=== PATIENT | female | born 1975 | race Caucasian/White ===

== ENCOUNTER 2016-10-04 05:47 | Emergency (ER) | payer OTHER ==
[~2016-10-04] VITALS: Ht 160 cm; Wt 53.4 kg
[~2016-10-04 05:47] MED LIST: BUPR1TAB70 PO; [UNRECOGNIZED DRUG - OTHER]
[2016-10-04 05:56] VITALS: BP 152/90; PULSE 99; RESP 12; TEMP 98.3; O2SAT 98
[2016-10-04] MEDS ORDERED: BUPR1TAB70 PO (06:00)
[2016-10-04] MEDS ORDERED: SODIUM CHLOR 0.9% 1000 ML INJ 1,000 ML IV SCH (06:15)
--- NOTE | 2016-10-04 06:18 | PD ---
HPI Chief Complaint: GI Complaint Time Seen by Provider: 06:15 Travel History International Travel<30 days: No Contact w/Intl Traveler<30days: No Traveled to known affect area: No History of Present Illness HPI 41-year-old female with chronic constipation presents to the emergency department with lower abdominal and back cramping and complaint of red blood per rectum this morning. Patient admits to daily alcohol use and states yesterday she celebrated her birthday and dry or alcohol use. Patient states this morning due to crampy abdominal pain and urge to have a bowel movement did use a fleets enema. Patient states she typically uses a frequent fleets enema on a frequent basis. Last menstrual period was 2 weeks ago and normal for her. Patient denies . PFSH Past Medical History Narrative Medical Chronic constipation, anxiety depression, fallopian tube procedure for infertility; daily alcohol use; nursing notes reviewed ?: Not LMP: 09/17/16 Social History Tobacco Use: No Allergies-Medications (Allergen,Severity, Reaction): Coded Allergies: No Known Allergies (Verified , CONFIRM?, 10/04/16) Reported Meds & Prescriptions Reported Meds & Active Scripts Active Reported Bupropion HCl ER 12 HR (Bupropion HCl) 100 Mg Tab 100 Mg PO DAILY Review of Systems Except as stated in HPI: all other systems reviewed are Neg General / Constitutional: No: Fever, Chills HENT: No: Congestion Cardiovascular: No: Chest Pain or Discomfort Respiratory: No: Shortness of Breath Gastrointestinal: Positive: Nausea, Vomiting, Hematochezia, No: Abdominal Pain Genitourinary: No: Dysuria Musculoskeletal: No: Pain Skin: No Rash Neurologic: Positive: Dizziness Psychiatric: Positive: Anxiety Hematologic/Lymphatic: No: Lymph Node Enlargement Physical Exam Narrative GENERAL: Well-developed well-nourished female in no acute distress no respiratory distress appears mildly anxious. SKIN: Warm and dry. HEAD: Normocephalic. EYES: No scleral icterus. No injection or drainage. NECK: Supple, trachea midline. No JVD or lymphadenopathy. CARDIOVASCULAR: Regular rate and rhythm without murmurs, gallops, or rubs. RESPIRATORY: Breath sounds equal bilaterally. No accessory muscle use. GASTROINTESTINAL: Abdomen soft, bilateral lower quadrant tenderness without guarding or rebound, nondistended. Rectal exam: No external hemorrhoids fissures; normal sphincter tone; rectal vault empty, mucus on glove brown no gross blood. Hemoccult positive. MUSCULOSKELETAL: No cyanosis, or edema. BACK: Nontender without obvious deformity. No CVA tenderness. Data Data Last Documented VS Vital Signs Date Time Temp Pulse Resp B/P Pulse Ox O2 Delivery O2 Flow Rate FiO2 10/04/16 06:59 16 99 Room Air 10/04/16 06:25 86 121/84 97 119/67 102 109/75 10/04/16 05:56 98.3 Orders Comprehensive Metabolic Panel (10/04/16 06:15) Lipase (10/04/16 06:15) Prothrombin Time / Inr (Pt) (10/04/16 06:15) Act Partial Throm Time (Ptt) (10/04/16 06:15) Alcohol (Ethanol) (10/04/16 06:15) Urinalysis - C+S If Indicated (10/04/16 06:15) Type And Screen (10/04/16 06:15) Chest, Single Ap (10/04/16 06:15) Ecg Monitoring (10/04/16 06:15) Iv Access Insert/Monitor (10/04/16 06:15) Orthostatic Vital Signs (10/04/16 06:15) Oximetry (10/04/16 06:15) Sodium Chlor 0.9% 1000 Ml Inj (Ns 1000 M (10/04/16 06:15) Ct Abd/Pel W Iv Contrast(Rout) (10/04/16 ) Ed Urine Pregnancytest Poc (10/04/16 06:15) Complete Blood Count With Diff (10/04/16 06:15) Magnesium (Mg) (10/04/16 06:15) Ondansetron Inj (Zofran Inj) (10/04/16 06:30) Sodium Chlor 0.9% 1000 Ml Inj (Ns 1000 M (10/04/16 07:00) Magnesium Sulfate 1 Gm Premix (Magnesium (10/04/16 07:15) Thiamine Inj (Thiamine Inj) (10/04/16 07:15) Labs Laboratory Tests Test 10/04/16 10/04/16 06:15 06:40 White Blood Count 9.5 TH/MM3 Red Blood Count 3.73 MIL/MM3 Hemoglobin 13.6 GM/DL Hematocrit 40.0 % Mean Corpuscular Volume 107.1 FL Mean Corpuscular Hemoglobin 36.4 PG Mean Corpuscular Hemoglobin 34.0 % Concent Red Cell Distribution Width 12.3 % Platelet Count 195 TH/MM3 Mean Platelet Volume 6.6 FL Neutrophils (%) (Auto) 79.8 % Lymphocytes (%) (Auto) 12.4 % Monocytes (%) (Auto) 7.1 % Eosinophils (%) (Auto) 0.1 % Basophils (%) (Auto) 0.6 % Neutrophils # (Auto) 7.5 TH/MM3 Lymphocytes # (Auto) 1.2 TH/MM3 Monocytes # (Auto) 0.7 TH/MM3 Eosinophils # (Auto) 0.0 TH/MM3 Basophils # (Auto) 0.1 TH/MM3 CBC Comment DIFF FINAL Differential Comment Prothrombin Time 10.5 SEC Prothromb Time International 1.0 RATIO Ratio Activated Partial 23.0 SEC Thromboplast Time Sodium Level 139 MEQ/L Potassium Level 4.1 MEQ/L Chloride Level 102 MEQ/L Carbon Dioxide Level 19.9 MEQ/L Anion Gap 17 MEQ/L Blood Urea Nitrogen 10 MG/DL Creatinine 0.73 MG/DL Estimat Glomerular Filtration 87 ML/MIN Rate Random Glucose 82 MG/DL Calcium Level 9.3 MG/DL Magnesium Level 1.4 MG/DL Total Bilirubin 1.0 MG/DL Aspartate Amino Transf 220 U/L (AST/SGOT) Alanine Aminotransferase 141 U/L (ALT/SGPT) Alkaline Phosphatase 90 U/L Total Protein 7.9 GM/DL Albumin 3.9 GM/DL Lipase 137 U/L Ethyl Alcohol Level 134 MG/DL Urine Collection Type CLEAN CATCH Urine Color NINO Urine Turbidity CLEAR Urine pH 5.5 Urine Specific [place] 1.021 Urine Protein 30 mg/dL Urine Glucose (UA) NEG mg/dL Urine Ketones 40 mg/dL Urine Occult Blood NEG Urine Nitrite NEG Urine Bilirubin NEG Urine Leukocyte Esterase NEG Urine RBC 10-14 /hpf Urine Squamous Epithelial 6-8 /hpf Cells Urine Transitional Epithelial 0-5 /hpf Cells Urine Amorphous Sediment FEW Microscopic Urinalysis Comment CULT NOT INDICATED Urine Collection Time 0640 [facility] Medical Decision Making Medical Screen Exam Complete: Yes Emergency Medical Condition: Yes Medical Record Reviewed: Yes Interpretation(s) alcohol: 134, elevated cbc: White cell count hemoglobin hematocrit platelet count and automated differential values grossly within normal range Metabolic panel: Mild decreased bicarbonate with anion gap of 17; been a creatinine values are normal range and ratio of BUN to creatinine is less than 30-1 unlikely upper GI bleed; patient with elevated transaminases consistent with alcohol use; serum magnesium mildly decreased at 1.4 Urinalysis: Small amount of blood specific gravity within normal limits culture not indicated [id number] hCG negative Differential Diagnosis Rectal bleeding, GI bleed, colitis, diverticulitis, UTI, alcohol misuse, alcohol withdrawal, anemia Narrative Course IV access obtained specimens collected and sent for resulting patient administered Zofran for nausea vomiting Orthostatic measurements obtained with variance greater than 20 beats per minute /mmHg; patient administered 1 L of normal saline; hemoglobin 13.6 CT abdomen and pelvis ordered; patient serum alcohol 134; suspect patient has potential colitis. Patient administered Zofran for nausea and vomiting patient given magnesium and thiamine. At 7:10 AM care signed over to oncoming physician Dr. Seth Bland Point of Care Internal Pos. & Neg. Controls: Passed Fecal Specimen Occult Blood: Positive Saima Rouse MD Oct 04, 2016 06:18
[2016-10-04 06:25] VITALS: BP_SYST 109; BP_SYST 119; BP_SYST 121; BP_DIAS 67; BP_DIAS 75; BP_DIAS 84
[2016-10-04] MEDS ORDERED: ONDANSETRON HCL 4 MG/2 ML VIAL IV PUSH ONE (06:30)
[2016-10-04 06:41] LABS: AUTOMATED NEUTROPHIL # 7.5 TH/MM3 (1.8-7.7); BASOPHIL # 0.1 TH/MM3 (0-0.2); BASOPHIL % 0.6 % (0.0-2.0); EOSINOPHIL % 0.1 % (0.0-4.0); HEMO FLAGS DIFF FINAL; LYMPH % 12.4 % (9.0-44.0); LYMPHOCYTE # 1.2 TH/MM3 (1.0-4.8); MEAN CELL VOLUME 107.1 FL (80.0-100.0); MEAN CORPUSCULAR HEMOGLOBIN 36.4 PG (27.0-34.0); MONO % 7.1 % (0.0-8.0); NEUT % 79.8 % (16.0-70.0); PLATELET COUNT 195 TH/MM3 (150-450); RED BLOOD COUNT 3.73 MIL/MM3 (4.00-5.30); RED CELL DISTRIBUTION WIDTH 12.3 % (11.6-17.2); WHITE BLOOD COUNT 9.5 TH/MM3 (4.0-11.0)
[2016-10-04 06:50] LABS: CHLORIDE 102 MEQ/L (98-107); POTASSIUM 4.1 MEQ/L (3.5-5.1); SODIUM (NA) 139 MEQ/L (136-145)
[2016-10-04 06:53] LABS: ANION GAP 17 MEQ/L (5-15); BICARBONATE 19.9 MEQ/L (21.0-32.0); MAGNESIUM 1.4 MG/DL (1.5-2.5); PROTHROMBIN TIME - PATIENT 10.5 SEC (9.8-11.6)
[2016-10-04 06:53] LABS: BLOOD, URINE NEG (NEG); GLUCOSE,URINE NEG (NEG); KETONE, URINE 40 mg/dL (NEG); NITRITE,URINE NEG (NEG); PH, URINE 5.5 (5.0-8.5)
[2016-10-04 06:54] LABS: BLOOD UREA NITROGEN 10 MG/DL (7-18)
--- NOTE | 2016-10-04 06:55 | RADRPT ---
EXAM DATE/TIME: 10/04/2016 06:44 [facility] COMPARISON: No previous studies available for comparison. INDICATIONS : Vomiting, constipation, lower abdominal pain, blood in stool. MEDICAL HISTORY : Chronic constipation & vomiting. SURGICAL HISTORY : Dilitation of the fallopian tubes. ENCOUNTER: Initial ACUITY: 1 day PAIN SCORE: 8/10 LOCATION: lower quadrant abdomen FINDINGS: A single view of the chest demonstrates the lungs to be symmetrically aerated without evidence of mas s, infiltrate or effusion. The cardiomediastinal contours are unremarkable. Osseous structures are intact. CONCLUSION: 1. No acute cardiopulmonary disease. Daniel Cowart MD on October 04, 2016 at 6:53 Board Certified Radiologist. This report was verified electronically.
[2016-10-04 06:56] LABS: ALT (GPT) 141 U/L (10-53); AST (GOT) 220 U/L (15-37); GLOMERULAR FILTRATION RATE 87 ML/MIN (>89)
[2016-10-04 06:56] LABS: METHOD OF COLLECTION CLEAN CATCH
[2016-10-04 06:57] LABS: URINE COLOR AMBER (YELLW/STRAW)
[2016-10-04 06:58] LABS: COMMENT (UR) CULT NOT INDICATED; COMMENT2 (UR) MUCOUS PRESENT; CULTURE IF INDICATED CULT NOT INDICATED
[2016-10-04 06:59] VITALS: RESP 16; O2SAT 99
[2016-10-04 06:59] LABS: ALKALINE PHOSPHATASE 90 U/L (45-117)
[2016-10-04 06:59] LABS: TRANSITIONAL EPI CELLS, URINE 0-5 /hpf
[2016-10-04] MEDS ORDERED: SODIUM CHLOR 0.9% 1000 ML INJ 1,000 ML IV ONE (07:00)
[2016-10-04] MEDS ORDERED: MAGNESIUM SULFATE 1 GM PREMIX 100 ML IV ONE (07:15)
[2016-10-04] MEDS ORDERED: THIAMINE INJ 100 MG in SODIUM CHLORIDE 0.9% INJ 100 ML IV ONE (07:15)
[2016-10-04] MEDS ORDERED: IOHEXOL 350 MG/ML 10 ML VIAL (for RAD DIAG) IV ONE (07:24)
[2016-10-04 07:34] VITALS: BP 112/77; PULSE 88; RESP 16; O2SAT 100
--- NOTE | 2016-10-04 07:35 | RADRPT ---
EXAM DATE/TIME: 10/04/2016 07:08 [facility] COMPARISON: No previous studies available for comparison. INDICATIONS : Lower abdominal pain and back pain. Bloody stool and urine. Nausea and vomiting since 2a.m. IV CONTRAST: 85 cc Omnipaque 350 (iohexol) IV ORAL CONTRAST: No oral contrast ingested. RADIATION DOSE: 4.96 CTDIvol (mGy) MEDICAL HISTORY : Chronic constipation. SURGICAL HISTORY : None. ENCOUNTER: Initial ACUITY: 1 day PAIN SCALE: 7/10 LOCATION: lower quadrant TECHNIQUE: Volumetric scanning of the abdomen and pelvis was performed. Using automated exposure control and ad justment of the mA and/or kV according to patient size, radiation dose was kept as low as reasonably achievable to obtain optimal diagnostic quality images. DICOM format image data is available electro nically for review and comparison. FINDINGS: There is mild hepatic steatosis. Adjacent to the falciform ligament an area of low attenuation seen s uggesting more focal steatosis greater than background. Gallbladder, spleen, pancreas, adrenals, kidn eys are unremarkable. Urinary bladder, uterus and right ovary unremarkable. There are 2 cysts associa jonn with the left ovary measuring 1.9 and 1.8 cm on axial image 63. There is diffuse bowel wall thick ening involving the entire colon. There is mild induration of the pericolonic fat. This is characteri stic of colitis. The appendix is not positively identified. There is no adenopathy. No aneurysm is se en. Osseous structures are intact. Lung bases are clear. CONCLUSION: 1. Hepatic steatosis. 2. Diffuse colonic wall thickening and mild induration of the pericolonic fat characteristic of colit is. 3. Left ovarian cysts. Nehemias Gallego MD on October 04, 2016 at 7:31 Board Certified Radiologist. This report was verified electronically.
[2016-10-04 08:37] VITALS: BP 132/95; PULSE 100; RESP 18; O2SAT 100
[2016-10-04] MEDS ORDERED: DICY10 PO (08:41)
[2016-10-04] MEDS ORDERED: METR-1 PO (08:41)
--- NOTE | 2016-10-04 08:41 | PD ---
Data Data Last Documented VS Vital Signs Date Time Temp Pulse Resp B/P Pulse Ox O2 Delivery O2 Flow Rate FiO2 10/04/16 07:34 88 16 112/77 100 Room Air 10/04/16 05:56 98.3 Orders Comprehensive Metabolic Panel (10/04/16 06:15) Lipase (10/04/16 06:15) Prothrombin Time / Inr (Pt) (10/04/16 06:15) Act Partial Throm Time (Ptt) (10/04/16 06:15) Alcohol (Ethanol) (10/04/16 06:15) Urinalysis - C+S If Indicated (10/04/16 06:15) Type And Screen (10/04/16 06:15) Chest, Single Ap (10/04/16 06:15) Ecg Monitoring (10/04/16 06:15) Iv Access Insert/Monitor (10/04/16 06:15) Orthostatic Vital Signs (10/04/16 06:15) Oximetry (10/04/16 06:15) Sodium Chlor 0.9% 1000 Ml Inj (Ns 1000 M (10/04/16 06:15) Ct Abd/Pel W Iv Contrast(Rout) (10/04/16 ) Ed Urine Pregnancytest Poc (10/04/16 06:15) Complete Blood Count With Diff (10/04/16 06:15) Magnesium (Mg) (10/04/16 06:15) Ondansetron Inj (Zofran Inj) (10/04/16 06:30) Sodium Chlor 0.9% 1000 Ml Inj (Ns 1000 M (10/04/16 07:00) Magnesium Sulfate 1 Gm Premix (Magnesium (10/04/16 07:15) Thiamine Inj (Thiamine Inj) (10/04/16 07:15) Iohexol 350 Inj (Omnipaque 350 Inj) (10/04/16 07:24) Metronidazole (Flagyl) (10/04/16 08:45) Dicyclomine (Bentyl) (10/04/16 08:45) Labs Laboratory Tests Test 10/04/16 10/04/16 06:15 06:40 White Blood Count 9.5 TH/MM3 Red Blood Count 3.73 MIL/MM3 Hemoglobin 13.6 GM/DL Hematocrit 40.0 % Mean Corpuscular Volume 107.1 FL Mean Corpuscular Hemoglobin 36.4 PG Mean Corpuscular Hemoglobin 34.0 % Concent Red Cell Distribution Width 12.3 % Platelet Count 195 TH/MM3 Mean Platelet Volume 6.6 FL Neutrophils (%) (Auto) 79.8 % Lymphocytes (%) (Auto) 12.4 % Monocytes (%) (Auto) 7.1 % Eosinophils (%) (Auto) 0.1 % Basophils (%) (Auto) 0.6 % Neutrophils # (Auto) 7.5 TH/MM3 Lymphocytes # (Auto) 1.2 TH/MM3 Monocytes # (Auto) 0.7 TH/MM3 Eosinophils # (Auto) 0.0 TH/MM3 Basophils # (Auto) 0.1 TH/MM3 CBC Comment DIFF FINAL Differential Comment Prothrombin Time 10.5 SEC Prothromb Time International 1.0 RATIO Ratio Activated Partial 23.0 SEC Thromboplast Time Sodium Level 139 MEQ/L Potassium Level 4.1 MEQ/L Chloride Level 102 MEQ/L Carbon Dioxide Level 19.9 MEQ/L Anion Gap 17 MEQ/L Blood Urea Nitrogen 10 MG/DL Creatinine 0.73 MG/DL Estimat Glomerular Filtration 87 ML/MIN Rate Random Glucose 82 MG/DL Calcium Level 9.3 MG/DL Magnesium Level 1.4 MG/DL Total Bilirubin 1.0 MG/DL Aspartate Amino Transf 220 U/L (AST/SGOT) Alanine Aminotransferase 141 U/L (ALT/SGPT) Alkaline Phosphatase 90 U/L Total Protein 7.9 GM/DL Albumin 3.9 GM/DL Lipase 137 U/L Ethyl Alcohol Level 134 MG/DL Urine Collection Type CLEAN CATCH Urine Color NINO Urine Turbidity CLEAR Urine pH 5.5 Urine Specific [place] 1.021 Urine Protein 30 mg/dL Urine Glucose (UA) NEG mg/dL Urine Ketones 40 mg/dL Urine Occult Blood NEG Urine Nitrite NEG Urine Bilirubin NEG Urine Leukocyte Esterase NEG Urine RBC 10-14 /hpf Urine Squamous Epithelial 6-8 /hpf Cells Urine Transitional Epithelial 0-5 /hpf Cells Urine Amorphous Sediment FEW Microscopic Urinalysis Comment CULT NOT INDICATED Urine Collection Time 0640 [facility] Supervised Visit with NEAL: Yes Narrative Course Is a 41-year-old woman who presents emergency department for abdominal and back cramping and some bright red blood per rectum. Drinks daily and drink more yesterday because it was her birthday. She has some crampy abdominal pain. She was seen by Dr. Rouse, and had workup performed. Signed out to me to follow-up on the results of CT. Studies show: CBC is unremarkable. CMP elevated AST and ALT, little bit of elevated anion gap, magnesium is low UA with a little bit of hematuria. Alcohol 134 Chest x-ray negative CT abdomen and pelvis: Hepatic pseudoptosis, some colonic wall thickening and mild induration of the pericolonic fat. Diagnosis Primary Impression: Colitis Additional Instruction: Take metronidazole as prescribed. Use caution as you cannot drink alcohol while taking this medicine. Use Bentyl as needed for abdominal cramping. Follow-up with your primary doctor in a days if not completely well. Med/Other Pt SpecificInfo: Prescription(s) given Scripts Dicyclomine (Bentyl)10 Mg Cap10 Mg PO TID PRN (ABDOMINAL CRAMPING) #15 CAP Ref 0 Prov:Efren Ann MD 10/04/16 Metronidazole (Flagyl)500 Mg Wnt404 Mg PO TID 10 Days Ref 0 Prov:Efren Ann MD 10/04/16 Disposition: 01 DISCHARGE HOME Condition: Stable Efren Ann MD Oct 04, 2016 08:41
[2016-10-04] MEDS ORDERED: metroNIDAZOLE 500 MG TAB PO ONE (08:45)
[2016-10-04] MEDS ORDERED: DICYCLOMINE HCL 10 MG CAP PO ONE (08:45)
[2016-10-04 09:45] VITALS: BP 119/76
== END 2016-10-04 09:53 | disposition home or self-care (01) ==
LOC: PHED 05:47
DX: K52.9 Noninfective gastroenteritis and colitis, unspecified (principal); K62.5 Hemorrhage of anus and rectum; R11.2 Nausea with vomiting, unspecified; R31.9 Hematuria, unspecified; M54.5 Low back pain; Z87.19 Personal history of other diseases of the digestive system; Z86.59 Personal history of other mental and behavioral disorders
CPT/HCPCS: 71010; 74177; 80053; 81001; 83690; 83735; 84703; 85025; 85610; 85730; 86850; 86900; 86901; 96361; 96365; 96368; 96375; 99285; J2405; J3411; J3475; J7030; Q9967; 80307

== ENCOUNTER 2017-07-01 15:50 | Emergency (ER) | payer OTHER ==
[~2017-07-01] VITALS: Ht 160 cm; Wt 53.0 kg
[2017-07-01 15:52] VITALS: BP 141/95; PULSE 94; RESP 18; TEMP 98.5; O2SAT 96
[2017-07-01] MEDS ORDERED: BUPR150XL PO (16:16)
[2017-07-01] MEDS ORDERED: LORazepam 2 MG/ML VIAL IV PUSH ONE (16:30)
[2017-07-01] MEDS ORDERED: SODIUM CHLOR 0.9% 1000 ML INJ 1,000 ML IV ONE (16:30)
--- NOTE | 2017-07-01 16:30 | PD ---
HPI Chief Complaint: Dizziness Time Seen by Provider: 16:24 Travel History International Travel<30 days: No Contact w/Intl Traveler<30days: No Traveled to known affect area: No History of Present Illness HPI This is a 41-year-old female with history of alcoholism who presents to the emergency department with dizziness, lightheadedness, fatigue and decreased appetite that have been going on for 2 months, intermittent, moderate severity, associated with weight loss. Patient reports that she has gone through multiple stressors in the past several weeks. Her father was hospitalized in the setting of a intracranial hemorrhage, her mother had a stroke in her grandmother . She has been feeling worse and worse since then. She is also relapsed on alcohol use. PFSH Past Medical History Gastrointestinal Disorders: Yes ("CHRONIC CONSTIPATION", CHRONIC VOMITING) Influenza Vaccination: No ?: Unknown LMP: IRREG TWO MONTHS AGO : 3 Para: 1 : 2 Past Surgical History Gynecologic Surgery: Yes (FALLOPIAN TUBES "OPENED UP": 2013) Social History Alcohol Use: Yes (DAILY: "A COUPLE OF MIXED DRINKS PER NIGHT") Tobacco Use: Yes (TRYING TO QUIT) Substance Use: No Allergies-Medications (Allergen,Severity, Reaction): Coded Allergies: No Known Allergies (Verified Adverse Reaction, Unknown, CONFIRM?, 07/01/17) Reported Meds & Prescriptions Reported Meds & Active Scripts Active Reported Wellbutrin Xl 24 HR (Bupropion HCl) 150 Mg Tab 150 Mg PO DAILY Review of Systems Except as stated in HPI: all other systems reviewed are Neg Physical Exam Narrative GENERAL: Anxious appearing. SKIN: Focused skin assessment warm and dry. HEAD: Atraumatic. Normocephalic. EYES: Pupils equal and round. No injection or drainage. ENT: Moist mucous membranes NECK: Trachea midline. No thyromegaly. CARDIOVASCULAR: Regular rate and rhythm. No murmur appreciated. RESPIRATORY: Clear to auscultation. Breath sounds equal bilaterally. GASTROINTESTINAL: Abdomen soft, non-tender, nondistended. MUSCULOSKELETAL: No obvious deformities. NEUROLOGICAL: Awake and alert. No obvious cranial nerve deficits. Moving all extremities. Tremulous. PSYCHIATRIC: Appropriate mood and affect; insight and judgment normal. Data Data Last Documented VS Vital Signs Date Time Temp Pulse Resp B/P (MAP) Pulse Ox O2 Delivery O2 Flow Rate FiO2 07/01/17 16:53 94 18 118/84 (95) 98 Room Air 07/01/17 15:52 98.5 Orders Orders Complete Blood Count With Diff (07/01/17 16:24) Comprehensive Metabolic Panel (07/01/17 16:24) ^ Insert Iv (07/01/17 16:24) Thyroid Stimulating Hormone (07/01/17 16:24) Lorazepam Inj (Ativan Inj) (07/01/17 16:30) Sodium Chlor 0.9% 1000 Ml Inj (Ns 1000 M (07/01/17 16:30) Ed Urine Pregnancytest Poc (07/01/17 16:24) Labs Laboratory Tests Test 07/01/17 16:42 White Blood Count 6.5 TH/MM3 Red Blood Count 3.89 MIL/MM3 Hemoglobin 13.6 GM/DL Hematocrit 40.2 % Mean Corpuscular Volume 103.3 FL Mean Corpuscular Hemoglobin 34.9 PG Mean Corpuscular Hemoglobin Concent 33.8 % Red Cell Distribution Width 12.3 % Platelet Count 140 TH/MM3 Mean Platelet Volume 6.1 FL Neutrophils (%) (Auto) 56.2 % Lymphocytes (%) (Auto) 33.1 % Monocytes (%) (Auto) 9.2 % Eosinophils (%) (Auto) 1.1 % Basophils (%) (Auto) 0.4 % Neutrophils # (Auto) 3.6 TH/MM3 Lymphocytes # (Auto) 2.2 TH/MM3 Monocytes # (Auto) 0.6 TH/MM3 Eosinophils # (Auto) 0.1 TH/MM3 Basophils # (Auto) 0.0 TH/MM3 CBC Comment DIFF FINAL Differential Comment Blood Urea Nitrogen 9 MG/DL Creatinine 0.81 MG/DL Random Glucose 79 MG/DL Total Protein 7.9 GM/DL Albumin 4.2 GM/DL Calcium Level 9.5 MG/DL Alkaline Phosphatase 82 U/L Aspartate Amino Transf (AST/SGOT) 166 U/L Alanine Aminotransferase (ALT/SGPT) 88 U/L Total Bilirubin 1.0 MG/DL Sodium Level 136 MEQ/L Potassium Level 3.7 MEQ/L Chloride Level 96 MEQ/L Carbon Dioxide Level 24.1 MEQ/L Anion Gap 16 MEQ/L Estimat Glomerular Filtration Rate 77 ML/MIN Thyroid Stimulating Hormone 3rd Gen 2.530 uIU/ML MDM Medical Decision Making Medical Screen Exam Complete: Yes Emergency Medical Condition: Yes Interpretation(s) Afebrile, mild tachycardia, mild hypertension No leukocytosis Macrocytosis Mild transaminitis TSH is normal Differential Diagnosis Acute alcohol withdrawal, anxiety, panic attack, depression Narrative Course This is a 41-year-old female who presents to the emergency department with poor appetite and anxiety. Patient is under a lot of stress at home. Labs are all reassuring. She appears to be in mild alcohol withdrawal with hypertension and tremulousness. Her symptoms significantly improved after Ativan. Patient was given a short course of Ativan for home and asked to follow-up with her primary care physician and her mental health counselor regarding anxiety and challenges with alcohol abuse. Diagnosis Primary Impression: Anxiety Patient Instructions: General Instructions Additional Instructions: If you are having thoughts of hurting herself or others return to the emergency room. Follow-up with your mental health counselor and your primary care physician regarding your stress and alcohol use. Med/Other Pt SpecificInfo: Prescription(s) given Scripts Lorazepam (Ativan) 0.5 Mg Tab 0.5 MG PO Q6H Y for ANXIETY AND/OR AGITATION, #10 TAB 0 Refills Prov: Carolynn Kingston MD 07/01/17 Disposition: 01 DISCHARGE HOME Condition: Stable Carolynn Kingston MD July 01, 2017 16:30
[2017-07-01 16:51] LABS: AUTOMATED NEUTROPHIL # 3.6 TH/MM3 (1.8-7.7); BASOPHIL % 0.4 % (0.0-2.0); EOSINOPHIL # 0.1 TH/MM3 (0-0.4); EOSINOPHIL % 1.1 % (0.0-4.0); HEMATOCRIT 40.2 % (35.0-46.0); HEMOGLOBIN 13.6 GM/DL (11.6-15.3); LYMPH % 33.1 % (9.0-44.0); LYMPHOCYTE # 2.2 TH/MM3 (1.0-4.8); MEAN CELL VOLUME 103.3 FL (80.0-100.0); MEAN CORPUSCULAR HEMOGLOBIN 34.9 PG (27.0-34.0); MEAN CORPUSCULAR HGB CONC 33.8 % (32.0-36.0); MEAN PLATELET VOLUME 6.1 FL (7.0-11.0); MONO % 9.2 % (0.0-8.0); MONOCYTE # 0.6 TH/MM3 (0-0.9); NEUT % 56.2 % (16.0-70.0); PLATELET COUNT 140 TH/MM3 (150-450); RED BLOOD COUNT 3.89 MIL/MM3 (4.00-5.30); RED CELL DISTRIBUTION WIDTH 12.3 % (11.6-17.2); WHITE BLOOD COUNT 6.5 TH/MM3 (4.0-11.0)
[2017-07-01 16:53] VITALS: BP 118/84; PULSE 94; RESP 18; O2SAT 98
[2017-07-01 17:02] LABS: CHLORIDE 96 MEQ/L (98-107); SODIUM (NA) 136 MEQ/L (136-145)
[2017-07-01 17:05] LABS: ALBUMIN 4.2 GM/DL (3.4-5.0); BICARBONATE 24.1 MEQ/L (21.0-32.0); BLOOD UREA NITROGEN 9 MG/DL (7-18); CALCIUM 9.5 MG/DL (8.5-10.1); GLUCOSE,RANDOM 79 MG/DL (74-106)
[2017-07-01 17:08] LABS: ALT (GPT) 88 U/L (10-53); AST (GOT) 166 U/L (15-37)
[2017-07-01 17:09] LABS: CREATININE 0.81 MG/DL (0.50-1.00); GLOMERULAR FILTRATION RATE 77 ML/MIN (>89)
[2017-07-01 17:10] LABS: TOTAL PROTEIN 7.9 GM/DL (6.4-8.2)
[2017-07-01 17:11] LABS: ALKALINE PHOSPHATASE 82 U/L (45-117)
[2017-07-01] MEDS ORDERED: LORA-392 PO (17:36)
== END 2017-07-01 17:51 | disposition home or self-care (01) ==
LOC: PHED 15:50
DX: F41.9 Anxiety disorder, unspecified (principal); R00.0 Tachycardia, unspecified; I10 Essential (primary) hypertension; D75.89 Other specified diseases of blood and blood-forming organs; R74.0 Nonspecific elevation of levels of transaminase and lactic acid dehydrogenase [LDH]; R42 Dizziness and giddiness; R53.83 Other fatigue; Z87.891 Personal history of nicotine dependence; Z79.899 Other long term (current) drug therapy
CPT/HCPCS: 80053; 84443; 84703; 85025; 96361; 96374; 99284; J2060; J7030

== ENCOUNTER 2017-10-03 04:18 | Inpatient (IN) ==
[2017-10-03] MEDS ORDERED: Morphine Inj 4 MG/ML Vial IV.PUSH ONE (04:38)
[2017-10-03] MEDS ORDERED: Sod Chloride 0.9% Inj 1,000 ML IV.SIG ONE ×2 (04:38→06:08)
--- NOTE | 2017-10-03 04:42 | ED ---
HPI General Chief Complaint: Abdominal Pain Stated Complaint: upper rt abd pain vomiting x 4 days Time Seen by Provider: 10/03/17 04:38 Source: patient and family Mode of arrival: ambulatory Limitations: no limitations History of Present Illness HPI narrative: 42-year-old female patient with history of alcohol abuse, liver issues, presents to the ER today before 4 days history of nausea, vomiting, upper abdominal pains which she currently rates as 7 out of 10. She denies any diarrhea, fevers, or any other symptoms. She states that she was here about a year ago with similar symptoms, had been drinking at that time also, and states that her liver function tests are very elevated at that time. She admits she has been drinking more recently as well. She also complains of shortness of breath, pains with deep breaths especially in the upper abdomen area. She denies any coughing or other symptoms. Related Data Home Medications Medication Instructions Recorded Confirmed trazodone 50 mg PO HS PRN 10/03/17 10/03/17 Allergies Allergy/AdvReac Type Severity Reaction Status Date / Time No Known Allergies Allergy Unverified 10/03/17 05:02 Review of Systems Except as stated in HPI: all other systems reviewed are negative PMFSH History History Provided By: Patient Medical History Medical History (Acute) Cirrhosis (Acute) Tubal occlusion (Acute) Alcohol abuse (Acute) Surgical History Surgical History Hx of laparoscopy (Acute) Social History Social History Substance History: No History of Abuse Second Hand Smoke Exposure: No Smoking Status: Former smoker How Often Do You Have a Drink Containing Alcohol: 4 or more times a week Recent Travel in [facility] within the Last 8 Weeks: No Recent Out of Country Travel within the Last 8 Weeks: No Exam Narrative Exam Narrative: GENERAL: Well-developed middle-age female patient currently in mild distress. Awake and oriented 3. SKIN: Focused skin assessment warm/dry. HEAD: Atraumatic. Normocephalic. EYES: Pupils equal and round. No scleral icterus. No injection or drainage. ENT: No nasal bleeding or discharge. Mucous membranes pink and moist. NECK: Trachea midline. No JVD. CARDIOVASCULAR: Regular rate and rhythm. No murmur appreciated. RESPIRATORY: No accessory muscle use. Clear to auscultation. Breath sounds equal bilaterally. GASTROINTESTINAL: Abdomen soft, upper abdominal tenderness especially in the right upper quadrant without guarding or rebound, nondistended. Hepatic and splenic margins not palpable. MUSCULOSKELETAL: No obvious deformities. No clubbing. No cyanosis. No edema. NEUROLOGICAL: Awake and alert. No obvious cranial nerve deficits. Motor grossly within normal limits. Normal speech. PSYCHIATRIC: Appropriate mood and affect; insight and judgment normal. Course Hospital Course: Lab work shows significant lactate elevation, ABG was ordered for further evaluation whether there is underlying acidosis as well. It appears with the glucose elevation, there is likely an new onset diabetes. DKA protocol had been initiated by me and IV insulin was given in the ER as well. She received 2 L of fluids in the ER. CAT scan returned showing signs of possible ulcerative colitis, did not show other signs of acute intra-abdominal processes. At this point, case had been discussed with Dr. Land who agrees to admit the patient in the ICU. Initial Documented Vital Signs Temperature 97.6 F 10/03/17 04:23 Pulse Rate 126 H 10/03/17 04:23 Blood Pressure 107/78 10/03/17 04:23 Pulse Oximetry 98 10/03/17 04:23 Last Documented Vital Signs Temperature 98.4 F 10/03/17 06:56 Pulse Rate 104 H 10/03/17 06:56 Respiratory Rate 16 10/03/17 06:56 Blood Pressure 120/86 10/03/17 06:56 Pulse Oximetry 97 10/03/17 06:56 Critical Care Time Critical Care Time: Yes Total Critical Care Time: 35 Attestation: Aggregate critical care time was 35 minutes. Time to perform other separately billable procedures was not included in the critical care time. My time did not include minutes spent treating any other patients simultaneously or on activities that did not directly contribute to the patient's treatment. The services I provided to this patient were to treat and/or prevent clinically significant deterioration that could result in: Worsening in her electrolyte abnormalities, acute intra-abdominal processes, dysrhythmias, DKA, I provided critical care services requiring my management, as noted below: Chart data review, documentation time, medication orders and management, vital sign assessments/reviewing monitor data, ordering and reviewing lab tests, ordering and interpreting/reviewing x-rays and diagnostic studies, care of the patient and discussion of the patient with the admitting physicians. Medical Decision Making Differential Diagnosis Differential Diagnosis: Gastritis versus gastroenteritis versus cholecystitis versus hepatitis versus other acute intra-abdominal processes versus dehydration versus electrolyte abnormal Lab Data Lab results reviewed: Yes I reviewed the patient's lab results. Result diagrams: 10/03/17 04:50 10/03/17 04:50 Lab Results 10/03/17 10/03/17 10/03/17 Range/Units 04:50 04:50 04:50 CBC w Diff Auto diff final WBC 14.3 H (4.0-11.0) th/mm3 RBC 4.19 (4.00-5.30) mil/mm3 Hgb 15.5 H (11.6-15.3) gm/dL Hct 44.8 (35.0-46.0) % MCV 107.0 H (80.0-100.0) fL MCH 37.0 H (27.0-34.0) pg MCHC 34.6 (32.0-36.0) % RDW 15.0 (11.6-17.2) % Plt Count 174 (150-450) th/mm3 MPV 8.0 (7.0-11.0) fL Neut % (Auto) 83.6 H (16.0-70.0) % Lymph % (Auto) 4.4 L (9.0-44.0) % Victoria % (Auto) 11.8 H (0.0-8.0) % Eos % (Auto) 0.0 (0.0-4.0) % Baso % (Auto) 0.2 (0.0-2.0) % Neut # (Auto) 12.0 H (1.8-7.7) th/mm3 Lymph # (Auto) 0.6 L (1.0-4.8) th/mm3 Victoria # (Auto) 1.7 H (0.0-0.9) th/mm3 Eos # (Auto) 0.0 (0.0-0.4) th/mm3 Baso # (Auto) 0.0 (0.0-0.2) th/mm3 WBC Differential . Differential Comment . Puncture Site Patient Temperature O2 Saturation (90-100) % ABG pH (7.380-7.420) ABG pCO2 (38-42) mmHg ABG pO2 (61-120) mmHg ABG HCO3 (22-26) mmol/L ABG O2 Content (12.0-20.0) Vol % ABG Base Excess (-2-2) mmol/L ABG Methemoglobin (0-2) % Saad Test Hemoglobin (12.0-16.0) G/DL Carboxyhemoglobin (0-4) % O2 Delivery Device Inspired O2 % Critical Value Sodium 130 L (136-145) meq/L Potassium 3.9 (3.5-5.1) meq/L Chloride 84 L (98-107) meq/L Carbon Dioxide 9.5 L (21.0-32.0) meq/L Anion Gap 37 H (5-15) meq/L BUN 18 (7-18) mg/dL Creatinine 1.90 H (0.50-1.00) mg/dL Estimated GFR 29 L (>89) mL/min Random Glucose 268 H (74-106) mg/dL Lactic Acid 9.4 H* (0.4-2.0) mmol/L Calcium 9.6 (8.5-10.1) mg/dL Total Bilirubin 2.0 H (0.2-1.0) mg/dL AST 136 H (15-37) U/L ALT 95 H (10-53) U/L Alkaline Phosphatase 108 (45-117) U/L Total Protein 10.1 H (6.4-8.2) g/dL Albumin 5.4 H (3.4-5.0) g/dL Lipase 315 (73-393) U/L Beta HCG, Qual (0-5) mIU/mL 10/03/17 10/03/17 Range/Units 04:50 07:25 CBC w Diff WBC (4.0-11.0) th/mm3 RBC (4.00-5.30) mil/mm3 Hgb (11.6-15.3) gm/dL Hct (35.0-46.0) % MCV (80.0-100.0) fL MCH (27.0-34.0) pg MCHC (32.0-36.0) % RDW (11.6-17.2) % Plt Count (150-450) th/mm3 MPV (7.0-11.0) fL Neut % (Auto) (16.0-70.0) % Lymph % (Auto) (9.0-44.0) % Victoria % (Auto) (0.0-8.0) % Eos % (Auto) (0.0-4.0) % Baso % (Auto) (0.0-2.0) % Neut # (Auto) (1.8-7.7) th/mm3 Lymph # (Auto) (1.0-4.8) th/mm3 Victoria # (Auto) (0.0-0.9) th/mm3 Eos # (Auto) (0.0-0.4) th/mm3 Baso # (Auto) (0.0-0.2) th/mm3 WBC Differential Differential Comment Puncture Site Left radial Patient Temperature 98.6 O2 Saturation 97 (90-100) % ABG pH 7.39 (7.380-7.420) ABG pCO2 20 L* (38-42) mmHg ABG pO2 119 (61-120) mmHg ABG HCO3 12 L* (22-26) mmol/L ABG O2 Content 17.4 (12.0-20.0) Vol % ABG Base Excess -12.5 L (-2-2) mmol/L ABG Methemoglobin 1.1 (0-2) % Saad Test Present Hemoglobin 12.6 (12.0-16.0) G/DL Carboxyhemoglobin 1.2 (0-4) % O2 Delivery Device Room air Inspired O2 21 % Critical Value Yes Sodium (136-145) meq/L Potassium (3.5-5.1) meq/L Chloride (98-107) meq/L Carbon Dioxide (21.0-32.0) meq/L Anion Gap (5-15) meq/L BUN (7-18) mg/dL Creatinine (0.50-1.00) mg/dL Estimated GFR (>89) mL/min Random Glucose (74-106) mg/dL Lactic Acid (0.4-2.0) mmol/L Calcium (8.5-10.1) mg/dL Total Bilirubin (0.2-1.0) mg/dL AST (15-37) U/L ALT (10-53) U/L Alkaline Phosphatase (45-117) U/L Total Protein (6.4-8.2) g/dL Albumin (3.4-5.0) g/dL Lipase (73-393) U/L Beta HCG, Qual Less than 1.00 (0-5) mIU/mL Imaging Data Radiologist's impression: Abdomen/Pelvis CT 10/03/17 05:48 CONCLUSION: 1. Chronic inflammatory changes of the colon and terminal ileum, with evidence of more active inflammation involving the ascending and distal transverse colon. Given the chronic changes, recommend clinical correlation for inflammatory bowel disease such as ulcerative colitis. 2. Hepatic steatosis. Discharge Plan Discharge Disposition Patient Disposition: 30 Still Patient Discharge Condition Condition: Critical Discharge Details Anticipated Discharge Date: 10/03/17 Diagnosis: Terminal ileitis, Hyperglycemia, Acidosis, lactic, MAN (acute kidney injury) Physicians Team ED Provider: Alexis Ye Primary Care Provider: Michael Carter Attending Provider: Edwin Guerra Discharge Interventions Interventions: Vital Signs Last Done: 10/03/17 06:56 Status ED Status: Admitted Patient
[2017-10-03 05:12] LABS: Chloride 84 meq/L (98-107); Potassium 3.9 meq/L (3.5-5.1); Sodium 130 meq/L (136-145)
[2017-10-03 05:16] LABS: Albumin 5.4 g/dL (3.4-5.0); Anion Gap 37 meq/L (5-15); Calcium 9.6 mg/dL (8.5-10.1); Carbon Dioxide 9.5 meq/L (21.0-32.0); Lipase 315 U/L (73-393)
[2017-10-03 05:17] LABS: Blood Urea Nitrogen 18 mg/dL (7-18); Glucose,Random 268 mg/dL (74-106)
[2017-10-03 05:19] LABS: Alanine Aminotransferase 95 U/L (10-53); Aspartate Aminotransferase 136 U/L (15-37)
[2017-10-03 05:20] LABS: Glomerular Filtration Rate 29 mL/min (>89)
[2017-10-03 05:21] LABS: Total Protein 10.1 g/dL (6.4-8.2)
[2017-10-03 05:22] LABS: Alkaline Phosphatase 108 U/L (45-117)
[2017-10-03 05:23] LABS: Baso % (Auto) 0.2 % (0.0-2.0); Hematocrit 44.8 % (35.0-46.0); Hemoglobin 15.5 gm/dL (11.6-15.3); Lymph # (Auto) 0.6 th/mm3 (1.0-4.8); Lymph % (Auto) 4.4 % (9.0-44.0); Mean Corpuscular HGB Conc 34.6 % (32.0-36.0); Mono # (Auto) 1.7 th/mm3 (0.0-0.9); Mono % (Auto) 11.8 % (0.0-8.0); Neut % (Auto) 83.6 % (16.0-70.0); Platelet Count 174 th/mm3 (150-450); Red Blood Count 4.19 mil/mm3 (4.00-5.30); White Blood Count 14.3 th/mm3 (4.0-11.0)
[2017-10-03 06:57] VITALS: RESP 16
[2017-10-03] MEDS ORDERED: Potassium Chlor 40 mEq Premix 40 MEQ/100 ML PIGGYBACK IV.SIG PRN ×2 (06:57)
[2017-10-03] MEDS ORDERED: Sodium Phosphate Inj 15 MMOL in Sodium Chlor 0.9% Inj 100 ML IV.SIG PRN (06:57)
[2017-10-03] MEDS ORDERED: Insulin Regular (For Infusion) 100 UNIT in Sodium Chlor 0.9% Inj 99 ML IV.CONT PRN (06:57)
[2017-10-03] MEDS ORDERED: Potassium Chlor 20 mEq Premix 20 MEQ/100 ML PIGGYBACK IV.SIG PRN ×4 (06:57)
[2017-10-03] MEDS: Dextrose 5%/NaCl 0.9% Inj 1,000 ML IV.CONT SCH ×5 (07:11→22:18)
[2017-10-03] MEDS: Sod Chloride 0.9% Inj 1,000 ML IV.CONT SCH ×5 (07:12→22:18)
--- NOTE | 2017-10-03 07:26 | CT ---
EXAM DATE: 10/03/2017 7:15 AM EDT AGE/SEX: 42 years / Female INDICATIONS: Upper right side abdominal pain and vomiting for 4 days. CLINICAL DATA: This is the patient's initial encounter. Patient reports that signs and symptoms have been present for 4 - 6 days and indicates a pain score of 5/10. MEDICAL/SURGICAL HISTORY: Cirrhosis. Alcohol abuse, tubal occlusion. . Laparoscopy. RADIATION DOSE: 5.62 CTDI (mGy) COMPARISON: [facility], CT ABDOMEN & PELVIS W CONTRAST, 10/04/2016. . TECHNIQUE: Multiple contiguous axial images were obtained through the abdomen. Images were obtained using multiple row detector helical technique. Using automated exposure control and adjustment of the mA and/or kV according to patient size, radiation dose was kept as low as reasonably achievable to o btain optimal diagnostic quality images. DICOM format image data is available electronically for rev iew and comparison. FINDINGS: Lower Lungs: Minimal left basilar atelectasis/scarring. Liver: Diffuse hepatic steatosis. There is no dilation of the biliary tree. Gallbladder: No radiopaque gallstones seen. Spleen: Homogeneous density without enlargement. Pancreas: Unremarkable . Kidneys: Normal in size and shape. No evidence of mass or hydronephrosis. Adrenal Glands: Unremarkable. Aorta: The aorta and proximal iliac vessels are grossly unremarkable without aneurysmal dilation. Bowel/Mesentery: Fatty infiltration of the wall of the colon and terminal ileum, suggesting chronic inflammation. There is mild stranding about the ascending and distal transverse colon, suggesting a m ore acute process. No bowel obstruction. Abdominal Wall: Intact. Retroperitoneum: No evidence of adenopathy in the retrocrural, para-aortic, or deep pelvic regions. Bladder: Contours are smooth. Reproductive Organs: No abnormal masses or calcifications seen. Inguinal: The inguinal region is unremarkable without evidence of adenopathy. Bony Structures: Stable sclerotic foci in the right iliac bone, presumed to represent bone islands. CONCLUSION: 1. Chronic inflammatory changes of the colon and terminal ileum, with evidence of more active inflam mation involving the ascending and distal transverse colon. Given the chronic changes, recommend clin ical correlation for inflammatory bowel disease such as ulcerative colitis. 2. Hepatic steatosis. Electronically signed by: Michelle Cheney MD 10/03/2017 7:24 AM EDT
[2017-10-03 07:33] LABS: ABG Base Excess -12.5 mmol/L (-2-2); ABG PCO2 20 mmHg (38-42); ABG PO2 119 mmHg (61-120)
[2017-10-03] MEDS: Potassium Chlor 20 mEq Premix 20 MEQ/100 ML PIGGYBACK IV.SIG PRN ×2 (07:36→09:29)
[2017-10-03] MEDS ORDERED: Piperacil/Tazo 3.375 GM Premix 50 ML IV.SIG ONE (07:43)
[2017-10-03] MEDS ORDERED: Bisacodyl 10 MG Supp RECTAL PRN (08:18)
[2017-10-03] MEDS: Sodium Bicarbonate 8.4% Inj 150 MEQ in Water for Inj, Sterile 850 ML IV.CONT SCH (09:18)
[2017-10-03 10:09] LABS: Calcium 7.5 mg/dL (8.5-10.1); Carbon Dioxide 20.5 meq/L (21.0-32.0); Phosphorus 1.1 mg/dL (2.5-4.9)
--- NOTE | 2017-10-03 12:19 | P.CONGI ---
History of Present Illness Consult date: 10/04/07 Consult reason: Abdominal pain, suspected IBD Chief complaint: Lactic acidosis,hyperglycemia,acute kidney injury History of Present Illness: This is a 42-year-old female who was transported here to the intensive care setting from [place]. According to the patient and her record she has had 4 days before admission onset of nausea and vomiting, right upper quadrant abdominal pain which she rated a 7 out of 10. Patient states that she has a history of alcohol abuse and had quit approximately a year ago but due to stressors had started back 5 months ago. She currently denies any diarrhea or constipation and no family history of colon cancer. She is also had no EGD or colonoscopy in the past. Patient is awake and a good historian and answers questions appropriately. After her transfer to the intensive care unit here at [place] she states her right upper quadrant pain has improved some. CT scan notes chronic inflammatory changes of the colon and terminal ileum with evidence of more active inflammation involving the descending and distal transverse colon given the chronic changes recommend clinical correlation for inflammatory bowel disease such as ulcerative colitis. Hepatic steatosis. Patient denies any aggravating factors to her right upper quadrant abdominal pain except alcohol. No relieving factors which prompted patient to come to the emergency room for further treatment regimen. Patient denies any recent fevers but has noted some weakness and malaise. Labs show current hemoglobin 15.5, bilirubin 2, AST 136, ALT 95. <Randa Cartwright - Last Filed: 10/03/17 12:27> Review of Systems All other systems reviewed negative except as stated in HPI <Randa Cartwright - Last Filed: 10/03/17 12:27> PMFSH - History History Provided By: Patient - Medical History Medical History: Medical History (Last Updated 10/03/17 @ 05:11 by Mihaela Ellis RN) Cirrhosis Tubal occlusion Alcohol abuse - Surgical History Surgical History: Surgical History (Last Updated 10/03/17 @ 05:11 by Mihaela Ellis RN) Hx of laparoscopy - Tobacco History Second Hand Smoke Exposure: No Tobacco Use In Past 30 Days: Yes (QUIT 2 WEEKS AGO) Smoking Status: Former smoker - Alcohol History How Often Do You Have a Drink Containing Alcohol: 4 or more times a week - Substance Use History Substance History: No History of Abuse - Travel History Recent Travel in the [place] Within the Last 8 Weeks: No Recent Travel Out of the Country Within the Last 8 Weeks: No - Immunization History Tetanus Immunization: >5 Years Hx Influenza Vaccine This Season: No <DardenRanda Jesika - Last Filed: 10/03/17 12:27> - Medical History Medical History: Medical History (Last Updated 10/03/17 @ 05:11 by Mihaela Ellis, RN) Cirrhosis Tubal occlusion Alcohol abuse - Surgical History Surgical History: Surgical History (Last Updated 10/03/17 @ 05:11 by Mihaela Ellis, RN) Hx of laparoscopy <Arely Chauhan - Last Filed: 10/03/17 16:52> Medications and Allergies Active Medications: Active Medications Al Hydroxide/Mg Hydroxide (Milk Of Guerda Lipietro) 30 ml PO Q12H PRN PRN Reason: Mild Constipation Albuterol (Duoneb Neb (Prn)) 1 ampul NEB Q2HR NEB PRN PRN Reason: WHEEZING Bisacodyl (Dulcolax Supp) 10 mg RECTAL DAILY PRN PRN Reason: SEVERE CONSITIPATION Chlorhexidine Gluconate (Chlorhexidine 2% Cloth) 3 pack TOPICAL DAILY@0400 [facility] Stop: 10/09/17 03:59 Chlorhexidine Gluconate (Chlorhexidine 2% Cloth) 3 pack TOPICAL DAILY@0400 PRN PRN Reason: Extra cloth needed Stop: 10/09/17 03:59 Chlorhexidine Gluconate (Chlorhexidine 2% Cloth) 3 pack TOPICAL DAILY@0400 [facility] Stop: 10/09/17 03:59 Chlorhexidine Gluconate (Chlorhexidine 2% Cloth) 3 pack TOPICAL DAILY@0400 PRN PRN Reason: Extra cloth needed Stop: 10/09/17 03:59 Enoxaparin Sodium (Lovenox Inj) 30 mg SQ Q24H [facility] Dextrose/Sodium Chloride (D5w/Normal Saline Inj) 1,000 mls @ 200 mls/hr IV.CONT .Q5H [facility] Last Admin: 10/03/17 08:11 Dose: 200 mls/hr Insulin Human Regular 100 unit (/ Sodium Chloride) 100 mls @ 5 mls/hr IV.CONT TITRATE PRN; Protocol PRN Reason: See protocol Potassium Chloride (Kcl 20 Meq Premix Inj) 20 meq in 100 mls @ 100 mls/hr IV.SIG Q1H PRN PRN Reason: for K+ 4.5 to 5 Last Admin: 10/03/17 09:29 Dose: 100 mls/hr Potassium Chloride (Kcl 20 Meq Premix Inj) 20 meq in 100 mls @ 50 mls/hr IV.SIG Q2H PRN PRN Reason: for K+ 4.5 to 5 Potassium Chloride (Kcl 20 Meq Premix Inj) 20 meq in 100 mls @ 100 mls/hr IV.SIG Q1H PRN PRN Reason: for K+ 3.5 to 4.4 Potassium Chloride (Kcl 20 Meq Premix Inj) 20 meq in 100 mls @ 50 mls/hr IV.SIG Q2H PRN PRN Reason: for K+ 3.5 to 4.4 Last Admin: 10/03/17 07:36 Dose: 50 mls/hr Potassium Chloride (Kcl 20 Meq Premix Inj) 20 meq in 100 mls @ 50 mls/hr IV.SIG Q2H PRN PRN Reason: for Initial K+ ONLY < 3.5 Potassium Chloride (Kcl 40 Meq Premix Inj) 40 meq in 100 mls @ 100 mls/hr IV.SIG Q1H PRN PRN Reason: for Initial K+ ONLY < 3.5 Potassium Chloride (Kcl 40 Meq Premix Inj) 40 meq in 100 mls @ 50 mls/hr IV.SIG Q2H PRN PRN Reason: for Subsequent K+ < 3.5 Sodium Chloride (Ns Inj) 1,000 mls @ 250 mls/hr IV.CONT .Q4H [facility] Last Infusion: 10/03/17 08:11 Dose: 250 mls/hr Sodium Phosphate 15 mmol/ (Sodium Chloride) 105 mls @ 25 mls/hr IV.SIG UNSCH PRN PRN Reason: for Phosphate Level < 1.0 Potassium Chloride (Kcl 20 Meq Premix Inj) 20 meq in 100 mls @ 50 mls/hr IV.SIG Q2H PRN PRN Reason: for Subsequent K+ < 3.5 Sodium Bicarbonate 150 meq/ (Sterile Water) 1,000 mls @ 150 mls/hr IV.CONT .Q6H40M [facility] Last Admin: 10/03/17 09:18 Dose: 150 mls/hr Piperacillin/Tazobactam/Dextrose (Zosyn 2.25 Gm Premix) 50 mls @ 100 mls/hr IV.SIG Q6H [facility] Metronidazole/Sodium Chloride (Flagyl 500 Mg Inj) 100 mls @ 100 mls/hr IV.SIG Q8H [facility] Lactulose (Lactulose Liq) 30 ml PO DAILY PRN PRN Reason: SEVERE CONSITIPATION Ondansetron HCl (Zofran Inj) 4 mg IV.PUSH Q6H PRN PRN Reason: NAUSEA OR VOMITING Pantoprazole Sodium (Protonix Inj) 40 mg IV.PUSH DAILY [facility] Senna/Docusate Sodium (Steff-Colace) 1 tab PO BID [facility] Sennosides (Senokot) 17.2 mg PO Q12H PRN PRN Reason: Moderate Constipation Sodium Bicarbonate (Sodium Bicarbonate 8.4% Inj) 100 meq IV.PUSH UNSCH PRN PRN Reason: for pH less than 6.9 Sodium Bicarbonate (Sodium Bicarbonate 8.4% Inj) 50 meq IV.PUSH UNSCH PRN PRN Reason: for pH 6.9 to 7.0 Sodium Chloride (Ns Flush) 2 ml IV.FLUSH BID [facility] Sodium Chloride (Ns Flush) 2 ml IV.FLUSH PRN PRN PRN Reason: FLUSH AFTER USING IV ACCESS <Randa Cartwright M - Last Filed: 10/03/17 12:27> Active Medications: Active Medications Al Hydroxide/Mg Hydroxide (Milk Of Guerda Liq) 30 ml PO Q12H PRN PRN Reason: Mild Constipation Albuterol (Duoneb Neb (Prn)) 1 ampul NEB Q2HR NEB PRN PRN Reason: WHEEZING Bisacodyl (Dulcolax Supp) 10 mg RECTAL DAILY PRN PRN Reason: SEVERE CONSITIPATION Chlorhexidine Gluconate (Chlorhexidine 2% Cloth) 3 pack TOPICAL DAILY@0400 [facility] Stop: 10/09/17 03:59 Chlorhexidine Gluconate (Chlorhexidine 2% Cloth) 3 pack TOPICAL DAILY@0400 PRN PRN Reason: Extra cloth needed Stop: 10/09/17 03:59 Dextrose (D50w Vial) 50 ml IV.PUSH UNSCH PRN PRN Reason: PER HYPOGLYCEMIA PROTOCOL Enoxaparin Sodium (Lovenox Inj) 30 mg SQ Q24H [facility] Last Admin: 10/03/17 14:47 Dose: 30 mg Glucagon (Glucagon Inj) 1 mg OTHER PRN PRN PRN Reason: for Hypoglycemia Protocol Dextrose/Sodium Chloride (D5w/Normal Saline Inj) 1,000 mls @ 200 mls/hr IV.CONT .Q5H [facility] Last Infusion: 10/03/17 16:38 Dose: Infused Insulin Human Regular 100 unit (/ Sodium Chloride) 100 mls @ 5 mls/hr IV.CONT TITRATE PRN; Protocol PRN Reason: See protocol Potassium Chloride (Kcl 20 Meq Premix Inj) 20 meq in 100 mls @ 100 mls/hr IV.SIG Q1H PRN PRN Reason: for K+ 4.5 to 5 Last Admin: 10/03/17 09:29 Dose: 100 mls/hr Potassium Chloride (Kcl 20 Meq Premix Inj) 20 meq in 100 mls @ 50 mls/hr IV.SIG Q2H PRN PRN Reason: for K+ 4.5 to 5 Potassium Chloride (Kcl 20 Meq Premix Inj) 20 meq in 100 mls @ 100 mls/hr IV.SIG Q1H PRN PRN Reason: for K+ 3.5 to 4.4 Potassium Chloride (Kcl 20 Meq Premix Inj) 20 meq in 100 mls @ 50 mls/hr IV.SIG Q2H PRN PRN Reason: for K+ 3.5 to 4.4 Last Admin: 10/03/17 07:36 Dose: 50 mls/hr Potassium Chloride (Kcl 20 Meq Premix Inj) 20 meq in 100 mls @ 50 mls/hr IV.SIG Q2H PRN PRN Reason: for Initial K+ ONLY < 3.5 Potassium Chloride (Kcl 40 Meq Premix Inj) 40 meq in 100 mls @ 100 mls/hr IV.SIG Q1H PRN PRN Reason: for Initial K+ ONLY < 3.5 Potassium Chloride (Kcl 40 Meq Premix Inj) 40 meq in 100 mls @ 50 mls/hr IV.SIG Q2H PRN PRN Reason: for Subsequent K+ < 3.5 Sodium Chloride (Ns Inj) 1,000 mls @ 250 mls/hr IV.CONT .Q4H [facility] Last Infusion: 10/03/17 16:39 Dose: Infused Sodium Phosphate 15 mmol/ (Sodium Chloride) 105 mls @ 25 mls/hr IV.SIG UNSCH PRN PRN Reason: for Phosphate Level < 1.0 Potassium Chloride (Kcl 20 Meq Premix Inj) 20 meq in 100 mls @ 50 mls/hr IV.SIG Q2H PRN PRN Reason: for Subsequent K+ < 3.5 Piperacillin/Tazobactam/Dextrose (Zosyn 2.25 Gm Premix) 50 mls @ 100 mls/hr IV.SIG Q6H [facility] Last Admin: 10/03/17 14:47 Dose: 100 mls/hr Metronidazole/Sodium Chloride (Flagyl 500 Mg Inj) 100 mls @ 100 mls/hr IV.SIG Q8H [facility] Last Admin: 10/03/17 16:35 Dose: Not Given Dextrose/Sodium Chloride (D5w/1/2 Ns Inj) 1,000 mls @ 125 mls/hr IV.CONT .Q8H [facility] Last Admin: 10/03/17 16:43 Dose: 125 mls/hr Insulin Human Regular (Novolin R Correctional Sugar Inj) 0 units SQ ACHS [facility]; Protocol Lactulose (Lactulose Liq) 30 ml PO DAILY PRN PRN Reason: SEVERE CONSITIPATION Ondansetron HCl (Zofran Inj) 4 mg IV.PUSH Q6H PRN PRN Reason: NAUSEA OR VOMITING Last Admin: 10/03/17 16:15 Dose: 4 mg Pantoprazole Sodium (Protonix Inj) 40 mg IV.PUSH DAILY [facility] Last Admin: 10/03/17 16:35 Dose: Not Given Senna/Docusate Sodium (Steff-Colace) 1 tab PO BID [facility] Last Admin: 10/03/17 16:35 Dose: Not Given Sennosides (Senokot) 17.2 mg PO Q12H PRN PRN Reason: Moderate Constipation Sodium Bicarbonate (Sodium Bicarbonate 8.4% Inj) 100 meq IV.PUSH UNSCH PRN PRN Reason: for pH less than 6.9 Sodium Bicarbonate (Sodium Bicarbonate 8.4% Inj) 50 meq IV.PUSH UNSCH PRN PRN Reason: for pH 6.9 to 7.0 Sodium Chloride (Ns Flush) 2 ml IV.FLUSH BID [facility] Last Admin: 10/03/17 16:35 Dose: Not Given Sodium Chloride (Ns Flush) 2 ml IV.FLUSH PRN PRN PRN Reason: FLUSH AFTER USING IV ACCESS <Arely Chauhan - Last Filed: 10/03/17 16:52> Allergies Allergy/AdvReac Type Severity Reaction Status Date / Time No Known Allergies Allergy Unverified 10/03/17 05:02 Home Medications Medication Instructions Recorded Confirmed Type trazodone 50 mg PO HS PRN 10/03/17 10/03/17 History Exam Vital signs: Vital Signs 10/03/17 04:23 10/03/17 05:15 10/03/17 05:45 Temperature 97.6 F Pulse Rate 126 H 112 H Respiratory Rate 18 16 Blood Pressure 107/78 118/82 Pulse Oximetry 98 98 10/03/17 06:32 10/03/17 06:56 10/03/17 08:59 Temperature 98.4 F Pulse Rate 100 H 104 H 103 H Respiratory Rate 18 16 16 Blood Pressure 113/81 120/86 99/70 L Pulse Oximetry 97 98 10/03/17 09:31 Temperature Pulse Rate 100 H Respiratory Rate 16 Blood Pressure 91/65 L Pulse Oximetry 98 Intake & Output 10/02/17 10/03/17 10/03/17 18:59 06:59 18:59 Intake Total 2000 / 1999 200 / 200 Output Total 200 / 200 Balance 1800 / 1800 200 / 200 Weight 49.7 kg Intake: IV 1999 200 / 200 NS Inj 1,000 ML @ 250 mls/hr IV 200 / 200 .CONT .Q4H [facility] Rx#:[id number] NS Inj 1,000 ML @ Wide Open IV. 1999 SIG BOLUS ONE Rx#:[id number] Output: Emesis 200 / 200 Other: Date of Last Bowel Movement 10/03/17 # Emeses 1 - Constitutional mild distress (Slim body build) - Routine HEENT Exam Head: Present: normocephalic, atraumatic Eye: Present: EOMI ENT: Present: mucous membranes moist - Routine Neck Exam Present: supple - Routine Respiratory Exam Present: accessory muscle use (Even unlabored no noted respiratory distress male ) - Routine Cardiovascular Exam Present: RRR - Routine Abdominal Exam Present: soft (Round, some guarding to the right upper quadrant with some tenderness, denies any further abdominal pain) - Routine Skin Exam Present: intact - Routine Neurological Exam Present: alert, oriented X3 <Randa Cartwright M - Last Filed: 10/03/17 12:27> Vital signs: Vital Signs 10/03/17 04:23 10/03/17 05:15 10/03/17 05:45 Temperature 97.6 F Pulse Rate 126 H 112 H Respiratory Rate 18 16 Blood Pressure 107/78 118/82 Pulse Oximetry 98 98 10/03/17 06:32 10/03/17 06:56 10/03/17 08:59 Temperature 98.4 F Pulse Rate 100 H 104 H 103 H Respiratory Rate 18 16 16 Blood Pressure 113/81 120/86 99/70 L Pulse Oximetry 97 98 10/03/17 09:31 10/03/17 11:00 10/03/17 12:00 Temperature 98.5 F Pulse Rate 100 H 102 H 94 H Respiratory Rate 16 20 19 Blood Pressure 91/65 L 100/69 99/70 L Pulse Oximetry 98 100 98 10/03/17 13:00 10/03/17 14:00 10/03/17 15:00 Temperature Pulse Rate 101 H 92 H 108 H Respiratory Rate 20 18 23 Blood Pressure 103/75 99/68 L 103/70 Pulse Oximetry 100 99 98 10/03/17 16:00 Temperature 98.3 F Pulse Rate 97 H Respiratory Rate 20 Blood Pressure 99/63 L Pulse Oximetry 97 Intake & Output 10/02/17 10/03/17 10/03/17 18:59 06:59 18:59 Intake Total 1999 / 1999 2200 / 2200 Output Total 200 / 200 Balance 1800 / 1800 2200 / 2200 Weight 49.7 kg 56.2 kg Intake: IV 1999 2200 / 2200 D5W/Normal Saline Inj 1,000 ML 1000 / 1000 @ 200 mls/hr IV.CONT .Q5H [facility] Rx#:[id number] NS Inj 1,000 ML @ 250 mls/hr IV 1200 / 1200 .CONT .Q4H [facility] Rx#:[id number] NS Inj 1,000 ML @ Wide Open IV. 1999 / 1999 SIG BOLUS ONE Rx#:[id number] Output: Emesis 200 / 200 Other: Date of Last Bowel Movement 10/03/17 10/03/17 # Emeses 1 Weight On Admission 56.2 kg <Arely Chauhan - Last Filed: 10/03/17 16:52> Results - Labs CBC & Chem 7: 10/03/17 04:50 10/03/17 08:50 Labs: Laboratory Results - last 24 hr 10/03/17 10/03/17 10/03/17 04:50 04:50 04:50 CBC w Diff Auto diff final WBC 14.3 H RBC 4.19 Hgb 15.5 H Hct 44.8 MCV 107.0 H MCH 37.0 H MCHC 34.6 RDW 15.0 Plt Count 174 MPV 8.0 Neut % (Auto) 83.6 H Lymph % (Auto) 4.4 L Cass % (Auto) 11.8 H Eos % (Auto) 0.0 Baso % (Auto) 0.2 Neut # (Auto) 12.0 H Lymph # (Auto) 0.6 L Cass # (Auto) 1.7 H Eos # (Auto) 0.0 Baso # (Auto) 0.0 WBC Differential . Differential Comment . Puncture Site Patient Temperature O2 Saturation ABG pH ABG pCO2 ABG pO2 ABG HCO3 ABG O2 Content ABG Base Excess ABG Methemoglobin Saad Test Hemoglobin Carboxyhemoglobin O2 Delivery Device Inspired O2 Critical Value Sodium 130 L Potassium 3.9 Chloride 84 L Carbon Dioxide 9.5 L Anion Gap 37 H BUN 18 Creatinine 1.90 H Estimated GFR 29 L POC Glucose Random Glucose 268 H Lactic Acid 9.4 H* Calcium 9.6 Phosphorus Total Bilirubin 2.0 H AST 136 H ALT 95 H Alkaline Phosphatase 108 Total Creatine Kinase Total Protein 10.1 H Albumin 5.4 H Lipase 315 Beta HCG, Qual 10/03/17 10/03/17 10/03/17 04:50 07:17 07:25 CBC w Diff WBC RBC Hgb Hct MCV MCH MCHC RDW Plt Count MPV Neut % (Auto) Lymph % (Auto) Cass % (Auto) Eos % (Auto) Baso % (Auto) Neut # (Auto) Lymph # (Auto) Cass # (Auto) Eos # (Auto) Baso # (Auto) WBC Differential Differential Comment Puncture Site Left radial Patient Temperature 98.6 O2 Saturation 97 ABG pH 7.39 ABG pCO2 20 L* ABG pO2 119 ABG HCO3 12 L* ABG O2 Content 17.4 ABG Base Excess -12.5 L ABG Methemoglobin 1.1 Saad Test Present Hemoglobin 12.6 Carboxyhemoglobin 1.2 O2 Delivery Device Room air Inspired O2 21 Critical Value Yes Sodium Potassium Chloride Carbon Dioxide Anion Gap BUN Creatinine Estimated GFR POC Glucose 261 H Random Glucose Lactic Acid Calcium Phosphorus Total Bilirubin AST ALT Alkaline Phosphatase Total Creatine Kinase Total Protein Albumin Lipase Beta HCG, Qual Less than 1.00 10/03/17 10/03/17 10/03/17 08:04 08:50 09:23 CBC w Diff WBC RBC Hgb Hct MCV MCH MCHC RDW Plt Count MPV Neut % (Auto) Lymph % (Auto) Cass % (Auto) Eos % (Auto) Baso % (Auto) Neut # (Auto) Lymph # (Auto) Cass # (Auto) Eos # (Auto) Baso # (Auto) WBC Differential Differential Comment Puncture Site Patient Temperature O2 Saturation ABG pH ABG pCO2 ABG pO2 ABG HCO3 ABG O2 Content ABG Base Excess ABG Methemoglobin Saad Test Hemoglobin Carboxyhemoglobin O2 Delivery Device Inspired O2 Critical Value Sodium 138 Potassium 4.0 Chloride 100 D Carbon Dioxide 20.5 L D Anion Gap 18 H BUN 18 Creatinine 1.40 H Estimated GFR 41 L POC Glucose 170 H 178 H Random Glucose 154 H D Lactic Acid Calcium 7.5 L D Phosphorus 1.1 L Total Bilirubin AST ALT Alkaline Phosphatase Total Creatine Kinase 129 Total Protein Albumin Lipase Beta HCG, Qual - Imaging Impressions Abdomen/Pelvis CT 10/03/17 05:48 CONCLUSION: 1. Chronic inflammatory changes of the colon and terminal ileum, with evidence of more active inflammation involving the ascending and distal transverse colon. Given the chronic changes, recommend clinical correlation for inflammatory bowel disease such as ulcerative colitis. 2. Hepatic steatosis. <Randa Cartwright - Last Filed: 10/03/17 12:27> - Labs CBC & Chem 7: 10/03/17 04:50 10/03/17 13:15 Labs: Laboratory Results - last 24 hr 10/03/17 10/03/17 10/03/17 04:50 04:50 04:50 CBC w Diff Auto diff final WBC 14.3 H RBC 4.19 Hgb 15.5 H Hct 44.8 MCV 107.0 H MCH 37.0 H MCHC 34.6 RDW 15.0 Plt Count 174 MPV 8.0 Neut % (Auto) 83.6 H Lymph % (Auto) 4.4 L Cass % (Auto) 11.8 H Eos % (Auto) 0.0 Baso % (Auto) 0.2 Neut # (Auto) 12.0 H Lymph # (Auto) 0.6 L Cass # (Auto) 1.7 H Eos # (Auto) 0.0 Baso # (Auto) 0.0 WBC Differential . Differential Comment . Puncture Site Patient Temperature O2 Saturation ABG pH ABG pCO2 ABG pO2 ABG HCO3 ABG O2 Content ABG Base Excess ABG Methemoglobin Saad Test Hemoglobin Carboxyhemoglobin O2 Delivery Device Inspired O2 Critical Value Sodium 130 L Potassium 3.9 Chloride 84 L Carbon Dioxide 9.5 L Anion Gap 37 H BUN 18 Creatinine 1.90 H Estimated GFR 29 L POC Glucose Random Glucose 268 H Lactic Acid 9.4 H* Calcium 9.6 Prot Corrected Calcium Phosphorus Magnesium Total Bilirubin 2.0 H AST 136 H ALT 95 H Alkaline Phosphatase 108 Total Creatine Kinase Total Protein 10.1 H Albumin 5.4 H Lipase 315 Beta HCG, Qual Urine Color Urine Clarity Urine pH Ur Specific Grace Urine Protein Urine Glucose (UA) Urine Ketones Urine Occult Blood Urine Nitrate Urine Bilirubin Urine Urobilinogen Ur Leukocyte Esterase Urine RBC Urine WBC Ur Squamous Epith Cells Urine Bacteria Hyaline Casts Micro UA Comment Urine Culture Comments 10/03/17 10/03/17 10/03/17 04:50 07:17 07:25 CBC w Diff WBC RBC Hgb Hct MCV MCH MCHC RDW Plt Count MPV Neut % (Auto) Lymph % (Auto) Cass % (Auto) Eos % (Auto) Baso % (Auto) Neut # (Auto) Lymph # (Auto) Cass # (Auto) Eos # (Auto) Baso # (Auto) WBC Differential Differential Comment Puncture Site Left radial Patient Temperature 98.6 O2 Saturation 97 ABG pH 7.39 ABG pCO2 20 L* ABG pO2 119 ABG HCO3 12 L* ABG O2 Content 17.4 ABG Base Excess -12.5 L ABG Methemoglobin 1.1 Saad Test Present Hemoglobin 12.6 Carboxyhemoglobin 1.2 O2 Delivery Device Room air Inspired O2 21 Critical Value Yes Sodium Potassium Chloride Carbon Dioxide Anion Gap BUN Creatinine Estimated GFR POC Glucose 261 H Random Glucose Lactic Acid Calcium Prot Corrected Calcium Phosphorus Magnesium Total Bilirubin AST ALT Alkaline Phosphatase Total Creatine Kinase Total Protein Albumin Lipase Beta HCG, Qual Less than 1.00 Urine Color Urine Clarity Urine pH Ur Specific Grace Urine Protein Urine Glucose (UA) Urine Ketones Urine Occult Blood Urine Nitrate Urine Bilirubin Urine Urobilinogen Ur Leukocyte Esterase Urine RBC Urine WBC Ur Squamous Epith Cells Urine Bacteria Hyaline Casts Micro UA Comment Urine Culture Comments 10/03/17 10/03/17 10/03/17 08:04 08:50 09:23 CBC w Diff WBC RBC Hgb Hct MCV MCH MCHC RDW Plt Count MPV Neut % (Auto) Lymph % (Auto) Cass % (Auto) Eos % (Auto) Baso % (Auto) Neut # (Auto) Lymph # (Auto) Cass # (Auto) Eos # (Auto) Baso # (Auto) WBC Differential Differential Comment Puncture Site Patient Temperature O2 Saturation ABG pH ABG pCO2 ABG pO2 ABG HCO3 ABG O2 Content ABG Base Excess ABG Methemoglobin Saad Test Hemoglobin Carboxyhemoglobin O2 Delivery Device Inspired O2 Critical Value Sodium 138 Potassium 4.0 Chloride 100 D Carbon Dioxide 20.5 L D Anion Gap 18 H BUN 18 Creatinine 1.40 H Estimated GFR 41 L POC Glucose 170 H 178 H Random Glucose 154 H D Lactic Acid Calcium 7.5 L D Prot Corrected Calcium Phosphorus 1.1 L Magnesium Total Bilirubin AST ALT Alkaline Phosphatase Total Creatine Kinase 129 Total Protein Albumin Lipase Beta HCG, Qual Urine Color Urine Clarity Urine pH Ur Specific Grace Urine Protein Urine Glucose (UA) Urine Ketones Urine Occult Blood Urine Nitrate Urine Bilirubin Urine Urobilinogen Ur Leukocyte Esterase Urine RBC Urine WBC Ur Squamous Epith Cells Urine Bacteria Hyaline Casts Micro UA Comment Urine Culture Comments 10/03/17 10/03/17 10/03/17 13:15 13:15 13:25 CBC w Diff WBC RBC Hgb Hct MCV MCH MCHC RDW Plt Count MPV Neut % (Auto) Lymph % (Auto) Cass % (Auto) Eos % (Auto) Baso % (Auto) Neut # (Auto) Lymph # (Auto) Cass # (Auto) Eos # (Auto) Baso # (Auto) WBC Differential Differential Comment Puncture Site Patient Temperature O2 Saturation ABG pH ABG pCO2 ABG pO2 ABG HCO3 ABG O2 Content ABG Base Excess ABG Methemoglobin Saad Test Hemoglobin Carboxyhemoglobin O2 Delivery Device Inspired O2 Critical Value Sodium 139 Potassium 4.4 Chloride 100 Carbon Dioxide 25.6 Anion Gap 13 BUN 21 H Creatinine 1.20 H Estimated GFR 49 L POC Glucose Random Glucose 144 H Lactic Acid 1.8 Calcium 7.4 L* Prot Corrected Calcium 7.5 L Phosphorus Magnesium 1.1 L Total Bilirubin 1.7 H AST 83 H ALT 56 H Alkaline Phosphatase 68 Total Creatine Kinase Total Protein 7.0 D Albumin 3.8 D Lipase Beta HCG, Qual Urine Color Yellow Urine Clarity Hazy H Urine pH 5.0 Ur Specific Grace 1.022 Urine Protein 500 or greater Urine Glucose (UA) 150 H Urine Ketones 80 or greater Urine Occult Blood Small H Urine Nitrate Negative Urine Bilirubin Negative Urine Urobilinogen 4 or greater Ur Leukocyte Esterase Negative Urine RBC 1 Urine WBC 3 Ur Squamous Epith Cells 9 Urine Bacteria Rare H Hyaline Casts 22 Micro UA Comment Culture not ind Urine Culture Comments Culture not ind 10/03/17 14:36 CBC w Diff WBC RBC Hgb Hct MCV MCH MCHC RDW Plt Count MPV Neut % (Auto) Lymph % (Auto) Cass % (Auto) Eos % (Auto) Baso % (Auto) Neut # (Auto) Lymph # (Auto) Cass # (Auto) Eos # (Auto) Baso # (Auto) WBC Differential Differential Comment Puncture Site Patient Temperature O2 Saturation ABG pH ABG pCO2 ABG pO2 ABG HCO3 ABG O2 Content ABG Base Excess ABG Methemoglobin Saad Test Hemoglobin Carboxyhemoglobin O2 Delivery Device Inspired O2 Critical Value Sodium Potassium Chloride Carbon Dioxide Anion Gap BUN Creatinine Estimated GFR POC Glucose 135 H Random Glucose Lactic Acid Calcium Prot Corrected Calcium Phosphorus Magnesium Total Bilirubin AST ALT Alkaline Phosphatase Total Creatine Kinase Total Protein Albumin Lipase Beta HCG, Qual Urine Color Urine Clarity Urine pH Ur Specific Grace Urine Protein Urine Glucose (UA) Urine Ketones Urine Occult Blood Urine Nitrate Urine Bilirubin Urine Urobilinogen Ur Leukocyte Esterase Urine RBC Urine WBC Ur Squamous Epith Cells Urine Bacteria Hyaline Casts Micro UA Comment Urine Culture Comments - Imaging Impressions Abdomen/Pelvis CT 10/03/17 05:48 CONCLUSION: 1. Chronic inflammatory changes of the colon and terminal ileum, with evidence of more active inflammation involving the ascending and distal transverse colon. Given the chronic changes, recommend clinical correlation for inflammatory bowel disease such as ulcerative colitis. 2. Hepatic steatosis. <Arely Chauhan - Last Filed: 10/03/17 16:52> Assessment and Plan (1) Alcoholic hepatitis Status: Acute Code(s): K70.10 - Alcoholic hepatitis without ascites (2) Terminal ileitis Status: Acute Code(s): K50.00 - Crohn's disease of small intestine without complications (3) Acidosis, lactic Status: Acute Code(s): E87.2 - Acidosis - Plan Alcoholic hepatitis EtOH abuse long-term but had restarted drinking due to stressors approximately 5 months ago. Has been told that she was borderline hepatic cirrhosis 1 year ago. Transaminitis and hyperbilirubinemia secondary to her alcoholic hepatitis. Nausea vomiting right upper quadrant pain approximately 4 days before admission. Since receiving IV fluids patient's nausea and vomiting has resided but still having right upper quadrant discomfort and soreness to light palpation. Possible irritable bowel syndrome versus colitis. Abnormal CT scan on admission did show chronic inflammatory changes of the colon and terminal ileum with evidence of more active inflammation involving the descending and distal transverse colon given the chronic changes recommended clinical coordination for inflammatory bowel disease such as ulcerative colitis. Hepatic steatosis per CT. Currently patient is being monitored in the intensive care setting with elevated lactic acid level as well as abnormal labs. No family history of colon cancer and no previous EGD and colonoscopy Plan Diet per attending recommend clear liquids for now Monitor labs with special attention to hemoglobin and liver enzymes Stool studies , C. difficile and WBC count pathology, ova and parasite Monitor patient's symptoms of abdominal pain for any acute changes Once patient stabilizes over the next few days consider colonoscopy for Friday PPI Anti-medics Bowel regimen as needed Further recommendations to follow Patient is seen per myself and Dr. Chauhan, note was written on his behalf <Randa Cartwright - Last Filed: 10/03/17 12:27> (1) Alcoholic hepatitis Status: Acute Code(s): K70.10 - Alcoholic hepatitis without ascites (2) Terminal ileitis Status: Acute Code(s): K50.00 - Crohn's disease of small intestine without complications (3) Acidosis, lactic Status: Acute Code(s): E87.2 - Acidosis - Plan Seen and examined with SPEECH LANGUAGE THERAPIST, no bleeding, no previous h/o colitis. Suspect infectious colitis, possible IBD. Stool studies, antibiotics. Colonoscopy planned for friday once more stable - Attending Attestation The exam, history, and the medical decision-making described in the above note were completed with the assistance of the mid-level provider. I reviewed and agree with the findings presented. I attest that I had a [id number] encounter with the patient on the same day, and personally performed and documented my assessment and findings in the medical record. <Arely Chauhan - Last Filed: 10/03/17 16:52>
[2017-10-03 13:57] LABS: Albumin 3.8 g/dL (3.4-5.0); Calcium 7.4 mg/dL (8.5-10.1); Carbon Dioxide 25.6 meq/L (21.0-32.0); Magnesium 1.1 mg/dL (1.5-2.5); Potassium 4.4 meq/L (3.5-5.1)
[2017-10-03] MEDS: Piperacil/Tazo 2.25 GM Premix 50 ML IV.SIG SCH ×2 (14:47→22:14)
[2017-10-03] MEDS: Enoxaparin Inj 30 MG/0.3 ML Syringe SQ SCH (14:47)
--- NOTE | 2017-10-03 15:05 | P.HPCC ---
History of Present Illness Service: critical care Primary Care Physician: Michael Carter MD Chief Complaint: nausea/ vomiting/ abdominal pain History of Present Illness: 42-year-old female with a medical history significant for alcohol abuse and alcohol induced liver disease who presented to the ER with history of nausea vomiting and right-sided abdominal pain going on for about 4 days. She tells me that she has 2 drinks of vodka daily having recently resumed. She has previously been told that she has alcohol induced liver disease by her primary care physician Dr. Carter. Patient was evaluated in the ER at [place] and was noted to have a severe metabolic acidosis with lactic acid level of 9. CT abdomen pelvis revealed inflammatory changes involving ileocolic junction as well as ascending and transverse colon. Patient was accepted for admission by critical care medicine service and transferred to [facility] where I evaluated her following her arrival. She was given 2 L fluid bolus and given empiric Zosyn after [place] cultures [place]. I placed patient on a bicarb drip due to severe metabolic acidosis. She had been initiated on insulin drip for DKA protocol though I doubt this is DKA. She does not have a history of diabetes mellitus. Inpatient Certification: I certify that the inpatient services were ordered in accordance with Medicare regulations governing the order. This includes certification that hospital inpatient services are reasonable and necessary and in the case of services not specified as inpatient-only under 42 CFR 419.22(n), that they are appropriately provided as inpatient services in accordance to with the 2-midnight benchmark under 43 CFR 412.3(e) Estimated Total Length of Stay (Days): 5 Plans for Post Hospital Care: Not yet determined Review of Systems All other systems reviewed negative except as stated in [facility] - History History Provided By: Patient - Medical History Medical History: Medical History (Last Updated 10/03/17 @ 05:11 by Mihaela Ellis RN) Cirrhosis Tubal occlusion Alcohol abuse - Surgical History Surgical History: Surgical History (Last Updated 10/03/17 @ 05:11 by Mihaela Ellis RN) Hx of laparoscopy - Tobacco History Second Hand Smoke Exposure: No Tobacco Use In Past 30 Days: Yes (QUIT 2 WEEKS AGO) Smoking Status: Former smoker - Alcohol History How Often Do You Have a Drink Containing Alcohol: 4 or more times a week - Substance Use History Substance History: No History of Abuse - Travel History Recent Travel in the [facility] Within the Last 8 Weeks: No Recent Travel Out of the Country Within the Last 8 Weeks: No - Immunization History Tetanus Immunization: >5 Years Hx Influenza Vaccine This Season: No Medications and Allergies Active Medications: Active Medications Al Hydroxide/Mg Hydroxide (Milk Of Guerda Whalen) 30 ml PO Q12H PRN PRN Reason: Mild Constipation Albuterol (Duoneb Neb (Prn)) 1 ampul NEB Q2HR NEB PRN PRN Reason: WHEEZING Bisacodyl (Dulcolax Supp) 10 mg RECTAL DAILY PRN PRN Reason: SEVERE CONSITIPATION Chlorhexidine Gluconate (Chlorhexidine 2% Cloth) 3 pack TOPICAL DAILY@0400 CARLOS Stop: 10/09/17 03:59 Chlorhexidine Gluconate (Chlorhexidine 2% Cloth) 3 pack TOPICAL DAILY@0400 PRN PRN Reason: Extra cloth needed Stop: 10/09/17 03:59 Chlorhexidine Gluconate (Chlorhexidine 2% Cloth) 3 pack TOPICAL DAILY@0400 CARLOS Stop: 10/09/17 03:59 Chlorhexidine Gluconate (Chlorhexidine 2% Cloth) 3 pack TOPICAL DAILY@0400 PRN PRN Reason: Extra cloth needed Stop: 10/09/17 03:59 Enoxaparin Sodium (Lovenox Inj) 30 mg SQ Q24H [facility] Dextrose/Sodium Chloride (D5w/Normal Saline Inj) 1,000 mls @ 200 mls/hr IV.CONT .Q5H CARLOS Last Admin: 10/03/17 08:11 Dose: 200 mls/hr Insulin Human Regular 100 unit (/ Sodium Chloride) 100 mls @ 5 mls/hr IV.CONT TITRATE PRN; Protocol PRN Reason: See protocol Potassium Chloride (Kcl 20 Meq Premix Inj) 20 meq in 100 mls @ 100 mls/hr IV.SIG Q1H PRN PRN Reason: for K+ 4.5 to 5 Last Admin: 10/03/17 09:29 Dose: 100 mls/hr Potassium Chloride (Kcl 20 Meq Premix Inj) 20 meq in 100 mls @ 50 mls/hr IV.SIG Q2H PRN PRN Reason: for K+ 4.5 to 5 Potassium Chloride (Kcl 20 Meq Premix Inj) 20 meq in 100 mls @ 100 mls/hr IV.SIG Q1H PRN PRN Reason: for K+ 3.5 to 4.4 Potassium Chloride (Kcl 20 Meq Premix Inj) 20 meq in 100 mls @ 50 mls/hr IV.SIG Q2H PRN PRN Reason: for K+ 3.5 to 4.4 Last Admin: 10/03/17 07:36 Dose: 50 mls/hr Potassium Chloride (Kcl 20 Meq Premix Inj) 20 meq in 100 mls @ 50 mls/hr IV.SIG Q2H PRN PRN Reason: for Initial K+ ONLY < 3.5 Potassium Chloride (Kcl 40 Meq Premix Inj) 40 meq in 100 mls @ 100 mls/hr IV.SIG Q1H PRN PRN Reason: for Initial K+ ONLY < 3.5 Potassium Chloride (Kcl 40 Meq Premix Inj) 40 meq in 100 mls @ 50 mls/hr IV.SIG Q2H PRN PRN Reason: for Subsequent K+ < 3.5 Sodium Chloride (Ns Inj) 1,000 mls @ 250 mls/hr IV.CONT .Q4H CARLOS Last Infusion: 10/03/17 08:11 Dose: 250 mls/hr Sodium Phosphate 15 mmol/ (Sodium Chloride) 105 mls @ 25 mls/hr IV.SIG UNSCH PRN PRN Reason: for Phosphate Level < 1.0 Potassium Chloride (Kcl 20 Meq Premix Inj) 20 meq in 100 mls @ 50 mls/hr IV.SIG Q2H PRN PRN Reason: for Subsequent K+ < 3.5 Sodium Bicarbonate 150 meq/ (Sterile Water) 1,000 mls @ 150 mls/hr IV.CONT .Q6H40M CARLOS Last Admin: 10/03/17 09:18 Dose: 150 mls/hr Piperacillin/Tazobactam/Dextrose (Zosyn 2.25 Gm Premix) 50 mls @ 100 mls/hr IV.SIG Q6H CARLOS Metronidazole/Sodium Chloride (Flagyl 500 Mg Inj) 100 mls @ 100 mls/hr IV.SIG Q8H CARLOS Lactulose (Lactulose Liq) 30 ml PO DAILY PRN PRN Reason: SEVERE CONSITIPATION Ondansetron HCl (Zofran Inj) 4 mg IV.PUSH Q6H PRN PRN Reason: NAUSEA OR VOMITING Pantoprazole Sodium (Protonix Inj) 40 mg IV.PUSH DAILY CARLOS Senna/Docusate Sodium (Steff-Colace) 1 tab PO BID CARLOS Sennosides (Senokot) 17.2 mg PO Q12H PRN PRN Reason: Moderate Constipation Sodium Bicarbonate (Sodium Bicarbonate 8.4% Inj) 100 meq IV.PUSH UNSCH PRN PRN Reason: for pH less than 6.9 Sodium Bicarbonate (Sodium Bicarbonate 8.4% Inj) 50 meq IV.PUSH UNSCH PRN PRN Reason: for pH 6.9 to 7.0 Sodium Chloride (Ns Flush) 2 ml IV.FLUSH BID CARLOS Sodium Chloride (Ns Flush) 2 ml IV.FLUSH PRN PRN PRN Reason: FLUSH AFTER USING IV ACCESS Allergies Allergy/AdvReac Type Severity Reaction Status Date / Time No Known Allergies Allergy Unverified 10/03/17 05:02 Home Medications Medication Instructions Recorded Confirmed Type trazodone 50 mg PO HS PRN 10/03/17 10/03/17 History Results - Labs CBC & Chem 7: 10/03/17 04:50 10/03/17 13:15 Labs: Short CBC 10/03/17 Range/Units 04:50 WBC 14.3 H (4.0-11.0) th/mm3 Hgb 15.5 H (11.6-15.3) gm/dL Hct 44.8 (35.0-46.0) % Plt Count 174 (150-450) th/mm3 BMP 10/03/17 10/03/17 10/03/17 04:50 08:50 13:15 Sodium 130 L 138 139 Potassium 3.9 4.0 4.4 Chloride 84 L 100 D 100 Carbon Dioxide 9.5 L 20.5 L D 25.6 BUN 18 18 21 H Creatinine 1.90 H 1.40 H 1.20 H Calcium 9.6 7.5 L D 7.4 L* Cardiac Enzymes 10/03/17 Range/Units 08:50 Total Creatine Kinase 129 (26-192) U/L Liver Function 10/03/17 10/03/17 Range/Units 04:50 13:15 Total Bilirubin 2.0 H 1.7 H (0.2-1.0) mg/dL AST 136 H 83 H (15-37) U/L ALT 95 H 56 H (10-53) U/L Alkaline Phosphatase 108 68 (45-117) U/L Albumin 5.4 H 3.8 D (3.4-5.0) g/dL - Imaging Impressions Abdomen/Pelvis CT 10/03/17 05:48 CONCLUSION: 1. Chronic inflammatory changes of the colon and terminal ileum, with evidence of more active inflammation involving the ascending and distal transverse colon. Given the chronic changes, recommend clinical correlation for inflammatory bowel disease such as ulcerative colitis. 2. Hepatic steatosis. Exam Vital signs: Vital Signs 10/03/17 04:23 10/03/17 05:15 10/03/17 05:45 Temperature 97.6 F Pulse Rate 126 H 112 H Respiratory Rate 18 16 Blood Pressure 107/78 118/82 Pulse Oximetry 98 98 10/03/17 06:32 10/03/17 06:56 10/03/17 08:59 Temperature 98.4 F Pulse Rate 100 H 104 H 103 H Respiratory Rate 18 16 16 Blood Pressure 113/81 120/86 99/70 L Pulse Oximetry 97 98 10/03/17 09:31 10/03/17 11:00 10/03/17 12:00 Temperature 98.5 F Pulse Rate 100 H 102 H 94 H Respiratory Rate 16 20 19 Blood Pressure 91/65 L 100/69 99/70 L Pulse Oximetry 98 100 98 10/03/17 13:00 10/03/17 14:00 Temperature Pulse Rate 101 H 92 H Respiratory Rate 20 18 Blood Pressure 103/75 99/68 L Pulse Oximetry 100 99 Intake & Output 10/02/17 10/03/17 10/03/17 18:59 06:59 18:59 Intake Total 1999 200 / 200 Output Total 200 / 200 Balance 1800 / 1800 200 / 200 Weight 49.7 kg Intake: IV 1999 200 / 200 NS Inj 1,000 ML @ 250 mls/hr IV 200 / 200 .CONT .Q4H CARLOS Rx#:[id number] NS Inj 1,000 ML @ Wide Open IV. 1999 SIG BOLUS ONE Rx#:[id number] Output: Emesis 200 / 200 Other: Date of Last Bowel Movement 10/03/17 # Emeses 1 Narrative: HEENT/Neuro: No pallor or icterus, tongue moist, DORA, Awake alert oriented 3 , nonfocal grossly, moving all 4 extremities Neck: No JVD Chest/pulmonary: CTA bilaterally Cardiovascular: S1-S2 regular no gallop or murmur GI/abdomen: Soft, vague tenderness in right upper abdomen, no guarding, bowel sounds present. No organomegaly appreciated Extremities: Warm bilaterally, no edema Caprini VTE Risk Assessment Caprini VTE Risk Assessment: Moderate/High Risk (score >= 2) Caprini Risk Assessment Model: Point Value = 1 Point Value = 2 Point Value = 3 Point Value = 5 Age 41-60 Minor surgery BMI > 25 kg/m2 Swollen legs Varicose veins or History of unexplained or recurrent spontaneous Oral contraceptives or hormone replacement Sepsis (< 1 month) Serious lung disease, including pneumonia (< 1 month) Abnormal pulmonary function Acute myocardial infarction Congestive heart failure (< 1 month) History of inflammatory bowel disease Medical patient at bed rest Age 61-74 Arthroscopic surgery Major open surgery (> 45 min) Laparoscopic surgery (> 45 min) Malignancy Confined to bed (> 72 hours) Immobilizing plaster cast Central venous access Age >= 75 History of VTE Family history of VTE Factor V Leiden Prothrombin [id number] Lupus anticoagulant Anticardiolipin antibodies Elevated serum homocysteine Heparin-induced thrombocytopenia Other congenital or acquired thrombophilia Stroke (< 1 month) Elective arthroplasty Hip, pelvis, or leg fracture Acute spinal cord injury (< 1 month) Prophylaxis Regimen: Total Risk Factor Score Risk Level Prophylaxis Regimen 0-1 Low Early ambulation 2 Moderate Order ONE of the following: *Sequential Compression Device (SCD) *Heparin 5000 units SQ BID 3-4 Higher Order ONE of the following medications: *Heparin 5000 units SQ TID *Enoxaparin/Lovenox 40 mg SQ daily (WT < 150 kg, CrCl > 30 mL/min) *Enoxaparin/Lovenox 30 mg SQ daily (WT < 150 kg, CrCl > 10-29 mL/min) *Enoxaparin/Lovenox 30 mg SQ BID (WT < 150 kg, CrCl > 30 mL/min) AND/OR *Sequential Compression Device (SCD) 5 or more Highest Order ONE of the following medications: *Heparin 5000 units SQ TID (Preferred with Epidurals) *Enoxaparin/Lovenox 40 mg SQ daily (WT < 150 kg, CrCl > 30 mL/min) *Enoxaparin/Lovenox 30 mg SQ daily (WT < 150 kg, CrCl > 10-29 mL/min) *Enoxaparin/Lovenox 30 mg SQ BID (WT < 150 kg, CrCl > 30 mL/min) AND *Sequential Compression Device (SCD) Assessment and Plan - Assessment and Plan Plan: 42-year-old female with: Abdominal pain Lactic acidosis Colitis on CT Hyperglycemia MAN Leukocytosis Alcohol abuse Elevated LFTs with alcohol induced liver disease Dehydration Plan: Neuro: Follow neuro status. Watch for alcohol withdrawal. Cardiovascular: Aggressive IV hydration. Watch for hypotension. Pulmonary: Supplemental O2 as needed. Currently on room air. GI/liver: Suspect IBD versus other etiology for colitis. GI consult requested for further evaluation. Patient may need colonoscopy. Continue IV fluids, empiric antibiotic coverage with Zosyn. Advance p.o. diet when okay with GI. Renal/: IV hydration, strict intake output, monitor and replete electrolytes, follow BUN/creatinine. ID: Blood cultures obtained. Empiric Zosyn. Heme: Follow CBC Endocrine: Patient was started on insulin drip per DKA protocol by ER. Doubt DKA. Will discontinue insulin drip. Sliding scale insulin for glycemic control. Prophylaxis: PPI/SCDs/Lovenox. Time spent on critical care excluding procedures 45 minutes
[2017-10-03] MEDS ORDERED: DC Insulin drip 2 hrs post basal insulin dose OTHER ONE (15:15)
[2017-10-03] MEDS ORDERED: DC previous DKA orders (HMC 1917) OTHER ONE (15:15)
[2017-10-03] MEDS ORDERED: Dextrose 50% in Water 50 ML Vial IV.PUSH PRN (15:15)
[2017-10-03 15:39] LABS: Bacteria,Urine Rare /hpf; Bilirubin,Urine Negative (Negative); Clarity,Urine Hazy (Clear); Color,Urine Yellow (Yellw/Straw); Glucose,Urine (UA) 150 mg/dL (Negative); Hyaline Casts,Urine 22 /lpf (0-3); Leukocyte Esterase,Urine Negative (Negative); Nitrite,Urine Negative (Negative); Specific Gravity,Urine 1.022 (1.002-1.035); Squamous Epithelial Cell,Urine 9 /hpf (0-5); Urobilinogen,Urine 4 or Greater mg/dL (Less than 2)
[2017-10-03] MEDS: Pantoprazole Inj 40 MG Vial IV.PUSH SCH (16:35)
[2017-10-03] MEDS: Senna/Docusate Sodium 8.6/50 MG Tablet PO SCH ×2 (16:35→22:17)
[2017-10-03] MEDS: Dextrose 5%/NaCl 0.45% Inj 1,000 ML IV.CONT SCH ×2 (16:43→23:41)
[2017-10-03] MEDS: Insulin NovoLIN Regular Correctional Sugar Inj SQ SCH ×2 (21:36→22:16)
[2017-10-03 22:21] LABS: Hemoglobin A1c 4.2 % (4.3-6.0)
[2017-10-04 01:44] LABS: Calcium 7.4 mg/dL (8.5-10.1); Carbon Dioxide 28.4 meq/L (21.0-32.0); Potassium 3.6 meq/L (3.5-5.1)
[2017-10-04 01:56] LABS: Total Protein 6.9 g/dL (6.4-8.2)
[2017-10-04] MEDS: Piperacil/Tazo 2.25 GM Premix 50 ML IV.SIG SCH ×4 (02:00→20:02)
[2017-10-04] MEDS: Sod Chloride 0.9% Inj 1,000 ML IV.CONT SCH ×5 (03:00→19:33)
[2017-10-04] MEDS ORDERED: Chlorhexidine Gluconate 2% 1 Pack (2 Cloths) TOPICAL SCH ×2 (04:00)
[2017-10-04] MEDS ORDERED: Chlorhexidine Gluconate 2% 1 Pack (2 Cloths) TOPICAL PRN ×3 (04:00)
[2017-10-04] MEDS: Chlorhexidine Gluconate 2% 1 Pack (2 Cloths) TOPICAL SCH (04:15)
[2017-10-04] MEDS: Dextrose 5%/NaCl 0.9% Inj 1,000 ML IV.CONT SCH ×2 (04:15→09:45)
[2017-10-04 06:33] LABS: Calcium 7.8 mg/dL (8.5-10.1); Carbon Dioxide 26.6 meq/L (21.0-32.0); Potassium 3.1 meq/L (3.5-5.1)
[2017-10-04 06:39] LABS: Albumin 3.7 g/dL (3.4-5.0); Anion Gap 13 meq/L (5-15); Aspartate Aminotransferase 66 U/L (15-37); Blood Urea Nitrogen 16 mg/dL (7-18); Calcium 7.7 mg/dL (8.5-10.1); Carbon Dioxide 26.7 meq/L (21.0-32.0); Chloride 95 meq/L (98-107); Glomerular Filtration Rate 63 mL/min (>89); Glucose,Random 108 mg/dL (74-106); Magnesium 1.2 mg/dL (1.5-2.5); Potassium 3.1 meq/L (3.5-5.1); Sodium 135 meq/L (136-145)
[2017-10-04 06:40] LABS: Alanine Aminotransferase 47 U/L (10-53); Phosphorus 0.5 mg/dL (2.5-4.9)
[2017-10-04 06:42] LABS: Alkaline Phosphatase 62 U/L (45-117); Total Protein 6.9 g/dL (6.4-8.2)
[2017-10-04] MEDS ORDERED: Magnesium Sulfate Inj 2 GM in Sodium Chlor 0.9% Inj 96 ML IV.SIG STA (07:04)
[2017-10-04] MEDS ORDERED: Haloperidol Inj 5 MG/ML Ampul IV.PUSH PRN (07:05)
[2017-10-04] MEDS ORDERED: LORazepam 1 MG Tablet PO PRN (07:05)
[2017-10-04] MEDS ORDERED: ALPRAZolam 0.5 MG Tablet PO STA (07:10)
--- NOTE | 2017-10-04 07:21 | P.PNCC ---
Subjective Subjective Remarks/Hospital Course: 10/03: 42-year-old female with a medical history significant for alcohol abuse and alcohol induced liver disease who presented to the ER with history of nausea vomiting and right-sided abdominal pain going on for about 4 days. She tells me that she has 2 drinks of vodka daily having recently resumed. She has previously been told that she has alcohol induced liver disease by her primary care physician Dr. Carter. Patient was evaluated in the ER at [place] and was noted to have a severe metabolic acidosis with lactic acid level of 9. CT abdomen pelvis revealed inflammatory changes involving ileocolic junction as well as ascending and transverse colon. Patient was accepted for admission by critical care medicine service and transferred to [facility] where I evaluated her following her arrival. She was given 2 L fluid bolus and given empiric Zosyn after obtaining cultures at [place]. I placed patient on a bicarb drip due to severe metabolic acidosis. She had been initiated on insulin drip for DKA protocol though I doubt this is DKA. She does not have a history of diabetes mellitus. 10/04: Feeling anxious this morning. Did not sleep all night. She denies ever having alcohol withdrawal. And diarrhea. Minimal abdominal pain. Did have one episode of vomiting last night. Has been off insulin drip since yesterday morning. HbA1c not elevated so do not feel patient has diabetes mellitus. Awaiting GI workup for colitis. Objective Vital Signs / I&O: Vital Signs 10/03/17 08:59 10/03/17 09:31 10/03/17 11:00 Temperature 98.5 F Pulse Rate 103 H 100 H 102 H Respiratory Rate 16 16 20 Blood Pressure 99/70 L 91/65 L 100/69 Pulse Oximetry 98 98 100 10/03/17 12:00 10/03/17 13:00 10/03/17 14:00 Temperature Pulse Rate 94 H 101 H 92 H Respiratory Rate 19 20 18 Blood Pressure 99/70 L 103/75 99/68 L Pulse Oximetry 98 100 99 10/03/17 15:00 10/03/17 16:00 10/03/17 20:00 Temperature 98.3 F Pulse Rate 108 H 97 H 111 H Respiratory Rate 23 20 Blood Pressure 103/70 99/63 L Pulse Oximetry 98 97 99 10/04/17 01:00 10/04/17 02:00 10/04/17 03:00 Temperature Pulse Rate 125 H 65 67 Respiratory Rate 23 15 23 Blood Pressure 106/74 109/78 115/84 Pulse Oximetry 99 99 99 10/04/17 04:00 10/04/17 05:00 10/04/17 06:00 Temperature 98.6 F Pulse Rate 94 H 70 70 Respiratory Rate 14 15 25 H Blood Pressure 110/79 105/76 102/77 Pulse Oximetry 99 99 99 Intake & Output 10/03/17 10/04/17 10/04/17 18:59 06:59 18:59 Intake Total 2350 / 2350 1290 / 1290 Balance 2350 / 2350 1290 / 1290 Weight 56.2 kg Intake: IV 2350 / 2350 1050 / 1050 D5W/1/2 NS Inj 1,000 ML @ 125 1000 / 1000 mls/hr IV.CONT .Q8H CARLOS Rx#: [id number] D5W/Normal Saline Inj 1,000 ML 1000 / 1000 @ 200 mls/hr IV.CONT .Q5H CARLOS Rx#:[id number] NS Inj 1,000 ML @ 250 mls/hr IV 1200 / 1200 .CONT .Q4H CARLOS Rx#:[id number] Zosyn 2.25 GM Premix 50 ML @ 50 / 50 50 / 50 100 mls/hr IV.SIG Q6H CARLOS Rx#: [id number] Flagyl 500 MG Inj 100 ML @ 100 100 / 100 mls/hr IV.SIG Q8H CARLOS Rx#: [id number] Oral 240 / 240 Other: # Voids 3 Date of Last Bowel Movement 10/03/17 Weight On Admission 56.2 kg Result Diagrams: 10/03/17 04:50 10/04/17 05:10 Imaging: Abdomen/Pelvis CT 10/03/17 05:48 CONCLUSION: 1. Chronic inflammatory changes of the colon and terminal ileum, with evidence of more active inflammation involving the ascending and distal transverse colon. Given the chronic changes, recommend clinical correlation for inflammatory bowel disease such as ulcerative colitis. 2. Hepatic steatosis. Objective Remarks: HEENT/Neuro: No pallor or icterus, tongue moist, DORA, Awake alert oriented 3 , nonfocal grossly, moving all 4 extremities Neck: No JVD Chest/pulmonary: CTA bilaterally Cardiovascular: S1-S2 regular no gallop or murmur GI/abdomen: Soft, vague tenderness right upper abdomen, no guarding, bowel sounds present Extremities: Warm bilaterally, no edema Assessment and Plan - Assessment and Plan Plan: 42-year-old female with: Abdominal pain Lactic acidosis (resolved) Colitis on CT Hyperglycemia MAN Leukocytosis Alcohol abuse Elevated LFTs with alcohol induced liver disease Dehydration Plan: Neuro: Follow neuro status. Watch for alcohol withdrawal. Added Xanax as needed for anxiety. CIWA protocol initiated. P.o. thiamine/folic acid/MVI. Cardiovascular: Aggressive IV hydration. Watch for hypotension. Pulmonary: Supplemental O2 as needed. Currently on room air. GI/liver: Suspect IBD versus other etiology for colitis. GI consult noted. Patient may need colonoscopy. Continue IV fluids, empiric antibiotic coverage with Zosyn. Advance p.o. diet when okay with GI. Renal/: IV hydration, strict intake output, monitor and replete electrolytes, follow BUN/creatinine. ID: Blood cultures obtained. Empiric Zosyn. Flagyl IV added per GI. Stool for C. difficile pending however patient has not had any diarrhea. Heme: Follow CBC Endocrine: HbA1c below 5. Doubt diabetes mellitus. Suspect stress-induced hyperglycemia on admission. Sliding scale insulin for glycemic control. Prophylaxis: PPI/SCDs/Lovenox. Consult and transfer to hospitalist service for further medical management. Patient will be transferred out of ICU later today provided she does not go into worsening alcohol withdrawal. Further GI workup deferred to Dr Collins.
[2017-10-04] MEDS: Sodium Bicarbonate 8.4% Inj 150 MEQ in Water for Inj, Sterile 850 ML IV.CONT SCH (07:23)
[2017-10-04] MEDS ORDERED: Potassium Phosphate Inj 30 MMOL in Sodium Chlor 0.9% Inj 250 ML IV.SIG ONE (08:00)
[2017-10-04] MEDS: Senna/Docusate Sodium 8.6/50 MG Tablet PO SCH ×2 (08:05→20:02)
[2017-10-04] MEDS: Pantoprazole Inj 40 MG Vial IV.PUSH SCH (08:05)
[2017-10-04] MEDS: Multivitamin/Minerals Therapeutic Tablet PO SCH (08:05)
[2017-10-04] MEDS: Folic Acid 1 MG Tablet PO SCH (08:05)
[2017-10-04] MEDS: Dextrose 5%/NaCl 0.45% Inj 1,000 ML IV.CONT SCH ×2 (09:44→18:54)
[2017-10-04] MEDS: Insulin NovoLIN Regular Correctional Sugar Inj SQ SCH ×4 (09:45→20:02)
--- NOTE | 2017-10-04 15:47 | P.PNGI ---
Subjective Interval history: Patient is resting in the bed very drowsy Currently being monitored and aggressively treated for her DTs and agitation Lactic acid level trended back down to normal range 1.8 No obvious nausea or vomiting Gradual decrease in trending of liver enzymes and bilirubin No known diarrhea, stool studies pending <Randa Cartwright - Last Filed: 10/04/17 15:41> Physical Exam Vital signs: Vital Signs 10/03/17 16:00 10/03/17 19:00 10/03/17 20:00 Temperature 98.3 F 98.5 F Pulse Rate 97 H 132 H 111 H Respiratory Rate 20 20 20 Blood Pressure 99/63 L 100/74 101/73 Pulse Oximetry 97 99 99 10/03/17 21:00 10/03/17 22:00 10/03/17 23:00 Temperature Pulse Rate 95 H 72 65 Respiratory Rate 20 18 18 Blood Pressure 100/68 106/72 110/69 Pulse Oximetry 99 97 98 10/04/17 00:00 10/04/17 01:00 10/04/17 02:00 Temperature 98.3 F Pulse Rate 65 125 H 65 Respiratory Rate 17 23 15 Blood Pressure 110/76 106/74 109/78 Pulse Oximetry 98 99 99 10/04/17 03:00 10/04/17 04:00 10/04/17 05:00 Temperature 98.6 F Pulse Rate 67 94 H 70 Respiratory Rate 23 14 15 Blood Pressure 115/84 110/79 105/76 Pulse Oximetry 99 99 99 10/04/17 06:00 10/04/17 07:00 10/04/17 07:01 Temperature Pulse Rate 70 130 H 102 H Respiratory Rate 25 H 32 H 26 H Blood Pressure 102/77 122/84 Pulse Oximetry 99 98 94 L 10/04/17 08:00 10/04/17 08:36 10/04/17 09:23 Temperature 98.2 F Pulse Rate 93 H 80 Respiratory Rate 24 15 Blood Pressure 110/62 Pulse Oximetry 98 98 10/04/17 10:00 10/04/17 11:00 10/04/17 11:29 Temperature Pulse Rate 73 67 63 Respiratory Rate 17 13 12 Blood Pressure 116/60 94/64 L Pulse Oximetry 98 95 95 10/04/17 12:00 10/04/17 13:00 Temperature 98.1 F Pulse Rate 62 64 Respiratory Rate 12 16 Blood Pressure 100/67 105/76 Pulse Oximetry 96 97 Intake & Output 10/03/17 10/04/17 10/04/17 18:59 06:59 18:59 Intake Total 2350 / 2350 1390 / 1390 1350 / 1350 Balance 2350 / 2350 1390 / 1390 1350 / 1350 Weight 56.2 kg Intake: IV 2350 / 2350 1150 / 1150 1350 / 1350 D5W/1/2 NS Inj 1,000 ML @ 125 1000 / 1000 1000 / 1000 mls/hr IV.CONT .Q8H [facility] Rx#: [id number] D5W/Normal Saline Inj 1,000 ML 1000 / 1000 @ 200 mls/hr IV.CONT .Q5H [facility] Rx#:[id number] NS Inj 1,000 ML @ 250 mls/hr IV 1200 / 1200 .CONT .Q4H [facility] Rx#:[id number] Magnesium Sulfate Inj 2 GM In 100 / 100 NS Inj 96 ML @ 50 mls/hr IV.SIG STAT [facility] Rx#:[id number] Zosyn 2.25 GM Premix 50 ML @ 50 / 50 50 / 50 100 / 100 100 mls/hr IV.SIG Q6H [facility] Rx#: [id number] KCl 20 mEq Premix Inj 20 meq In 100 / 100 100 ml @ 100 mls/hr IV.SIG Q1H PRN Rx#:[id number] Flagyl 500 MG Inj 100 ML @ 100 100 / 100 100 / 100 mls/hr IV.SIG Q8H [facility] Rx#: [id number] Oral 240 / 240 Other: # Voids 3 Date of Last Bowel Movement 10/03/17 10/03/17 Weight On Admission 56.2 kg - Constitutional somnolent - Routine HEENT Exam Head: Present: normocephalic ENT: Present: mucous membranes dry - Routine Neck Exam Present: supple - Routine Respiratory Exam Present: accessory muscle use (Even unlabored no shortness of breath) - Routine Cardiovascular Exam Present: RRR - Routine Abdominal Exam Present: soft (Nondistended nontender active bowel sounds) - Routine Skin Exam Present: intact <Randa Cartwright - Last Filed: 10/04/17 15:41> Vital signs: Vital Signs 10/03/17 19:00 10/03/17 20:00 10/03/17 21:00 Temperature 98.5 F Pulse Rate 132 H 111 H 95 H Respiratory Rate 20 20 20 Blood Pressure 100/74 101/73 100/68 Pulse Oximetry 99 99 99 10/03/17 22:00 10/03/17 23:00 10/04/17 00:00 Temperature 98.3 F Pulse Rate 72 65 65 Respiratory Rate 18 18 17 Blood Pressure 106/72 110/69 110/76 Pulse Oximetry 97 98 98 10/04/17 01:00 10/04/17 02:00 10/04/17 03:00 Temperature Pulse Rate 125 H 65 67 Respiratory Rate 23 15 23 Blood Pressure 106/74 109/78 115/84 Pulse Oximetry 99 99 99 10/04/17 04:00 10/04/17 05:00 10/04/17 06:00 Temperature 98.6 F Pulse Rate 94 H 70 70 Respiratory Rate 14 15 25 H Blood Pressure 110/79 105/76 102/77 Pulse Oximetry 99 99 99 10/04/17 07:00 10/04/17 07:01 10/04/17 08:00 Temperature 98.2 F Pulse Rate 130 H 102 H 93 H Respiratory Rate 32 H 26 H 24 Blood Pressure 122/84 110/62 Pulse Oximetry 98 94 L 98 10/04/17 08:36 10/04/17 09:23 10/04/17 10:00 Temperature Pulse Rate 80 73 Respiratory Rate 15 17 Blood Pressure 116/60 Pulse Oximetry 98 98 10/04/17 11:00 10/04/17 11:29 10/04/17 12:00 Temperature Pulse Rate 67 63 62 Respiratory Rate 13 12 12 Blood Pressure 94/64 L 100/67 Pulse Oximetry 95 95 96 10/04/17 13:00 Temperature 98.1 F Pulse Rate 64 Respiratory Rate 16 Blood Pressure 105/76 Pulse Oximetry 97 Intake & Output 10/03/17 10/04/17 10/04/17 18:59 06:59 18:59 Intake Total 2350 / 2350 1390 / 1390 1350 / 1350 Balance 2350 / 2350 1390 / 1390 1350 / 1350 Weight 56.2 kg Intake: IV 2350 / 2350 1150 / 1150 1350 / 1350 D5W/1/2 NS Inj 1,000 ML @ 125 1000 / 1000 1000 / 1000 mls/hr IV.CONT .Q8H [facility] Rx#: [id number] D5W/Normal Saline Inj 1,000 ML 1000 / 1000 @ 200 mls/hr IV.CONT .Q5H [facility] Rx#:[id number] NS Inj 1,000 ML @ 250 mls/hr IV 1200 / 1200 .CONT .Q4H [facility] Rx#:[id number] Magnesium Sulfate Inj 2 GM In 100 / 100 NS Inj 96 ML @ 50 mls/hr IV.SIG STAT STA Rx#:[id number] Zosyn 2.25 GM Premix 50 ML @ 50 / 50 50 / 50 100 / 100 100 mls/hr IV.SIG Q6H [facility] Rx#: [id number] KCl 20 mEq Premix Inj 20 meq In 100 / 100 100 ml @ 100 mls/hr IV.SIG Q1H PRN Rx#:[id number] Flagyl 500 MG Inj 100 ML @ 100 100 / 100 100 / 100 mls/hr IV.SIG Q8H [facility] Rx#: [id number] Oral 240 / 240 Other: # Voids 3 Date of Last Bowel Movement 10/03/17 10/03/17 Weight On Admission 56.2 kg <Arely Chauhan - Last Filed: 10/04/17 16:24> Results - Labs CBC & Chem 7: 10/03/17 04:50 10/04/17 05:10 Laboratory Results - last 24 hr 10/03/17 10/03/17 10/03/17 04:50 10:30 22:14 Sodium Potassium Chloride Carbon Dioxide Anion Gap BUN Creatinine Estimated GFR POC Glucose 175 H Random Glucose Hemoglobin A1c 4.2 L Lactic Acid Calcium Prot Corrected Calcium Phosphorus Magnesium Total Bilirubin AST ALT Alkaline Phosphatase Total Protein Albumin Nasal Screen MRSA (PCR) Not detected 10/04/17 10/04/17 10/04/17 01:04 05:10 05:10 Sodium 136 136 135 L Potassium 3.6 D 3.1 L 3.1 L Chloride 96 L 96 L 95 L Carbon Dioxide 28.4 26.6 26.7 Anion Gap 12 13 13 BUN 20 H 15 16 Creatinine 1.04 H 0.98 0.96 Estimated GFR 58 L 62 L 63 L POC Glucose Random Glucose 140 H 108 H 108 H Hemoglobin A1c Lactic Acid Calcium 7.4 L* 7.8 L 7.7 L Prot Corrected Calcium 7.5 L Phosphorus 0.5 L Magnesium 1.2 L Total Bilirubin 1.4 H AST 66 H ALT 47 Alkaline Phosphatase 62 Total Protein 6.9 6.9 Albumin 3.7 Nasal Screen MRSA (PCR) 10/04/17 05:10 Sodium Potassium Chloride Carbon Dioxide Anion Gap BUN Creatinine Estimated GFR POC Glucose Random Glucose Hemoglobin A1c Lactic Acid 1.8 Calcium Prot Corrected Calcium Phosphorus Magnesium Total Bilirubin AST ALT Alkaline Phosphatase Total Protein Albumin Nasal Screen MRSA (PCR) Microbiology 10/03/17 08:57 Blood - Peripheral Aerobic Blood Culture - Preliminary No growth in 1 day 10/03/17 08:57 Blood - Peripheral Anaerobic Blood Culture - Preliminary No growth in 1 day 10/03/17 08:50 Blood - Peripheral Aerobic Blood Culture - Preliminary No growth in 1 day 10/03/17 08:50 Blood - Peripheral Anaerobic Blood Culture - Preliminary No growth in 1 day <Randa Cartwright - Last Filed: 10/04/17 15:41> - Labs CBC & Chem 7: 10/03/17 04:50 10/04/17 05:10 Laboratory Results - last 24 hr 10/03/17 10/03/17 10/03/17 04:50 10:30 22:14 Sodium Potassium Chloride Carbon Dioxide Anion Gap BUN Creatinine Estimated GFR POC Glucose 175 H Random Glucose Hemoglobin A1c 4.2 L Lactic Acid Calcium Prot Corrected Calcium Phosphorus Magnesium Total Bilirubin AST ALT Alkaline Phosphatase Total Protein Albumin Nasal Screen MRSA (PCR) Not detected 10/04/17 10/04/17 10/04/17 01:04 05:10 05:10 Sodium 136 136 135 L Potassium 3.6 D 3.1 L 3.1 L Chloride 96 L 96 L 95 L Carbon Dioxide 28.4 26.6 26.7 Anion Gap 12 13 13 BUN 20 H 15 16 Creatinine 1.04 H 0.98 0.96 Estimated GFR 58 L 62 L 63 L POC Glucose Random Glucose 140 H 108 H 108 H Hemoglobin A1c Lactic Acid Calcium 7.4 L* 7.8 L 7.7 L Prot Corrected Calcium 7.5 L Phosphorus 0.5 L Magnesium 1.2 L Total Bilirubin 1.4 H AST 66 H ALT 47 Alkaline Phosphatase 62 Total Protein 6.9 6.9 Albumin 3.7 Nasal Screen MRSA (PCR) 10/04/17 05:10 Sodium Potassium Chloride Carbon Dioxide Anion Gap BUN Creatinine Estimated GFR POC Glucose Random Glucose Hemoglobin A1c Lactic Acid 1.8 Calcium Prot Corrected Calcium Phosphorus Magnesium Total Bilirubin AST ALT Alkaline Phosphatase Total Protein Albumin Nasal Screen MRSA (PCR) Microbiology 10/03/17 08:57 Blood - Peripheral Aerobic Blood Culture - Preliminary No growth in 1 day 10/03/17 08:57 Blood - Peripheral Anaerobic Blood Culture - Preliminary No growth in 1 day 10/03/17 08:50 Blood - Peripheral Aerobic Blood Culture - Preliminary No growth in 1 day 10/03/17 08:50 Blood - Peripheral Anaerobic Blood Culture - Preliminary No growth in 1 day <Arely Chauhan - Last Filed: 10/04/17 16:24> Assessment and Plan (1) Alcoholic hepatitis Status: Acute Code(s): K70.10 - Alcoholic hepatitis without ascites (2) Terminal ileitis Status: Acute Code(s): K50.00 - Crohn's disease of small intestine without complications (3) Acidosis, lactic Status: Acute Code(s): E87.2 - Acidosis - Plan Seen and examined with H[employer] SERVICE MANAGER, no bleeding, no previous h/o colitis. Suspect infectious colitis, possible IBD. Stool studies, antibiotics. Colonoscopy planned for friday once more stable Alcoholic hepatitis EtOH abuse long-term but had restarted drinking due to stressors approximately 5 months ago. Has been told that she was borderline hepatic cirrhosis 1 year ago. Transaminitis and hyperbilirubinemia secondary to her alcoholic hepatitis. Nausea vomiting right upper quadrant pain approximately 4 days before admission. Since receiving IV fluids patient's nausea and vomiting has resided but still having right upper quadrant discomfort and soreness to light palpation. Possible irritable bowel syndrome versus colitis. Abnormal CT scan on admission did show chronic inflammatory changes of the colon and terminal ileum with evidence of more active inflammation involving the descending and distal transverse colon given the chronic changes recommended clinical coordination for inflammatory bowel disease such as ulcerative colitis. Hepatic steatosis per CT. Currently patient is being monitored in the intensive care setting with elevated lactic acid level as well as abnormal labs. No family history of colon cancer and no previous EGD and colonoscopy 10/04/2017 patient is sedated, aggressive monitoring for DTs and meds needed for her safety. Noted per staff increased amount of tremors this a.m. . Current labs show total bilirubin 1.4, AST 66 and ALT T 47 which is mildly decreased . unable to assess any subjective findings today. Labs note decrease in lactic acid level back down to 1.8. Evaluate for colitis infectious versus inflammatory. Stool studies pending. Possible colonoscopy [place] dependent on patient's stability. Stool studies pending Plan Diet per attending Monitor labs with special attention to hemoglobin and liver enzymes Stool studies pending Monitor patient's symptoms of abdominal pain for any acute changes Once patient stabilizes, plan colonoscopy possibly Friday PPI Anti-medics Bowel regimen as needed Further recommendations to follow Patient is seen per myself and Dr. Chauhan, note was written on his behalf <Randa Cartwright - Last Filed: 10/04/17 15:41> (1) Alcoholic hepatitis Status: Acute Code(s): K70.10 - Alcoholic hepatitis without ascites (2) Terminal ileitis Status: Acute Code(s): K50.00 - Crohn's disease of small intestine without complications (3) Acidosis, lactic Status: Acute Code(s): E87.2 - Acidosis - Plan Seen and examined with H[employer] SERVICE MANAGER, sleeping comfortably with significant other. Colonoscopy friday - Attending Attestation The exam, history, and the medical decision-making described in the above note were completed with the assistance of the mid-level provider. I reviewed and agree with the findings presented. I attest that I had a [id number] encounter with the patient on the same day, and personally performed and documented my assessment and findings in the medical record. <Arely Chauhan - Last Filed: 10/04/17 16:24>
[2017-10-04] MEDS: Enoxaparin Inj 30 MG/0.3 ML Syringe SQ SCH (18:53)
[2017-10-05] MEDS: Sod Chloride 0.9% Inj 1,000 ML IV.CONT SCH ×6 (00:04→18:11)
[2017-10-05] MEDS: Dextrose 5%/NaCl 0.45% Inj 1,000 ML IV.CONT SCH ×3 (00:04→15:40)
[2017-10-05] MEDS: Piperacil/Tazo 2.25 GM Premix 50 ML IV.SIG SCH ×4 (01:54→20:30)
[2017-10-05] MEDS: Chlorhexidine Gluconate 2% 1 Pack (2 Cloths) TOPICAL SCH (03:32)
[2017-10-05 06:21] LABS: Baso % (Auto) 0.4 % (0.0-2.0); Eos # (Auto) 0.1 th/mm3 (0.0-0.4); Eos % (Auto) 1.8 % (0.0-4.0); Hematocrit 32.4 % (35.0-46.0); Hemoglobin 11.2 gm/dL (11.6-15.3); Lymph # (Auto) 0.9 th/mm3 (1.0-4.8); Lymph % (Auto) 20.7 % (9.0-44.0); Mean Corpuscular HGB Conc 34.7 % (32.0-36.0); Mean Corpuscular Hemoglobin 36.7 pg (27.0-34.0); Mean Corpuscular Volume 105.7 fL (80.0-100.0); Mono # (Auto) 0.3 th/mm3 (0.0-0.9); Mono % (Auto) 7.2 % (0.0-8.0); Neut # (Auto) 3.1 th/mm3 (1.8-7.7); Neut % (Auto) 69.9 % (16.0-70.0); Platelet Count 99 th/mm3 (150-450); Red Blood Count 3.06 mil/mm3 (4.00-5.30); Red Cell Distribution Width 14.2 % (11.6-17.2); White Blood Count 4.4 th/mm3 (4.0-11.0)
[2017-10-05 06:58] LABS: Alanine Aminotransferase 74 U/L (10-53); Albumin 3.5 g/dL (3.4-5.0); Alkaline Phosphatase 71 U/L (45-117); Anion Gap 11 meq/L (5-15); Aspartate Aminotransferase 251 U/L (15-37); Blood Urea Nitrogen 8 mg/dL (7-18); Calcium 8.4 mg/dL (8.5-10.1); Carbon Dioxide 27.5 meq/L (21.0-32.0); Chloride 100 meq/L (98-107); Glomerular Filtration Rate 83 mL/min (>89); Glucose,Random 93 mg/dL (74-106); Sodium 138 meq/L (136-145); Total Protein 6.7 g/dL (6.4-8.2)
[2017-10-05 07:03] LABS: Potassium 2.9 meq/L (3.5-5.1)
--- NOTE | 2017-10-05 08:21 | P.PNFP ---
Subjective Interval history: No acute events overnight. Afebrile, vitals stable. Patient seen and examined this morning. Patient reports her abdominal pain has completely resolved, stating it is a 0/10 this morning. She denies feeling nauseated. Otherwise denies complaints. Specifically denies fevers or chills, CP , dyspnea, constipation, diarrhea, urinary issues, blood in stools. She reports her nausea and vomiting began this past week about on Friday and reports her boyfriend also had been sick so she initially felt it may have been a GI bug. States her RUQ abdominal pain began on Friday and worsened prior to admission here. Reports her last alcoholic drink was a glass of vodka this past Friday. Reports drinking about two 10-12 ounce glasses of vodka almost daily for the past 5 months. Denies taking any over the counter medications recently. <Jared Carney - 10/05/17 12:16> Results - Labs Result diagrams: 10/06/17 04:04 10/06/17 04:04 <Kieran Cotto - 10/06/17 13:37> Abnormal lab results 10/06/17 10/06/17 Range/Units 04:04 04:04 WBC 3.7 L (4.0-11.0) th/mm3 RBC 2.95 L (4.00-5.30) mil/mm3 Hgb 10.9 L (11.6-15.3) gm/dL Hct 31.1 L (35.0-46.0) % MCV 105.3 H (80.0-100.0) fL MCH 37.0 H (27.0-34.0) pg Plt Count 105 L (150-450) th/mm3 [place] % (Auto) 10.2 H (0.0-8.0) % Lymph # (Auto) 0.7 L (1.0-4.8) th/mm3 Potassium 3.0 L (3.5-5.1) meq/L BUN 5 L (7-18) mg/dL Calcium 8.2 L D (8.5-10.1) mg/dL Total Bilirubin 1.3 H (0.2-1.0) mg/dL AST 320 H (15-37) U/L ALT 118 H (10-53) U/L Albumin 3.3 L D (3.4-5.0) g/dL Short CBC 10/06/17 Range/Units 04:04 WBC 3.7 L (4.0-11.0) th/mm3 Hgb 10.9 L (11.6-15.3) gm/dL Hct 31.1 L (35.0-46.0) % Plt Count 105 L (150-450) th/mm3 BMP 10/06/17 04:04 Sodium 138 Potassium 3.0 L Chloride 104 Carbon Dioxide 23.6 BUN 5 L Creatinine 0.68 Calcium 8.2 L D Liver Function 10/06/17 Range/Units 04:04 Total Bilirubin 1.3 H (0.2-1.0) mg/dL AST 320 H (15-37) U/L ALT 118 H (10-53) U/L Alkaline Phosphatase 72 (45-117) U/L Albumin 3.3 L D (3.4-5.0) g/dL <Kieran Cotto - 10/06/17 13:37> Abnormal lab results 10/04/17 10/05/17 10/05/17 Range/Units 19:56 05:13 05:13 RBC 3.06 L (4.00-5.30) mil/mm3 Hgb 11.2 L (11.6-15.3) gm/dL Hct 32.4 L (35.0-46.0) % MCV 105.7 H (80.0-100.0) fL MCH 36.7 H (27.0-34.0) pg Plt Count 99 L D (150-450) th/mm3 Lymph # (Auto) 0.9 L (1.0-4.8) th/mm3 Potassium 2.9 L* (3.5-5.1) meq/L Estimated GFR 83 L (>89) mL/min POC Glucose 122 H (68-110) mg/dl Calcium 8.4 L (8.5-10.1) mg/dL Total Bilirubin 1.6 H (0.2-1.0) mg/dL AST 251 H (15-37) U/L ALT 74 H (10-53) U/L Short CBC 10/05/17 Range/Units 05:13 WBC 4.4 (4.0-11.0) th/mm3 Hgb 11.2 L (11.6-15.3) gm/dL Hct 32.4 L (35.0-46.0) % Plt Count 99 L D (150-450) th/mm3 BMP 10/05/17 05:13 Sodium 138 Potassium 2.9 L* Chloride 100 Carbon Dioxide 27.5 BUN 8 Creatinine 0.76 Calcium 8.4 L Liver Function 10/05/17 Range/Units 05:13 Total Bilirubin 1.6 H (0.2-1.0) mg/dL AST 251 H (15-37) U/L ALT 74 H (10-53) U/L Alkaline Phosphatase 71 (45-117) U/L Albumin 3.5 (3.4-5.0) g/dL <LuizlissetteJared dillon - 10/05/17 08:21> Physical Exam Vital signs: Vital Signs 10/05/17 14:00 10/05/17 15:00 10/05/17 16:00 Temperature Pulse Rate 87 78 82 Respiratory Rate 22 20 18 Blood Pressure Pulse Oximetry 10/05/17 17:01 10/05/17 20:00 10/05/17 22:52 Temperature 98.2 F Pulse Rate 191 H 84 Respiratory Rate 17 22 Blood Pressure 112/80 Pulse Oximetry 100 98 10/06/17 00:00 10/06/17 04:00 10/06/17 06:46 Temperature 99.5 F 98.6 F 97.9 F Pulse Rate 88 89 71 Respiratory Rate 20 16 Blood Pressure 114/82 114/82 118/86 Pulse Oximetry 99 100 96 10/06/17 08:00 Temperature 98.3 F Pulse Rate 82 Respiratory Rate 16 Blood Pressure 137/88 Pulse Oximetry 100 Intake & Output 10/05/17 10/06/17 10/06/17 18:59 06:59 18:59 Intake Total 440 / 440 1360 / 1360 250 / 250 Output Total 200 / 200 Balance 240 / 240 1360 / 1360 250 / 250 Intake: IV 200 / 200 400 / 400 Zosyn 2.25 GM Premix 50 ML @ 100 / 100 100 / 100 100 mls/hr IV.SIG Q6H [facility] Rx#: [id number] KCl 20 mEq Premix Inj 20 meq In 100 / 100 100 ml @ 50 mls/hr IV.SIG Q2H PRN Rx#:[id number] Flagyl 500 MG Inj 100 ML @ 100 100 / 100 200 / 200 mls/hr IV.SIG Q8H [facility] Rx#: [id number] Oral 240 / 240 960 / 960 Anesthesia Amount 250 / 250 Output: Emesis 200 / 200 Other: # Voids 2 7 Date of Last Bowel Movement 10/04/17 10/06/17 # Bowel Movements 0 5 # Emeses 1 <CottoKieran - 10/06/17 13:37> Vital Signs 10/04/17 08:36 10/04/17 09:23 10/04/17 10:00 Temperature Pulse Rate 80 73 Respiratory Rate 15 17 Blood Pressure 116/60 Pulse Oximetry 98 98 10/04/17 11:00 10/04/17 11:29 10/04/17 12:00 Temperature Pulse Rate 67 63 62 Respiratory Rate 13 12 12 Blood Pressure 94/64 L 100/67 Pulse Oximetry 95 95 96 10/04/17 13:00 10/04/17 13:42 10/04/17 14:00 Temperature 98.1 F 98 F Pulse Rate 64 68 85 Respiratory Rate 16 12 22 Blood Pressure 105/76 108/78 Pulse Oximetry 97 97 94 L 10/04/17 14:01 10/04/17 15:00 10/04/17 16:00 Temperature Pulse Rate 104 H 67 67 Respiratory Rate 17 16 31 H Blood Pressure 137/84 101/55 L 88/54 L Pulse Oximetry 91 L 97 98 10/04/17 17:00 10/04/17 18:00 10/04/17 19:00 Temperature 97.9 F Pulse Rate 70 86 72 Respiratory Rate 12 20 22 Blood Pressure 95/64 L 101/72 110/72 Pulse Oximetry 95 97 98 10/04/17 20:00 10/04/17 20:27 10/05/17 00:00 Temperature 98.5 F 98.2 F Pulse Rate 78 65 Respiratory Rate 22 13 Blood Pressure 97/67 L 110/74 Pulse Oximetry 97 96 98 10/05/17 04:00 10/05/17 08:00 Temperature 98.2 F Pulse Rate 73 Respiratory Rate 14 Blood Pressure 112/77 Pulse Oximetry 97 97 Intake & Output 10/04/17 10/05/17 10/05/17 18:59 06:59 18:59 Intake Total 1690 / 1690 1950 / 1950 Output Total 200 / 200 Balance 1490 / 1490 1950 / 1950 Weight 57.6 kg Intake: IV 1450 / 1450 1710 / 1710 D5W/1/2 NS Inj 1,000 ML @ 125 1000 / 1000 mls/hr IV.CONT .Q8H [facility] Rx#: [id number] D5W/Normal Saline Inj 1,000 ML 1000 / 1000 @ 200 mls/hr IV.CONT .Q5H [facility] Rx#:[id number] Magnesium Sulfate Inj 2 GM In 100 / 100 NS Inj 96 ML @ 50 mls/hr IV.SIG STAT STA Rx#:[id number] Zosyn 2.25 GM Premix 50 ML @ 100 / 100 150 / 150 100 mls/hr IV.SIG Q6H [facility] Rx#: [id number] KCl 20 mEq Premix Inj 20 meq In 100 / 100 100 / 100 100 ml @ 50 mls/hr IV.SIG Q2H PRN Rx#:[id number] Potassium Phosphate Inj 30 MMOL 260 / 260 In NS Inj 250 ML @ 43.333 mls/ hr IV.SIG ONCE ONE Rx#:[id number] Flagyl 500 MG Inj 100 ML @ 100 100 / 100 200 / 200 mls/hr IV.SIG Q8H [facility] Rx#: [id number] Oral 240 / 240 240 / 240 Output: Emesis 200 / 200 Other: # Voids 3 2 Date of Last Bowel Movement 10/03/17 10/04/17 # Bowel Movements 0 # Emeses 1 <Jared Carney - 10/05/17 08:21> Narrative: GENERAL: NAD, sitting comfortably in bed NEURO: Alert. Normal speech. pcts grossly intact. Bilateral tremor of hands noted. Motor grossly normal. SKIN: Warm and dry. No rashes or erythema. HEAD: Normocephalic. Atraumatic. EYES: EOMI. No injection or drainage. ENT: No nasal drainage. Moist mucous membranes. NECK: Supple, trachea midline. No JVD. CARDIOVASCULAR: Regular rate and rhythm without murmurs, rubs, or gallops. Peripheral pulses 2+. RESPIRATORY: Breath sounds clear to auscultation and equal bilaterally, without wheezes, rales, or rhonchi. No accessory muscle use. GASTROINTESTINAL: Abdomen soft, nontender throughout, nondistended, normal BS. No organomegaly or masses appreciated. No rebound tenderness. No guarding. MUSCULOSKELETAL: No lower extremity edema. Normal range of motion. BACK: Nontender without obvious deformity. <Jared Carney - 10/05/17 09:54> Assessment and Plan - Assessment (1) RUQ abdominal pain Code(s): R10.11 - Right upper quadrant pain Status: Acute Plan: Patient presented with reported 4-day history of nausea, vomiting, right-sided abdominal pain prior to admission here on 10/03 CT abdomen pelvis revealed inflammatory changes involving ileocolic junction as well as ascending and distal transverse colon Patient admitted to critical care medicine service and started empirically on Zosyn after blood cultures obtained Gastroenterology consulted, planning for colonoscopy on Friday - Stool studies ordered - Continue PPI and anti-emetics Consider etiology due to alcoholic hepatitis, IBS, colitis possibly infectious colitis, IBD, biliary colic Pain has improved and now resolved per patient after IV fluid administration and empiric Zosyn Continue Zosyn 2.25 gm IV q6h, continue flagyl per GI 500 mg IV q8h No reported family history of IBD, gallbladder disease, colon cancer, other GI issues Continue to monitor Hgb and liver enzymes (2) Anemia Code(s): D64.9 - Anemia, unspecified Status: Acute Plan: Hgb 11.2 this AM, from 15.5, patient asymptomatic and no report of GI bleed or other bleeding source Will repeat cbc, continue to monitor. Consider drop due to lab error or blood sample obtained from site distal or IV fluid administration, vs GI bleed or other medical cause. Patient appears very well this morning without report of GI source of bleed or hematemesis or other potential source May be significant dilutional component Macrocytic anemia, patient with significant history of etoh abuse Will transfer down from ICU if Hgb stable on repeat CBC (3) Hypokalemia Code(s): E87.6 - Hypokalemia Status: Acute Plan: K+ 2.9 this AM, consider due to acid base shifts as patient had been started on a bicarb drip due to severe metabolic acidosis Patient also noted to be hypomagnesemic Vomiting seems to have resolved Replete per ICU protocol, replete magnesium Continue to monitor (4) MAN (acute kidney injury) Code(s): N17.9 - Acute kidney failure, unspecified Status: Resolved Plan: Cr 1.90 on admission, likely pre-renal due to dehydration Now normalized s/p IVF administration Continue to monitor (5) Acidosis, lactic Code(s): E87.2 - Acidosis Status: Resolved Plan: Patient had severe metabolic acidosis on admission, lactic acid of 9.4 Started on bicarp drip per critical care Acidosis resolved, repeat lactic acid 1.8 (6) Alcoholic hepatitis Code(s): K70.10 - Alcoholic hepatitis without ascites Status: Chronic Plan: Continue to monitor LFTs Continue IVF, folic acid, thiamine, MV Patient noted to have bilateral tremors of her hands Reported her last drink was this past Friday Continue CIWA protocol (7) Hyperglycemia Code(s): R73.9 - Hyperglycemia, unspecified Status: Resolved Plan: Blood glucose noted to be 268 on admission, patient initially started on insulin drip due to suspicion for DKA given her symptomatology although per critical care unlikely the patient presented with DKA as she has no history of diabetes HbA1c 4.2 BGs now within normal limits Insulin drip discontinued (8) Nutrition, metabolism, and development symptoms Code(s): R63.8 - Other symptoms and signs concerning food and fluid intake Status: Acute Plan: Diet: heart healthy Electrolytes: as above, continue to monitor and replete as needed Fluids: Continue D5-1/2 NS at 125 cc/hr DVT ppx: Lovenox GI ppx: Protonix 40 mg IV daily <Jared Carney - 10/05/17 12:12> - Assessment and Plan 42 year old female with PMH significant for etoh abuse and alcoholic hepatitis and hepatic steatosis, admitted to critical care on 10/03 due to 4-day history of nausea, vomiting, and right-sided abdominal pain, as well as severe dehydration with MAN, severe metabolic acidosis, and hyperglycemia which have resolved. Patient transferred to hospitalist service on 10/04. Planning to transfer out of ICU today if repeat H/H remains stable. GI planning for colonoscopy Friday for further workup of symptoms. <Jared Carney - 10/05/17 12:16> - Attending Attestation See the residents documentation for details. I saw and evaluated the patient regarding the metz portions of this evaluation and agree with the residents findings and plans as written. Parts of this note were created using [employer] voice recognition software program. While efforts were made to correct any mistakes made by this software, some mistakes, errors, and omissions may remain in the final note that were not caught when the note was originally created. Plan of care was discussed and agreed upon with the patient as specifically documented in the above note. An opportunity to ask questions with explanation was provided. Patient voiced understanding on all information reviewed and discussed. <Kieran Cotto - 10/06/17 13:37>
[2017-10-05 08:27] LABS: Platelet Morphology Normal (Normal)
[2017-10-05] MEDS: Folic Acid 1 MG Tablet PO SCH (08:34)
[2017-10-05] MEDS: Pantoprazole Inj 40 MG Vial IV.PUSH SCH (08:34)
[2017-10-05] MEDS: Senna/Docusate Sodium 8.6/50 MG Tablet PO SCH ×2 (08:34→20:12)
[2017-10-05] MEDS: Multivitamin/Minerals Therapeutic Tablet PO SCH (08:34)
[2017-10-05] MEDS: Insulin NovoLIN Regular Correctional Sugar Inj SQ SCH ×4 (10:13→22:04)
--- NOTE | 2017-10-05 12:15 | P.PNGI ---
Physical Exam Vital signs: Vital Signs 10/04/17 13:00 10/04/17 13:42 10/04/17 14:00 Temperature 98.1 F 98 F Pulse Rate 64 68 85 Respiratory Rate 16 12 22 Blood Pressure 105/76 108/78 Pulse Oximetry 97 97 94 L 10/04/17 14:01 10/04/17 15:00 10/04/17 16:00 Temperature Pulse Rate 104 H 67 67 Respiratory Rate 17 16 31 H Blood Pressure 137/84 101/55 L 88/54 L Pulse Oximetry 91 L 97 98 10/04/17 17:00 10/04/17 18:00 10/04/17 19:00 Temperature 97.9 F Pulse Rate 70 86 72 Respiratory Rate 12 20 22 Blood Pressure 95/64 L 101/72 110/72 Pulse Oximetry 95 97 98 10/04/17 20:00 10/04/17 20:27 10/05/17 00:00 Temperature 98.5 F 98.2 F Pulse Rate 78 65 Respiratory Rate 22 13 Blood Pressure 97/67 L 110/74 Pulse Oximetry 97 96 98 10/05/17 04:00 10/05/17 08:00 Temperature 98.2 F Pulse Rate 73 Respiratory Rate 14 Blood Pressure 112/77 Pulse Oximetry 97 97 Intake & Output 10/04/17 10/05/17 10/05/17 18:59 06:59 18:59 Intake Total 1690 / 1690 1949 Output Total 200 / 200 Balance 1490 / 1490 1949 Weight 57.6 kg Intake: IV 1450 / 1450 1710 / 1710 D5W/1/2 NS Inj 1,000 ML @ 125 1000 / 1000 mls/hr IV.CONT .Q8H [facility] Rx#: [id number] D5W/Normal Saline Inj 1,000 ML 1000 / 1000 @ 200 mls/hr IV.CONT .Q5H [facility] Rx#:[id number] Magnesium Sulfate Inj 2 GM In 100 / 100 NS Inj 96 ML @ 50 mls/hr IV.SIG STAT STA Rx#:[id number] Zosyn 2.25 GM Premix 50 ML @ 100 / 100 150 / 150 100 mls/hr IV.SIG Q6H [facility] Rx#: [id number] KCl 20 mEq Premix Inj 20 meq In 100 / 100 100 / 100 100 ml @ 50 mls/hr IV.SIG Q2H PRN Rx#:[id number] Potassium Phosphate Inj 30 MMOL 260 / 260 In NS Inj 250 ML @ 43.333 mls/ hr IV.SIG ONCE ONE Rx#:[id number] Flagyl 500 MG Inj 100 ML @ 100 100 / 100 200 / 200 mls/hr IV.SIG Q8H [facility] Rx#: [id number] Oral 240 / 240 240 / 240 Output: Emesis 200 / 200 Other: # Voids 3 2 Date of Last Bowel Movement 10/03/17 10/04/17 # Bowel Movements 0 # Emeses 1 <Randa Cartwright M - Last Filed: 10/05/17 14:04> Vital signs: Vital Signs 10/04/17 15:00 10/04/17 16:00 10/04/17 17:00 Temperature Pulse Rate 67 67 70 Respiratory Rate 16 31 H 12 Blood Pressure 101/55 L 88/54 L 95/64 L Pulse Oximetry 97 98 95 10/04/17 18:00 10/04/17 19:00 10/04/17 20:00 Temperature 97.9 F 98.5 F Pulse Rate 86 72 78 Respiratory Rate 20 22 22 Blood Pressure 101/72 110/72 97/67 L Pulse Oximetry 97 98 97 10/04/17 20:27 10/05/17 00:00 10/05/17 04:00 Temperature 98.2 F 98.2 F Pulse Rate 65 73 Respiratory Rate 13 14 Blood Pressure 110/74 112/77 Pulse Oximetry 96 98 97 10/05/17 08:00 Temperature Pulse Rate Respiratory Rate Blood Pressure Pulse Oximetry 97 Intake & Output 10/04/17 10/05/17 10/05/17 18:59 06:59 18:59 Intake Total 1690 / 1690 1949 Output Total 200 / 200 Balance 1490 / 1490 1949 / 1949 Weight 57.6 kg Intake: IV 1450 / 1450 1710 / 1710 D5W/1/2 NS Inj 1,000 ML @ 125 1000 / 1000 mls/hr IV.CONT .Q8H [facility] Rx#: [id number] D5W/Normal Saline Inj 1,000 ML 1000 / 1000 @ 200 mls/hr IV.CONT .Q5H [facility] Rx#:[id number] Magnesium Sulfate Inj 2 GM In 100 / 100 NS Inj 96 ML @ 50 mls/hr IV.SIG STAT STA Rx#:[id number] Zosyn 2.25 GM Premix 50 ML @ 100 / 100 150 / 150 100 mls/hr IV.SIG Q6H [facility] Rx#: [id number] KCl 20 mEq Premix Inj 20 meq In 100 / 100 100 / 100 100 ml @ 50 mls/hr IV.SIG Q2H PRN Rx#:[id number] Potassium Phosphate Inj 30 MMOL 260 / 260 In NS Inj 250 ML @ 43.333 mls/ hr IV.SIG ONCE ONE Rx#:[id number] Flagyl 500 MG Inj 100 ML @ 100 100 / 100 200 / 200 mls/hr IV.SIG Q8H [facility] Rx#: [id number] Oral 240 / 240 240 / 240 Output: Emesis 200 / 200 Other: # Voids 3 2 Date of Last Bowel Movement 10/03/17 10/04/17 # Bowel Movements 0 # Emeses 1 <Arely Martinez - Last Filed: 10/05/17 14:37> Results - Labs CBC & Chem 7: 10/05/17 12:30 10/05/17 12:30 Laboratory Results - last 24 hr 10/04/17 10/05/17 10/05/17 19:56 05:13 05:13 WBC 4.4 RBC 3.06 L Hgb 11.2 L Hct 32.4 L MCV 105.7 H MCH 36.7 H MCHC 34.7 RDW 14.2 Plt Count 99 L D MPV 8.0 Prelim Diff (Auto) Slide review pending Neut % (Auto) 69.9 Lymph % (Auto) 20.7 [place] % (Auto) 7.2 Eos % (Auto) 1.8 Baso % (Auto) 0.4 Neut # (Auto) 3.1 Lymph # (Auto) 0.9 L [place] # (Auto) 0.3 Eos # (Auto) 0.1 Baso # (Auto) 0.0 WBC Differential . Diff Scan Auto diff confirmed Differential Comment . Platelet Estimate Low L Platelet Morphology Normal Sodium 138 Potassium 2.9 L* Chloride 100 Carbon Dioxide 27.5 Anion Gap 11 BUN 8 Creatinine 0.76 Estimated GFR 83 L POC Glucose 122 H Random Glucose 93 Calcium 8.4 L Total Bilirubin 1.6 H AST 251 H ALT 74 H Alkaline Phosphatase 71 Total Protein 6.7 Albumin 3.5 Microbiology 10/03/17 08:57 Blood - Peripheral Aerobic Blood Culture - Preliminary No growth in 2 days 10/03/17 08:57 Blood - Peripheral Anaerobic Blood Culture - Preliminary No growth in 2 days 10/03/17 08:50 Blood - Peripheral Aerobic Blood Culture - Preliminary No growth in 2 days 10/03/17 08:50 Blood - Peripheral Anaerobic Blood Culture - Preliminary No growth in 2 days <Randa Cartwright - Last Filed: 10/05/17 14:04> - Labs CBC & Chem 7: 10/05/17 12:30 10/05/17 12:30 Laboratory Results - last 24 hr 10/04/17 10/05/17 10/05/17 19:56 05:13 05:13 WBC 4.4 RBC 3.06 L Hgb 11.2 L Hct 32.4 L MCV 105.7 H MCH 36.7 H MCHC 34.7 RDW 14.2 Plt Count 99 L D MPV 8.0 Prelim Diff (Auto) Slide review pending Neut % (Auto) 69.9 Lymph % (Auto) 20.7 [place] % (Auto) 7.2 Eos % (Auto) 1.8 Baso % (Auto) 0.4 Neut # (Auto) 3.1 Lymph # (Auto) 0.9 L [place] # (Auto) 0.3 Eos # (Auto) 0.1 Baso # (Auto) 0.0 WBC Differential . Diff Scan Auto diff confirmed Differential Comment . Platelet Estimate Low L Platelet Morphology Normal Sodium 138 Potassium 2.9 L* Chloride 100 Carbon Dioxide 27.5 Anion Gap 11 BUN 8 Creatinine 0.76 Estimated GFR 83 L POC Glucose 122 H Random Glucose 93 Calcium 8.4 L Total Bilirubin 1.6 H AST 251 H ALT 74 H Alkaline Phosphatase 71 Total Protein 6.7 Albumin 3.5 10/05/17 10/05/17 12:30 12:30 WBC 5.3 RBC 3.35 L Hgb 12.2 Hct 35.2 MCV 105.1 H MCH 36.5 H MCHC 34.7 RDW 14.2 Plt Count 108 L MPV 7.5 Prelim Diff (Auto) Neut % (Auto) 75.0 H Lymph % (Auto) 15.1 [place] % (Auto) 8.0 Eos % (Auto) 1.3 Baso % (Auto) 0.6 Neut # (Auto) 4.0 Lymph # (Auto) 0.8 L [place] # (Auto) 0.4 Eos # (Auto) 0.1 Baso # (Auto) 0.0 WBC Differential . Diff Scan Differential Comment Auto diff final Platelet Estimate Platelet Morphology Sodium 139 Potassium 3.0 L Chloride 102 Carbon Dioxide 26.1 Anion Gap 11 BUN 7 Creatinine 0.80 Estimated GFR 78 L POC Glucose Random Glucose 85 Calcium 9.1 Total Bilirubin 1.6 H AST 321 H ALT 97 H Alkaline Phosphatase 81 Total Protein 7.4 D Albumin 4.0 Microbiology 10/03/17 08:57 Blood - Peripheral Aerobic Blood Culture - Preliminary No growth in 2 days 10/03/17 08:57 Blood - Peripheral Anaerobic Blood Culture - Preliminary No growth in 2 days 10/03/17 08:50 Blood - Peripheral Aerobic Blood Culture - Preliminary No growth in 2 days 10/03/17 08:50 Blood - Peripheral Anaerobic Blood Culture - Preliminary No growth in 2 days <Arely Martinez - Last Filed: 10/05/17 14:37> Assessment and Plan (1) Alcoholic hepatitis Status: Chronic Code(s): K70.10 - Alcoholic hepatitis without ascites (2) Terminal ileitis Status: Acute Code(s): K50.00 - Crohn's disease of small intestine without complications (3) Acidosis, lactic Status: Resolved Code(s): E87.2 - Acidosis - Plan Alcoholic hepatitis EtOH abuse long-term but had restarted drinking due to stressors approximately 5 months ago. Has been told that she was borderline hepatic cirrhosis 1 year ago. Transaminitis and hyperbilirubinemia secondary to her alcoholic hepatitis. Nausea vomiting right upper quadrant pain approximately 4 days before admission. Since receiving IV fluids patient's nausea and vomiting has resided but still having right upper quadrant discomfort and soreness to light palpation. Possible irritable bowel syndrome versus colitis. Abnormal CT scan on admission did show chronic inflammatory changes of the colon and terminal ileum with evidence of more active inflammation involving the descending and distal transverse colon given the chronic changes recommended clinical coordination for inflammatory bowel disease such as ulcerative colitis. Hepatic steatosis per CT. Currently patient is being monitored in the intensive care setting with elevated lactic acid level as well as abnormal labs. No family history of colon cancer and no previous EGD and colonoscopy 10/04/2017 patient is sedated, aggressive monitoring for DTs and meds needed for her safety. Noted per staff increased amount of tremors this a.m. . Current labs show total bilirubin 1.4, AST 66 and ALT T 47 which is mildly decreased . unable to assess any subjective findings today. Labs note decrease in lactic acid level back down to 1.8. Evaluate for colitis infectious versus inflammatory. Stool studies pending. Possible colonoscopy Friday dependent on patient's stability. Stool studies pending 10/05/2017 patient is alert today sitting up in the bed no obvious anxiety or tremors noted. Current hemoglobin 11.2 which is a decrease over the past 24 hours but could be related to some hydration. Patient has no nausea no vomiting , notes loose stool, no constipation. Current labs show bilirubin 1.6, AST 251 ALT 74 which is a gradual improvement. Discussed with patient diagnostic colonoscopy for further recommendations and patient has agreed. Prep today with mag citrate and Dulcolax spread out over the afternoon due to patient's history of weeks stomach. Patient could transition to a regular room from a GI perspective, and plan colonoscopy in the morning. Supportive care to patient, colonoscopy will review any infectious versus inflammatory colitis possible IBD. No stool studies sign Plan Diet clear liquids Monitor labs with special attention to hemoglobin and liver enzymes Monitor patient's symptoms of abdominal pain for any acute changes Consent for colonoscopy Friday Dulcolax and mag citrate prep Friday N.p.o. Friday night for procedure Friday a.m. PPI Antiemetics Bowel regimen Further recommendations to follow Patient is seen per myself and Dr. martinez, note was written on his behalf <Randa Cartwright - Last Filed: 10/05/17 14:04> (1) Alcoholic hepatitis Status: Chronic Code(s): K70.10 - Alcoholic hepatitis without ascites (2) Terminal ileitis Status: Acute Code(s): K50.00 - Crohn's disease of small intestine without complications (3) Acidosis, lactic Status: Resolved Code(s): E87.2 - Acidosis - Plan Seen and examined with [employer] DEPOSIT ATTENDANT, no bleeding. Colonoscopy planned for tomorrow. - Attending Attestation The exam, history, and the medical decision-making described in the above note were completed with the assistance of the mid-level provider. I reviewed and agree with the findings presented. I attest that I had a [id number] encounter with the patient on the same day, and personally performed and documented my assessment and findings in the medical record. <Arely Martinez - Last Filed: 10/05/17 14:37>
[2017-10-05 12:43] LABS: Baso % (Auto) 0.6 % (0.0-2.0); Eos # (Auto) 0.1 th/mm3 (0.0-0.4); Eos % (Auto) 1.3 % (0.0-4.0); Hematocrit 35.2 % (35.0-46.0); Hemoglobin 12.2 gm/dL (11.6-15.3); Lymph # (Auto) 0.8 th/mm3 (1.0-4.8); Lymph % (Auto) 15.1 % (9.0-44.0); Mean Corpuscular HGB Conc 34.7 % (32.0-36.0); Mean Corpuscular Hemoglobin 36.5 pg (27.0-34.0); Mean Corpuscular Volume 105.1 fL (80.0-100.0); Mean Platelet Volume 7.5 fL (7.0-11.0); Mono # (Auto) 0.4 th/mm3 (0.0-0.9); Platelet Count 108 th/mm3 (150-450); Red Blood Count 3.35 mil/mm3 (4.00-5.30); Red Cell Distribution Width 14.2 % (11.6-17.2); White Blood Count 5.3 th/mm3 (4.0-11.0)
[2017-10-05 13:02] LABS: Anion Gap 11 meq/L (5-15); Aspartate Aminotransferase 321 U/L (15-37); Blood Urea Nitrogen 7 mg/dL (7-18); Calcium 9.1 mg/dL (8.5-10.1); Carbon Dioxide 26.1 meq/L (21.0-32.0); Chloride 102 meq/L (98-107); Glomerular Filtration Rate 78 mL/min (>89); Glucose,Random 85 mg/dL (74-106); Sodium 139 meq/L (136-145)
[2017-10-05 13:05] LABS: Alanine Aminotransferase 97 U/L (10-53); Alkaline Phosphatase 81 U/L (45-117); Total Protein 7.4 g/dL (6.4-8.2)
[2017-10-05] MEDS ORDERED: Magnesium Citrate Liq 300 ML Bottle PO ONE ×2 (14:00→16:30)
[2017-10-05] MEDS: Enoxaparin Inj 30 MG/0.3 ML Syringe SQ SCH (16:21)
[2017-10-06] MEDS: Dextrose 5%/NaCl 0.45% Inj 1,000 ML IV.CONT SCH (00:33)
[2017-10-06] MEDS: Sod Chloride 0.9% Inj 1,000 ML IV.CONT SCH ×4 (00:33→21:14)
[2017-10-06] MEDS: Potassium Chlor 20 mEq Premix 20 MEQ/100 ML PIGGYBACK IV.SIG PRN ×2 (01:00→06:07)
[2017-10-06] MEDS: Piperacil/Tazo 2.25 GM Premix 50 ML IV.SIG SCH (02:54)
[2017-10-06 04:26] LABS: Baso % (Auto) 0.7 % (0.0-2.0); Eos # (Auto) 0.1 th/mm3 (0.0-0.4); Eos % (Auto) 3.3 % (0.0-4.0); Hematocrit 31.1 % (35.0-46.0); Hemoglobin 10.9 gm/dL (11.6-15.3); Lymph # (Auto) 0.7 th/mm3 (1.0-4.8); Lymph % (Auto) 20.1 % (9.0-44.0); Mean Corpuscular HGB Conc 35.1 % (32.0-36.0); Mean Corpuscular Volume 105.3 fL (80.0-100.0); Mean Platelet Volume 7.5 fL (7.0-11.0); Mono # (Auto) 0.4 th/mm3 (0.0-0.9); Mono % (Auto) 10.2 % (0.0-8.0); Neut # (Auto) 2.4 th/mm3 (1.8-7.7); Neut % (Auto) 65.7 % (16.0-70.0); Platelet Count 105 th/mm3 (150-450); Red Blood Count 2.95 mil/mm3 (4.00-5.30); Red Cell Distribution Width 14.5 % (11.6-17.2); White Blood Count 3.7 th/mm3 (4.0-11.0)
[2017-10-06 04:53] LABS: Alanine Aminotransferase 118 U/L (10-53); Albumin 3.3 g/dL (3.4-5.0); Alkaline Phosphatase 72 U/L (45-117); Anion Gap 10 meq/L (5-15); Aspartate Aminotransferase 320 U/L (15-37); Blood Urea Nitrogen 5 mg/dL (7-18); Calcium 8.2 mg/dL (8.5-10.1); Carbon Dioxide 23.6 meq/L (21.0-32.0); Chloride 104 meq/L (98-107); Glomerular Filtration Rate Greater Than 89 mL/min (>89); Glucose,Random 89 mg/dL (74-106); Magnesium 2.1 mg/dL (1.5-2.5); Sodium 138 meq/L (136-145); Total Protein 6.5 g/dL (6.4-8.2)
[2017-10-06] MEDS: Chlorhexidine Gluconate 2% 1 Pack (2 Cloths) TOPICAL SCH (05:30)
[2017-10-06] MEDS: Insulin NovoLIN Regular Correctional Sugar Inj SQ SCH ×4 (07:58→21:02)
[2017-10-06] MEDS ORDERED: Metoprolol Tartrate 25 MG Tablet PO SCH (09:45)
[2017-10-06] MEDS ORDERED: Chlorhexidine Gluconate 2% 1 Pack (2 Cloths) TOPICAL SCH (09:45)
[2017-10-06] MEDS ORDERED: Sodium Chlor 0.9% Inj 500 ML IV.SIG SCH (10:00)
--- NOTE | 2017-10-06 11:08 | GIPROC ---
[facility] [address] [facility]. [place] [facility], [address] COLONOSCOPY PROCEDURE REPORT EXAM DATE: 10/06/2017 PATIENT NAME: Lara Mackey MR #: [id number] BIRTHDATE: 1975 ENDOSCOPIST: Noemi Zambrano MD ORDER #: [id number] CAUSTIC ROOM OPERATOR: Kyle Geller and Magdalena Thompson STATUS: inpatient INDICATIONS: The patient is a 42 yr old female here for a colonoscopy due to ABDOMINAL PAIN, ABNORMAL CT PROCEDURE PERFORMED: Colonoscopy, diagnostic Colonoscopy with biopsy MEDICATIONS: None and Per Anesthesia. PREP QUALITY: fair PREP TYPE:Other: ESTIMATED BLOOD LOSS: None CONSENT: The patient understands the risks and benefits of the procedure and understands that these risks include, but are not limited to: sedation, allergic reaction, infection, perforation and/or bleeding. Alternative means of evaluation and treatment include, among others: physical exam, x-rays, and/or surgical intervention. The patient elects to proceed with this endoscopic procedure. medical equipment was checked for proper function. Hand hygiene and appropriate measures for infection prevention was taken. After the risks, benefits and alternatives of the procedure were thoroughly explained, Informed consent was verified, confirmed and timeout was successfully executed by the treatment team. A digital exam revealed external hemorrhoids The endoscope was introduced through the anus and advanced to the cecum, which was identified by both the appendix and ileocecal valve. The instrument was then slowly withdrawn as the colon was fully examined. COLON FINDINGS: Normal colonoscopy-random biopsies from asending and descending colon terminal ileum could not be intubated. Retroflexed views revealed internal hemorrhoids and Retroflexed views revealed medium internal hemorrhoids The scope was then completely withdrawn from the patient and the procedure terminated. PROCEDURE WITHDRAWAL TIME:6minutes ADVERSE EVENTS: There were no complications. IMPRESSIONS: 1. Normal colonoscopy-random biopsies from asending and descending colon terminal ileum could not be intubated 2. Retroflexed views revealed internal hemorrhoids 3. Retroflexed views revealed medium internal hemorrhoids 4. Revealed external hemorrhoids RECOMMENDATIONS: 1. Await biopsy results. Biopsy results will not be ready for 7-10 days. If you don't hear from us in two weeks, call our office for results. 2. Avoid NSAIDS and Aspirin 3. Sbft RECALL: Return 5 years Colonoscopy Noemi Zambrano MD eSigned: Noemi Zambrano MD 10/06/2017 11:08 AM cc:
[2017-10-06] MEDS ORDERED: Lidocaine PF 1% Inj 5 ML Syringe INFILTRATN ONE (12:00)
--- NOTE | 2017-10-06 13:56 | P.PNFP ---
Subjective Interval history: No acute events overnight. Afebrile, vitals stable. Patient seen and examined this afternoon. Patient went for colonoscopy with gastroenterology this morning. Patient denies specific complaints or concerns other than desiring to get back to her room in order to shower. Denies vomiting , abdominal pain, fevers, denies visible blood in stools. <Diandra Carneysh - 10/06/17 13:56> Results - Labs Result diagrams: 10/06/17 04:04 10/06/17 04:04 <Yari Cazares - 10/07/17 11:22> Abnormal lab results 10/06/17 Range/Units 21:01 POC Glucose 118 H (68-110) mg/dl <Yari Cazares - 10/07/17 11:22> Abnormal lab results 10/06/17 10/06/17 Range/Units 04:04 04:04 WBC 3.7 L (4.0-11.0) th/mm3 RBC 2.95 L (4.00-5.30) mil/mm3 Hgb 10.9 L (11.6-15.3) gm/dL Hct 31.1 L (35.0-46.0) % MCV 105.3 H (80.0-100.0) fL MCH 37.0 H (27.0-34.0) pg Plt Count 105 L (150-450) th/mm3 Conway % (Auto) 10.2 H (0.0-8.0) % Lymph # (Auto) 0.7 L (1.0-4.8) th/mm3 Potassium 3.0 L (3.5-5.1) meq/L BUN 5 L (7-18) mg/dL Calcium 8.2 L D (8.5-10.1) mg/dL Total Bilirubin 1.3 H (0.2-1.0) mg/dL AST 320 H (15-37) U/L ALT 118 H (10-53) U/L Albumin 3.3 L D (3.4-5.0) g/dL Short CBC 10/06/17 Range/Units 04:04 WBC 3.7 L (4.0-11.0) th/mm3 Hgb 10.9 L (11.6-15.3) gm/dL Hct 31.1 L (35.0-46.0) % Plt Count 105 L (150-450) th/mm3 BMP 10/06/17 04:04 Sodium 138 Potassium 3.0 L Chloride 104 Carbon Dioxide 23.6 BUN 5 L Creatinine 0.68 Calcium 8.2 L D Liver Function 10/06/17 Range/Units 04:04 Total Bilirubin 1.3 H (0.2-1.0) mg/dL AST 320 H (15-37) U/L ALT 118 H (10-53) U/L Alkaline Phosphatase 72 (45-117) U/L Albumin 3.3 L D (3.4-5.0) g/dL <Jared Carney - 10/06/17 13:56> - Imaging Impressions Upper GI and Small Bowel X-Ray 10/06/17 00:00 CONCLUSION: Mild ileus. No obstruction or abnormal dilatation of small bowel. No discrete ulcerations. <Yari Cazares - 10/07/17 11:22> Physical Exam Vital signs: Vital Signs 10/06/17 16:00 10/06/17 20:00 10/07/17 00:00 Temperature 98.7 F 98.4 F 98 F Pulse Rate 86 81 76 Respiratory Rate 18 17 17 Blood Pressure 147/83 H 109/77 105/72 Pulse Oximetry 100 100 100 10/07/17 08:00 10/07/17 11:05 Temperature 98.9 F Pulse Rate 70 Respiratory Rate 16 Blood Pressure 130/86 Pulse Oximetry 100 99 Intake & Output 10/06/17 10/07/17 10/07/17 18:59 06:59 18:59 Intake Total 1730 / 1730 100 / 100 Balance 1730 / 1730 100 / 100 Intake: IV 1000 / 1000 100 / 100 LR 1000 mL Inj 1,000 ML @ 30 1000 / 1000 mls/hr IV.SIG .Q24H CARLOS Rx#: [id number] Flagyl 500 MG Inj 100 ML @ 100 100 / 100 mls/hr IV.SIG Q8H CARLOS Rx#: [id number] Oral 480 / 480 Anesthesia Amount 250 / 250 Other: # Voids 4 # Incontinent Voids 3 Date of Last Bowel Movement 10/06/17 # Bowel Movements 5 <Yari Cazares - 10/07/17 11:22> Vital Signs 10/05/17 14:00 10/05/17 15:00 10/05/17 16:00 Temperature Pulse Rate 87 78 82 Respiratory Rate 22 20 18 Blood Pressure Pulse Oximetry 10/05/17 17:01 10/05/17 20:00 10/05/17 22:52 Temperature 98.2 F Pulse Rate 191 H 84 Respiratory Rate 17 22 Blood Pressure 112/80 Pulse Oximetry 100 98 10/06/17 00:00 10/06/17 04:00 10/06/17 06:46 Temperature 99.5 F 98.6 F 97.9 F Pulse Rate 88 89 71 Respiratory Rate 20 16 Blood Pressure 114/82 114/82 118/86 Pulse Oximetry 99 100 96 10/06/17 08:00 Temperature 98.3 F Pulse Rate 82 Respiratory Rate 16 Blood Pressure 137/88 Pulse Oximetry 100 Intake & Output 10/05/17 10/06/17 10/06/17 18:59 06:59 18:59 Intake Total 440 / 440 1360 / 1360 250 / 250 Output Total 200 / 200 Balance 240 / 240 1360 / 1360 250 / 250 Intake: IV 200 / 200 400 / 400 Zosyn 2.25 GM Premix 50 ML @ 100 / 100 100 / 100 100 mls/hr IV.SIG Q6H CARLOS Rx#: [id number] KCl 20 mEq Premix Inj 20 meq In 100 / 100 100 ml @ 50 mls/hr IV.SIG Q2H PRN Rx#:[id number] Flagyl 500 MG Inj 100 ML @ 100 100 / 100 200 / 200 mls/hr IV.SIG Q8H CARLOS Rx#: [id number] Oral 240 / 240 960 / 960 Anesthesia Amount 250 / 250 Output: Emesis 200 / 200 Other: # Voids 2 7 Date of Last Bowel Movement 10/04/17 10/06/17 # Bowel Movements 0 5 # Emeses 1 <JulitagatojewelsJared - 10/06/17 13:56> Narrative: GENERAL: NAD, sitting comfortably in bed NEURO: Alert. Normal speech. 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 Motor grossly normal. SKIN: Warm and dry. No rashes or erythema. HEAD: Normocephalic. Atraumatic. EYES: EOMI. No injection or drainage. ENT: No nasal drainage. Moist mucous membranes. NECK: Supple, trachea midline. No JVD. CARDIOVASCULAR: Regular rate and rhythm without murmurs, rubs, or gallops. Peripheral pulses 2+. RESPIRATORY: Breath sounds clear to auscultation and equal bilaterally, without wheezes, rales, or rhonchi. No accessory muscle use. GASTROINTESTINAL: Abdomen soft, nontender throughout, nondistended. No rebound tenderness. No guarding. MUSCULOSKELETAL: No lower extremity edema. Normal range of motion. BACK: Nontender without obvious deformity. <Jared Carney - 10/06/17 13:56> Assessment and Plan - Assessment (1) RUQ abdominal pain Code(s): R10.11 - Right upper quadrant pain Status: Resolved (2) Anemia Code(s): D64.9 - Anemia, unspecified Status: Acute (3) Hypokalemia Code(s): E87.6 - Hypokalemia Status: Acute (4) MAN (acute kidney injury) Code(s): N17.9 - Acute kidney failure, unspecified Status: Resolved (5) Acidosis, lactic Code(s): E87.2 - Acidosis Status: Resolved (6) Alcoholic hepatitis Code(s): K70.10 - Alcoholic hepatitis without ascites Status: Chronic (7) Hyperglycemia Code(s): R73.9 - Hyperglycemia, unspecified Status: Resolved (8) Nutrition, metabolism, and development symptoms Code(s): R63.8 - Other symptoms and signs concerning food and fluid intake Status: Acute <Yari Cazares Jesika - 10/07/17 11:22> (1) RUQ abdominal pain Code(s): R10.11 - Right upper quadrant pain Status: Resolved Plan: Patient presented with reported 4-day history of nausea, vomiting, right-sided abdominal pain prior to admission here on 10/03 CT abdomen pelvis revealed inflammatory changes involving ileocolic junction as well as ascending and distal transverse colon Patient admitted to critical care medicine service and started empirically on Zosyn after blood cultures obtained, now discontinued Gastroenterology consulted, s/p colonoscopy 10/06 showing internal hemorrhoids, biopsies taken of ascending and descending colon - Stool studies ordered - Continue PPI and anti-emetics Consider etiology due to alcoholic hepatitis, IBS, colitis possibly infectious colitis, IBD, biliary colic Pain has improved and now resolved per patient after IV fluid administration and empiric Zosyn Continue flagyl per GI 500 mg IV q8h No reported family history of IBD, gallbladder disease, colon cancer, other GI issues Continue to monitor Hgb and liver enzymes (2) Anemia Code(s): D64.9 - Anemia, unspecified Status: Acute Plan: Patient asymptomatic and no report of GI bleed or other bleeding source Continue to monitor May be significant dilutional component Macrocytic anemia, patient with significant history of etoh abuse (3) Hypokalemia Code(s): E87.6 - Hypokalemia Status: Acute Plan: K+ 3.0 this AM Patient also noted to be hypomagnesemic previously, now normalized Vomiting seems to have resolved Replete orally Continue to monitor (4) MAN (acute kidney injury) Code(s): N17.9 - Acute kidney failure, unspecified Status: Resolved Plan: Cr 1.90 on admission, likely pre-renal due to dehydration Now normalized s/p IVF administration Continue to monitor (5) Acidosis, lactic Code(s): E87.2 - Acidosis Status: Resolved Plan: Patient had severe metabolic acidosis on admission, lactic acid of 9.4 Started on bicarp drip per critical care Acidosis resolved, repeat lactic acid 1.8 (6) Alcoholic hepatitis Code(s): K70.10 - Alcoholic hepatitis without ascites Status: Chronic Plan: Continue to monitor LFTs Continue IVF, folic acid, thiamine, MV Patient noted to have bilateral tremors of her hands Reported her last drink was on 09/29 Continue CIWA protocol (7) Hyperglycemia Code(s): R73.9 - Hyperglycemia, unspecified Status: Resolved Plan: Blood glucose noted to be 268 on admission, patient initially started on insulin drip due to suspicion for DKA given her symptomatology although per critical care unlikely the patient presented with DKA as she has no history of diabetes HbA1c 4.2 BGs now within normal limits Insulin drip discontinued (8) Nutrition, metabolism, and development symptoms Code(s): R63.8 - Other symptoms and signs concerning food and fluid intake Status: Acute Plan: Diet: heart healthy Electrolytes: as above, continue to monitor and replete as needed Fluids: per PO GI ppx: Protonix 40 mg po daily <Jared Carney - 10/06/17 13:56> - Assessment and Plan 42 year old female with PMH significant for etoh abuse and alcoholic hepatitis and hepatic steatosis, admitted to critical care on 10/03 due to 4-day history of nausea, vomiting, and right-sided abdominal pain, as well as severe dehydration with MAN, severe metabolic acidosis, and hyperglycemia which have resolved. Patient transferred to hospitalist service on 10/04. Gastroenterology consulted, colonoscopy performed on 10/06 as above. <Jared Carney - 10/06/17 13:57> - Attending Attestation The exam, history, and the medical decision-making described in the above note were completed with the assistance of the resident physician. I reviewed and agree with the findings presented. I attest that I had a [id number] encounter with the patient on the same day, and personally performed and documented my assessment and findings in the medical record. She was seen down in radiology as she was undergoing a small bowel follow- through at that time. Fortunately she has had no abdominal pain and reported only that she was very hungry and tired. <Yari Cazares - 10/07/17 11:22>
--- NOTE | 2017-10-06 15:14 | FL ---
EXAM DATE: 10/06/2017 3:05 PM EDT AGE/SEX: 42 years / Female INDICATIONS: Abnormal CT, vomiting. CLINICAL DATA: This is the patient's initial encounter. Patient reports that signs and symptoms have been present for 4 - 6 days and indicates a pain score of 0/10. MEDICAL/SURGICAL HISTORY: . lactic acidosis, hyperglycemia, acute kidney injury, constipation f or many years. . tubal occlusion, laparoscopy COMPARISON: [facility], CT ABDOMEN & PELVIS W/O CONTRAST, 10/03/2017. . FLUORO TIME: 0 IMAGE COUNT: 11 CONTRAST: FINDINGS: Preliminary film reveals a diffuse mild ileus. There is normal filling of the stomach and proximal and distal small bowel. No small bowel obstructio n. Terminal ileum appears unremarkable. Contrast reaches the large bowel within 1 hour. There is no o bstruction. No discrete ulcerations. CONCLUSION: Mild ileus. No obstruction or abnormal dilatation of small bowel. No discrete ulcerations. Electronically signed by: Harlan Perez MD 10/06/2017 3:13 PM EDT
[2017-10-06] MEDS: Folic Acid 1 MG Tablet PO SCH (16:26)
[2017-10-06] MEDS: Multivitamin/Minerals Therapeutic Tablet PO SCH (16:26)
[2017-10-06] MEDS: Pantoprazole Inj 40 MG Vial IV.PUSH SCH (16:26)
[2017-10-06] MEDS: Senna/Docusate Sodium 8.6/50 MG Tablet PO SCH ×2 (16:27→21:03)
[2017-10-07] MEDS: Dextrose 5%/NaCl 0.45% Inj 1,000 ML IV.CONT SCH (02:24)
[2017-10-07] MEDS: Piperacil/Tazo 2.25 GM Premix 50 ML IV.SIG SCH (02:24)
[2017-10-07] MEDS: Sod Chloride 0.9% Inj 1,000 ML IV.CONT SCH ×3 (02:25→12:26)
[2017-10-07] MEDS: Chlorhexidine Gluconate 2% 1 Pack (2 Cloths) TOPICAL SCH (06:32)
[2017-10-07] MEDS: Insulin NovoLIN Regular Correctional Sugar Inj SQ SCH ×2 (07:40→12:24)
--- NOTE | 2017-10-07 07:44 | ECG ---
Date Performed: 10/05/2017 Time Performed: 21:35:11 PTAGE: 42 years EKG: Sinus rhythm LOW QRS VOLTAGE IN PRECORDIAL LEADS NONSPECIFIC T-WAVE ABNORMALITY BORDERLINE ECG NO PREVIOUS TRACING DOCTOR: Cindy Keith Interpretating Date/Time 10/07/2017 07:38:28
[2017-10-07] MEDS: Multivitamin/Minerals Therapeutic Tablet PO SCH (09:19)
[2017-10-07] MEDS: Senna/Docusate Sodium 8.6/50 MG Tablet PO SCH (09:19)
[2017-10-07] MEDS: Folic Acid 1 MG Tablet PO SCH (09:19)
--- NOTE | 2017-10-07 09:29 | P.PNFP ---
Subjective Interval history: No acute events overnight. Afebrile, vitals stable. Patient seen and examined this morning. She states she is feeling well without reported complaints or concerns. Awaiting breakfast this morning. Denies abdominal pain, nausea or vomiting, diarrhea, fevers or chills. Denies visible blood in stools, no vaginal bleeding. Ambulating without issues. <LuizJared ashby - 10/07/17 09:29> Results - Labs Result diagrams: 10/06/17 04:04 10/06/17 04:04 <Yari Cazares - 10/07/17 11:26> Abnormal lab results 10/06/17 10/07/17 Range/Units 21:01 11:18 POC Glucose 118 H 176 H (68-110) mg/dl <Yari Cazares - 10/07/17 11:26> Abnormal lab results 10/06/17 Range/Units 21:01 POC Glucose 118 H (68-110) mg/dl <LuizJared ashby - 10/07/17 09:29> - Imaging Impressions Upper GI and Small Bowel X-Ray 10/06/17 00:00 CONCLUSION: Mild ileus. No obstruction or abnormal dilatation of small bowel. No discrete ulcerations. <Yari Cazares - 10/07/17 11:26> Impressions Upper GI and Small Bowel X-Ray 10/06/17 00:00 CONCLUSION: Mild ileus. No obstruction or abnormal dilatation of small bowel. No discrete ulcerations. <LuizJared ashby - 10/07/17 09:29> Physical Exam Vital signs: Vital Signs 10/06/17 16:00 10/06/17 20:00 10/07/17 00:00 Temperature 98.7 F 98.4 F 98 F Pulse Rate 86 81 76 Respiratory Rate 18 17 17 Blood Pressure 147/83 H 109/77 105/72 Pulse Oximetry 100 100 100 10/07/17 08:00 10/07/17 11:05 Temperature 98.9 F Pulse Rate 70 Respiratory Rate 16 Blood Pressure 130/86 Pulse Oximetry 100 99 Intake & Output 10/06/17 10/07/17 10/07/17 18:59 06:59 18:59 Intake Total 1730 / 1730 100 / 100 Balance 1730 / 1730 100 / 100 Intake: IV 1000 / 1000 100 / 100 LR 1000 mL Inj 1,000 ML @ 30 1000 / 1000 mls/hr IV.SIG .Q24H CARLOS Rx#: [id number] Flagyl 500 MG Inj 100 ML @ 100 100 / 100 mls/hr IV.SIG Q8H CARLOS Rx#: [id number] Oral 480 / 480 Anesthesia Amount 250 / 250 Other: # Voids 4 # Incontinent Voids 3 Date of Last Bowel Movement 10/06/17 # Bowel Movements 5 <Yari Cazares M - 10/07/17 11:26> Vital Signs 10/06/17 16:00 10/06/17 20:00 10/07/17 00:00 Temperature 98.7 F 98.4 F 98 F Pulse Rate 86 81 76 Respiratory Rate 18 17 17 Blood Pressure 147/83 H 109/77 105/72 Pulse Oximetry 100 100 100 10/07/17 08:00 Temperature 98.9 F Pulse Rate 70 Respiratory Rate 16 Blood Pressure 130/86 Pulse Oximetry 100 Intake & Output 10/06/17 10/07/17 10/07/17 18:59 06:59 18:59 Intake Total 1730 / 1730 100 / 100 Balance 1730 / 1730 100 / 100 Intake: IV 1000 / 1000 100 / 100 LR 1000 mL Inj 1,000 ML @ 30 1000 / 1000 mls/hr IV.SIG .Q24H CARLOS Rx#: [id number] Flagyl 500 MG Inj 100 ML @ 100 100 / 100 mls/hr IV.SIG Q8H CARLOS Rx#: [id number] Oral 480 / 480 Anesthesia Amount 250 / 250 Other: # Voids 4 # Incontinent Voids 3 # Bowel Movements 5 <Diandra Carneysh - 10/07/17 09:29> Narrative: GENERAL: NAD, sitting comfortably in bed NEURO: Alert. Normal speech. 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 Motor grossly normal. SKIN: Warm and dry. No rashes or erythema. HEAD: Normocephalic. Atraumatic. EYES: EOMI. No injection or drainage. ENT: No nasal drainage. Moist mucous membranes. NECK: Supple, trachea midline. No JVD. CARDIOVASCULAR: Regular rate and rhythm without murmurs, rubs, or gallops. Peripheral pulses 2+. RESPIRATORY: Breath sounds clear to auscultation and equal bilaterally, without wheezes, rales, or rhonchi. No accessory muscle use. GASTROINTESTINAL: Abdomen soft, nontender throughout, nondistended. No rebound tenderness. No guarding. MUSCULOSKELETAL: No lower extremity edema. Normal range of motion. BACK: Nontender without obvious deformity. <Jared Carney - 10/07/17 09:29> Assessment and Plan - Assessment (1) RUQ abdominal pain Code(s): R10.11 - Right upper quadrant pain Status: Resolved (2) Anemia Code(s): D64.9 - Anemia, unspecified Status: Acute (3) Hypokalemia Code(s): E87.6 - Hypokalemia Status: Acute (4) MAN (acute kidney injury) Code(s): N17.9 - Acute kidney failure, unspecified Status: Resolved (5) Acidosis, lactic Code(s): E87.2 - Acidosis Status: Resolved (6) Alcoholic hepatitis Code(s): K70.10 - Alcoholic hepatitis without ascites Status: Chronic (7) Hyperglycemia Code(s): R73.9 - Hyperglycemia, unspecified Status: Resolved (8) Nutrition, metabolism, and development symptoms Code(s): R63.8 - Other symptoms and signs concerning food and fluid intake Status: Acute <Yari Cazares Jesika - 10/07/17 11:26> (1) RUQ abdominal pain Code(s): R10.11 - Right upper quadrant pain Status: Resolved Plan: Patient presented with reported 4-day history of nausea, vomiting, right-sided abdominal pain prior to admission here on 10/03 CT abdomen pelvis revealed inflammatory changes involving ileocolic junction as well as ascending and distal transverse colon Patient admitted to critical care medicine service and started empirically on Zosyn after blood cultures obtained, now discontinued Gastroenterology consulted, s/p colonoscopy 10/06 showing internal hemorrhoids, biopsies taken of ascending and descending colon - Stool studies ordered - Continue PPI and anti-emetics -Small bowel follow-through showing mild ileus; no obstruction or abnormal dilatation of small bowel, no ulcerations. Consider etiology due to alcoholic hepatitis, IBS, colitis possibly infectious colitis, IBD, biliary colic Pain has improved and now resolved per patient after IV fluid administration and empiric Zosyn Continue flagyl per GI 500 mg IV q8h No reported family history of IBD, gallbladder disease, colon cancer, other GI issues Continue to monitor Hgb and liver enzymes (2) Anemia Code(s): D64.9 - Anemia, unspecified Status: Acute Plan: Patient asymptomatic and no report of GI bleed or other bleeding source Continue to monitor May be significant dilutional component Macrocytic anemia, patient with significant history of etoh abuse (3) Hypokalemia Code(s): E87.6 - Hypokalemia Status: Acute Plan: Patient also noted to be hypomagnesemic previously, now normalized Vomiting seems to have resolved Replete orally Continue to monitor (4) MAN (acute kidney injury) Code(s): N17.9 - Acute kidney failure, unspecified Status: Resolved Plan: Cr 1.90 on admission, likely pre-renal due to dehydration Now normalized s/p IVF administration Continue to monitor (5) Acidosis, lactic Code(s): E87.2 - Acidosis Status: Resolved Plan: Patient had severe metabolic acidosis on admission, lactic acid of 9.4 Started on bicarp drip per critical care Acidosis resolved, repeat lactic acid 1.8 (6) Alcoholic hepatitis Code(s): K70.10 - Alcoholic hepatitis without ascites Status: Chronic Plan: Continue to monitor LFTs Continue IVF, folic acid, thiamine, MV Patient noted to have bilateral tremors of her hands Reported her last drink was on 09/29 Continue CIWA protocol (7) Hyperglycemia Code(s): R73.9 - Hyperglycemia, unspecified Status: Resolved Plan: Blood glucose noted to be 268 on admission, patient initially started on insulin drip due to suspicion for DKA given her symptomatology although per critical care unlikely the patient presented with DKA as she has no history of diabetes HbA1c 4.2 BGs now within normal limits Insulin drip discontinued (8) Nutrition, metabolism, and development symptoms Code(s): R63.8 - Other symptoms and signs concerning food and fluid intake Status: Acute Plan: Diet: heart healthy Electrolytes: as above, continue to monitor and replete as needed Fluids: per PO GI ppx: Protonix 40 mg po daily <Jared Carney - 10/07/17 09:14> - Assessment and Plan 42 year old female with PMH significant for etoh abuse and alcoholic hepatitis and hepatic steatosis, admitted to critical care on 10/03 due to 4-day history of nausea, vomiting, and right-sided abdominal pain, as well as severe dehydration with MAN, severe metabolic acidosis, and hyperglycemia which have resolved. Patient transferred to hospitalist service on 10/04. Gastroenterology consulted, colonoscopy and SBFT performed on 10/06 as above. <Jared Carney - 10/07/17 09:29> - Attending Attestation The exam, history, and the medical decision-making described in the above note were completed with the assistance of the resident physician. I reviewed and agree with the findings presented. I attest that I had a [id number] encounter with the patient on the same day, and personally performed and documented my assessment and findings in the medical record. She was sitting up and eating her breakfast had no complaints and was very ready to be discharged home. She is aware that her drinking alcohol has been affecting her adversely. She seems to have underlying anxiety contributing to this problem. Her pancytopenia is likely due to the excess alcohol consumption. It has been stable. If she continues to consume alcohol her pancytopenia likely will not improve however if she stops it will probably go back to normal. This can be followed up as an outpatient and labs can be done after she leaves the hospital to see what is happening. <Yari Cazares - 10/07/17 11:26>
--- NOTE | 2017-10-07 09:51 | P.PNGI ---
Subjective Interval history: Pt sitting up in bed. States she feels great today. Denies nausea, vomiting, abdominal pain. Had multiple watery BMs after SBFT yesterday. States she is passing a lot of flatus. Has not had breakfast yet. <Amie Montero - Last Filed: 10/07/17 09:40> Physical Exam Vital signs: Vital Signs 10/06/17 16:00 10/06/17 20:00 10/07/17 00:00 Temperature 98.7 F 98.4 F 98 F Pulse Rate 86 81 76 Respiratory Rate 18 17 17 Blood Pressure 147/83 H 109/77 105/72 Pulse Oximetry 100 100 100 10/07/17 08:00 Temperature 98.9 F Pulse Rate 70 Respiratory Rate 16 Blood Pressure 130/86 Pulse Oximetry 100 Intake & Output 10/06/17 10/07/17 10/07/17 18:59 06:59 18:59 Intake Total 1730 / 1730 100 / 100 Balance 1730 / 1730 100 / 100 Intake: IV 1000 / 1000 100 / 100 LR 1000 mL Inj 1,000 ML @ 30 1000 / 1000 mls/hr IV.SIG .Q24H CARLOS Rx#: [id number] Flagyl 500 MG Inj 100 ML @ 100 100 / 100 mls/hr IV.SIG Q8H [facility]LOS Rx#: [id number] Oral 480 / 480 Anesthesia Amount 250 / 250 Other: # Voids 4 # Incontinent Voids 3 Date of Last Bowel Movement 10/06/17 # Bowel Movements 5 - Constitutional no acute distress - Routine HEENT Exam Head: Present: normocephalic, atraumatic - Routine Respiratory Exam Absent: accessory muscle use - Routine Abdominal Exam Present: soft, normoactive bowel sounds. Absent: tenderness, distended - Routine Skin Exam Present: dry, warm - Routine Neurological Exam Present: alert, oriented X3 <Amie Montero - Last Filed: 10/07/17 09:40> Vital signs: Vital Signs 10/06/17 16:00 10/06/17 20:00 10/07/17 00:00 Temperature 98.7 F 98.4 F 98 F Pulse Rate 86 81 76 Respiratory Rate 18 17 17 Blood Pressure 147/83 H 109/77 105/72 Pulse Oximetry 100 100 100 10/07/17 08:00 10/07/17 11:05 10/07/17 12:00 Temperature 98.9 F 97.9 F Pulse Rate 70 86 Respiratory Rate 16 16 Blood Pressure 130/86 124/85 Pulse Oximetry 100 99 100 Intake & Output 10/06/17 10/07/17 10/07/17 18:59 06:59 18:59 Intake Total 1730 / 1730 200 / 200 Balance 1730 / 1730 200 / 200 Intake: IV 1000 / 1000 200 / 200 LR 1000 mL Inj 1,000 ML @ 30 1000 / 1000 mls/hr IV.SIG .Q24H CARLOS Rx#: [id number] Flagyl 500 MG Inj 100 ML @ 100 200 / 200 mls/hr IV.SIG Q8H [facility]LOS Rx#: [id number] Oral 480 / 480 Anesthesia Amount 250 / 250 Other: # Voids 4 # Incontinent Voids 3 Date of Last Bowel Movement 10/06/17 # Bowel Movements 5 <Noemi Zambrano - Last Filed: 10/07/17 15:21> Results - Labs CBC & Chem 7: 10/06/17 04:04 10/06/17 04:04 Laboratory Results - last 24 hr 10/06/17 10/06/17 10/06/17 12:25 17:49 21:01 POC Glucose 86 87 118 H 10/07/17 07:35 POC Glucose 105 Microbiology 10/03/17 08:57 Blood - Peripheral Aerobic Blood Culture - Preliminary No growth in 3 days 10/03/17 08:57 Blood - Peripheral Anaerobic Blood Culture - Preliminary No growth in 3 days 10/03/17 08:50 Blood - Peripheral Aerobic Blood Culture - Preliminary No growth in 3 days 10/03/17 08:50 Blood - Peripheral Anaerobic Blood Culture - Preliminary No growth in 3 days - Imaging Impressions Upper GI and Small Bowel X-Ray 10/06/17 00:00 CONCLUSION: Mild ileus. No obstruction or abnormal dilatation of small bowel. No discrete ulcerations. <Amie Montero - Last Filed: 10/07/17 09:40> - Labs CBC & Chem 7: 10/07/17 11:45 10/07/17 11:45 Laboratory Results - last 24 hr 10/06/17 10/06/17 10/07/17 17:49 21:01 07:35 WBC RBC Hgb Hct MCV MCH MCHC RDW Plt Count MPV Neut % (Auto) Lymph % (Auto) [place] % (Auto) Eos % (Auto) Baso % (Auto) Neut # (Auto) Lymph # (Auto) [place] # (Auto) Eos # (Auto) Baso # (Auto) WBC Differential Differential Comment Sodium Potassium Chloride Carbon Dioxide Anion Gap BUN Creatinine Estimated GFR POC Glucose 87 118 H 105 Random Glucose Calcium Total Bilirubin AST ALT Alkaline Phosphatase Total Protein Albumin 10/07/17 10/07/17 10/07/17 11:18 11:45 11:45 WBC 5.6 RBC 3.48 L Hgb 12.8 Hct 36.9 MCV 106.3 H MCH 36.8 H MCHC 34.6 RDW 14.1 Plt Count 179 D MPV 7.8 Neut % (Auto) 65.5 Lymph % (Auto) 18.2 Wayne % (Auto) 13.2 H Eos % (Auto) 2.2 Baso % (Auto) 0.9 Neut # (Auto) 3.7 Lymph # (Auto) 1.0 Wayne # (Auto) 0.7 Eos # (Auto) 0.1 Baso # (Auto) 0.1 WBC Differential . Differential Comment Auto diff final Sodium 138 Potassium 3.5 Chloride 103 Carbon Dioxide 23.0 Anion Gap 12 BUN 4 L Creatinine 0.84 Estimated GFR 74 L POC Glucose 176 H Random Glucose 147 H Calcium 9.8 D Total Bilirubin 1.0 AST 316 H ALT 196 H Alkaline Phosphatase 94 Total Protein 7.8 D Albumin 4.0 D Microbiology 10/03/17 08:57 Blood - Peripheral Aerobic Blood Culture - Preliminary No growth in 4 days 10/03/17 08:57 Blood - Peripheral Anaerobic Blood Culture - Preliminary No growth in 4 days 10/03/17 08:50 Blood - Peripheral Aerobic Blood Culture - Preliminary No growth in 4 days 10/03/17 08:50 Blood - Peripheral Anaerobic Blood Culture - Preliminary No growth in 4 days <Noemi Zambrano - Last Filed: 10/07/17 15:21> Assessment and Plan - Plan Assessment: - Abdominal pain, imaging concerning for IBD- although given lactic acidosis noted to be question of infectious colitis Complaints of nausea, vomiting, RUQ abdominal pain x 4 days. Denies any diarrhea on admission. CT abdomen and pelvis WO IV contrast --> Chronic inflammatory changes of the colon and terminal ileum, with evidence of more active inflammation involving the ascending and distal transverse colon. Given the chronic changes, recommend clinical correlation for inflammatory bowel disease such as ulcerative colitis. Hepatic steatosis. Colonoscopy (10/06) --> Normal colonoscopy, random biopsies taken- terminal ileum could not be intubated. Internal hemorrhoids and external hemorrhoids. Upper GI with SBFT --> Mild ileus. No obstruction or abnormal dilatation of small bowel. No discrete ulcerations. - ETOH hepatitis- daily ETOH- reports a few liquor drinks a day labs consistent with this (10/06) AST-320 ALT-118 T bili-1.3 Alk phos-72 - Anemia- macrocytic, hyperchromic- given ETOH history likely folate and B12 deficiency (10/07) Pt states she is feeling great today. Denies nausea, vomiting, abdominal pain. Multiple watery BMs after SBFT yesterday. Also reports passing a lot of gas. No repeat LFTs from today Plan: Colon biopsies pending Avoid NSAIDs and ASA Stop drinking ETOH ? capsule endoscopy outpatient GI will sign off, have pt follow up with GI after DC Pt has been seen and examined by myself and Dr. Zambrano and this note is written on her behalf <Amie Montero - Last Filed: 10/07/17 09:40> - Attending Attestation seen, examined agree with above ok to dc home [place] [facility] <Noemi Zambrano - Last Filed: 10/07/17 15:21>
[2017-10-07 12:22] LABS: Baso # (Auto) 0.1 th/mm3 (0.0-0.2); Baso % (Auto) 0.9 % (0.0-2.0); Eos # (Auto) 0.1 th/mm3 (0.0-0.4); Eos % (Auto) 2.2 % (0.0-4.0); Hematocrit 36.9 % (35.0-46.0); Hemoglobin 12.8 gm/dL (11.6-15.3); Lymph % (Auto) 18.2 % (9.0-44.0); Mean Corpuscular HGB Conc 34.6 % (32.0-36.0); Mean Corpuscular Hemoglobin 36.8 pg (27.0-34.0); Mean Corpuscular Volume 106.3 fL (80.0-100.0); Mean Platelet Volume 7.8 fL (7.0-11.0); Mono # (Auto) 0.7 th/mm3 (0.0-0.9); Mono % (Auto) 13.2 % (0.0-8.0); Neut # (Auto) 3.7 th/mm3 (1.8-7.7); Neut % (Auto) 65.5 % (16.0-70.0); Platelet Count 179 th/mm3 (150-450); Red Blood Count 3.48 mil/mm3 (4.00-5.30); Red Cell Distribution Width 14.1 % (11.6-17.2); White Blood Count 5.6 th/mm3 (4.0-11.0)
[2017-10-07 12:44] LABS: Alanine Aminotransferase 196 U/L (10-53); Alkaline Phosphatase 94 U/L (45-117); Anion Gap 12 meq/L (5-15); Aspartate Aminotransferase 316 U/L (15-37); Blood Urea Nitrogen 4 mg/dL (7-18); Calcium 9.8 mg/dL (8.5-10.1); Chloride 103 meq/L (98-107); Glomerular Filtration Rate 74 mL/min (>89); Glucose,Random 147 mg/dL (74-106); Potassium 3.5 meq/L (3.5-5.1); Sodium 138 meq/L (136-145); Total Protein 7.8 g/dL (6.4-8.2)
[2017-10-07 18:12] VITALS: BP 124/85; PULSE 86; TEMP 97.9; O2SAT 100
--- NOTE | 2017-10-08 09:41 | P.DS ---
Date of admission: 10/03/17 07:25 Primary care physician: Michael Carter MD Anticipated date of discharge: 10/07/17 Brief History from admission: Per HPI from admission H&P by critical care: 42-year-old female with a medical history significant for alcohol abuse and alcohol induced liver disease who presented to the ER with history of nausea vomiting and right-sided abdominal pain going on for about 4 days. She tells me that she has 2 drinks of vodka daily having recently resumed. She has previously been told that she has alcohol induced liver disease by her primary care physician Dr. Carter. Patient was evaluated in the ER at [place] and was noted to have a severe metabolic acidosis with lactic acid level of 9. CT abdomen pelvis revealed inflammatory changes involving ileocolic junction as well as ascending and transverse colon. Patient was accepted for admission by critical care medicine service and [place] [facility] [place] her arrival. She was given 2 L fluid bolus and given empiric Zosyn after obtaining cultures at [place]. I placed patient on a bicarb drip due to severe metabolic acidosis. She had been initiated on insulin drip for DKA protocol though I doubt this is DKA. She does not have a history of diabetes mellitus. DS: Diagnosis - Discharge Diagnosis (1) RUQ abdominal pain Status: Resolved (2) Anemia Status: Acute (3) Hypokalemia Status: Acute (4) MAN (acute kidney injury) Status: Resolved (5) Acidosis, lactic Status: Resolved (6) Alcoholic hepatitis Status: Chronic (7) Hyperglycemia Status: Resolved (8) Nutrition, metabolism, and development symptoms Status: Acute DS: Medications - Discharge Medications Prescriptions: pantoprazole 40 mg PO DAILY #30 tab potassium chloride 20 meq PO DAILY #14 tab potassium chloride 20 meq PO DAILY #14 tab DS: Summary Hospital Course: Patient was admitted to the ICU by critical care started on a bicarbonate drip given her severe metabolic acidosis. Insulin drip was discontinued as the patient was thought not to have DKA given no previous history of diabetes. Her A1c was 4.2. Gastroenterology was consulted. Patient had a colonoscopy on 10/06 which showed normal colon with random biopsies from the ascending and descending colon obtained, internal and external hemorrhoids. Small bowel follow-through showed mild ileus, no obstruction or abnormal dilatation of small bowel, no discrete ulcerations. The patient's GI symptoms of nausea, vomiting, and right-sided abdominal pain improved after IV fluid administration. Her hemoglobin was monitored as it was noted to decrease to 11.2 from 15.5 on admission, likely a large dilutional component as the patient had poor p.o. intake prior to admission and hemoconcentrated at that time. Her hemoglobin remained stable thereafter and was 12.8 prior to discharge. Patient was counseled on multiple occasions to quit drinking alcohol and to follow-up closely with her PCP Dr. Carter as well as gastroenterology. - Time Spent with Patient Total time spent providing and/or coordinating discharge services: Less than 30 minutes Exam Vital signs: Vital Signs 10/07/17 11:05 10/07/17 12:00 Temperature 97.9 F Pulse Rate 86 Respiratory Rate 16 Blood Pressure 124/85 Pulse Oximetry 99 100 Intake & Output 10/07/17 10/08/17 10/08/17 18:59 06:59 18:59 Other: Date of Last Bowel Movement 10/06/17 Narrative: GENERAL: NAD, sitting comfortably in bed NEURO: Alert. Normal speech. lehr loader grossly intact. Motor grossly normal. SKIN: Warm and dry. No rashes or erythema. HEAD: Normocephalic. Atraumatic. EYES: EOMI. No injection or drainage. ENT: No nasal drainage. Moist mucous membranes. NECK: Supple, trachea midline. No JVD. CARDIOVASCULAR: Regular rate and rhythm without murmurs, rubs, or gallops. Peripheral pulses 2+. RESPIRATORY: Breath sounds clear to auscultation and equal bilaterally, without wheezes, rales, or rhonchi. No accessory muscle use. GASTROINTESTINAL: Abdomen soft, nontender throughout, nondistended. No rebound tenderness. No guarding. MUSCULOSKELETAL: No lower extremity edema. Normal range of motion. BACK: Nontender without obvious deformity. Results Procedures completed during hospitalization: Colonoscopy SBFT Completed studies during hospitalization: Pending at discharge 10/06/17 13:37 Surgical [PTH] Routine Labs on day of discharge: Labs from last 24 hours 10/07/17 10/07/17 10/07/17 11:45 11:45 11:18 WBC 5.6 RBC 3.48 L Hgb 12.8 Hct 36.9 MCV 106.3 H MCH 36.8 H MCHC 34.6 RDW 14.1 Plt Count 179 D MPV 7.8 Neut % (Auto) 65.5 Lymph % (Auto) 18.2 [facility] % (Auto) 13.2 H Eos % (Auto) 2.2 Baso % (Auto) 0.9 Neut # (Auto) 3.7 Lymph # (Auto) 1.0 [facility] # (Auto) 0.7 Eos # (Auto) 0.1 Baso # (Auto) 0.1 WBC Differential . Differential Comment Auto diff final Sodium 138 Potassium 3.5 Chloride 103 Carbon Dioxide 23.0 Anion Gap 12 BUN 4 L Creatinine 0.84 Estimated GFR 74 L POC Glucose 176 H Random Glucose 147 H Calcium 9.8 D Total Bilirubin 1.0 AST 316 H ALT 196 H Alkaline Phosphatase 94 Total Protein 7.8 D Albumin 4.0 D Preliminary micro results at discharge 10/03/17 08:57 Aerobic Blood Culture - Preliminary Blood - Peripheral No growth in 4 days Anaerobic Blood Culture - Preliminary No growth in 4 days 10/03/17 08:50 Aerobic Blood Culture - Preliminary Blood - Peripheral No growth in 4 days Anaerobic Blood Culture - Preliminary No growth in 4 days - Impressions ITS Impressions Abdomen/Pelvis CT 10/03/17 05:48 CONCLUSION: 1. Chronic inflammatory changes of the colon and terminal ileum, with evidence of more active inflammation involving the ascending and distal transverse colon. Given the chronic changes, recommend clinical correlation for inflammatory bowel disease such as ulcerative colitis. 2. Hepatic steatosis. Upper GI and Small Bowel X-Ray 10/06/17 00:00 CONCLUSION: Mild ileus. No obstruction or abnormal dilatation of small bowel. No discrete ulcerations. Discharge Plan - Discharge Disposition Patient Disposition: 01 Discharge Home - Discharge Condition Condition: Stable - Discharge Order Discharge Orders: Discharge Order (Routine); Ordered 10/07/17 Ordered By: Jared Carney - Discharge Details Anticipated Discharge Date: 10/07/17 - Physicians Team Primary Care Provider: Michael Carter Attending Provider: Yari Cazares Other Providers: Arely Chauhan MD ; [employer],Insurance ; Kieran Cotto MD
== END 2017-10-07 15:37 | disposition home or self-care (01) ==
LOC: PHED 04:18 → PHEDA 07:25 → HIMC 10:15 → N07 10-06 06:32
PROVIDERS: ADMIT Family Medicine; ATTEND Family Medicine
PROC: COLONOS (2017-10-06 10:32)